=== PATIENT | female | born 1990 | race African-American/Black ===

== ENCOUNTER → 2018-04-10 | Outpatient (CLI) | payer OTHER | END | disposition home or self-care (01) | LOC: C.PATHSPEC 17:19 | PROVIDERS: ATTEND Surgery | DX: Z30.46 Encounter for surveillance of implantable subdermal contraceptive (principal) ==

== ENCOUNTER 2019-10-14 07:47 | Inpatient (IN) ==
[2019-10-14] MEDS ORDERED: OXYTOCIN 30 UNITS/500 ML BAG IV PRN ×3 (07:55→19:30)
--- NOTE | 2019-10-14 08:10 | History & Physical Report ---
Date of Service October 14, 2019 Assessment & Plan (1) Elective induction of labor planned: 29 yo F PMHx GDM diet-controlled @ 39.3 weeks here for elective induction of labor. - Planning epidural. - Anticipate vaginal delivery; Pit started. - Will need intrapartum GBS treatment; AROM will be performed after treatment completed. History of Present Illness Primary Care Provider: Fatemeh Blake MD Genaro is a 29 yo F ; dating parameters 39.3weeks by LMP; Reason for induction/; complications with GDM diet-controlled this . Attended OB appointments with [facility]. Denies contractions, confirms movement; denies fluid loss or vaginal bleeding. Labs (03/08/2019; 10/14/2019): Blood type: O+ Antibody screen: negative Hgb: 11.1 Hct: 34.0% WBC: 8.63 Plt: 189 Rubella status: immune VDLR/RPR: nonreactive Gonorrhea: negative Chlamydia: negative HIV: negative GBS: positive HbSAg: negative Allergies Allergy/AdvReac Type Severity Reaction Status Date / Time No Known Drug Allergies Allergy Unknown none Verified 10/11/19 14:28 Home Medications Home Medications Medication Instructions Recorded Confirmed Type vit-iron fum-folic ac 1 tab PO DAILY 07/28/19 10/14/19 History [ Vitamin] ondansetron 4 mg disintegrating 4 mg PO Q6H PRN #30 tab 08/12/19 10/14/19 Rx tablet acetone (urine) test #50 ea 08/15/19 10/14/19 Rx blood sugar diagnostic #120 ea 08/15/19 10/14/19 Rx lancets 33 gauge #120 ea 08/15/19 10/14/19 Rx ferrous sulfate 325 mg PO DAILY 10/03/19 10/14/19 History Patient History Medical History (Updated 10/14/19 @ 08:14 by Denisha Briceño DO) History of chlamydia infection History of spontaneous Miscarriage Surgical History (Updated 10/14/19 @ 08:10 by Adrianne Fernandes RN) H/O oral surgery wisdom teeth removed 2010 Status post laparoscopic cholecystectomy 2013 Social History (Updated 04/26/19 @ 14:43 by Ysabel Mcdermott) Preferred Language: Moldovan Communication Ability: Effective Resident Care Coordinator Required: No Beliefs That Will Affect Care: None marital status: Current Living Situation: Spouse and Family Other Information That Helps Us Care for You: No Feels Safe at Home: Yes Safety Concerns: Feels Safe At This Time Smoking Status: Never smoker Hx Alcohol Use: No Hx Substance Use: No Review of Systems Constitutional: denies fever, chills, sweats, headache Respiratory: denies SOB, difficulty breathing Cardiac: denies CP, chest palpitations, chest pressure Breast: denies breast pain : denies dysuria Physical Exam Physical Exam: General: patient is alert and oriented, in NAD Cardiac: +S1/S2, no murmurs rubs or gallops Respiratory: lungs CTA b/l, anteriorly and posteriorly, no wheezes rales or rhonchi, no increased work of breathing, symmetric chest rise, no respiratory distress Abdomen: soft, NT, +bowel sounds Uterus: uterine fundus firm. Lower Extremities: no LE edema or swelling, no deep calf pain, Terell's sign n egative b/l Genitourinary: Manual OB Exam: + cervical dilation 4 cm, + cervical effacement 60% and + station -2 OB Exam Monitor Tracing: + external FHT monitor used (HR 150s), + external uterine monitor used, + category I and + normal FHT variability Results & Data Vital Signs (Past 12 Hours) Vital Signs Pulse BP 10/14/19 08:04 111 H 136/82 Laboratory Results Laboratory Results - last 24 hr 10/14/19 08:04 WBC 8.63 RBC 4.44 Hgb 11.1 L Hct 34.0 L MCV 76.6 L MCH 25.0 MCHC 32.6 RDW Std Deviation 46.1 RDW Coeff of Nir 16.6 H Plt Count 189 MPV 10.3 Supervising Physician Co-Signing Physician Notes Resident Physician Supervision Note: I was present with Dr. Briceño during the history and exam. I discussed the case with the resident and agree with the findings and plan as documented in the note. Any exceptions or clarifications are listed here: Will plan to start pitocin and PCN for GBS prophylaxis. Will plan for AROM. Documented By: Kimberly Richardson DO Resident Activity Tracking Resident Involvement: Resident Care Provided Care Provided: OB Delivery
[2019-10-14] MEDS ORDERED: PENICILLIN G POTASSIUM 6 MU in DEXTROSE 5% 250 ML IV ONE (08:15)
[2019-10-14 08:29] LABS: Hemoglobin 11.1 g/dL (12.0-16.0); Mean Corpuscular Hgb Conc 32.6 g/dL (32-36); Mean Corpuscular Volume 76.6 fL (80-100); Mean Platelet Volume 10.3 fL (7.4-10.4); Platelet Count 189 K/uL (130-400); RDW Coefficient of Variation 16.6 % (11.5-14.5); RDW Standard Deviation 46.1 fL (36.4-46.3); Red Blood Count 4.44 M/uL (4.2-5.4); White Blood Count 8.63 K/uL (4.8-10.8)
[2019-10-14] MEDS: LACTATED RINGER'S 1,000 ML IV PRN ×2 (09:02→15:49)
[2019-10-14] MEDS: PENICILLIN G POTASSIUM 3 MU in DEXTROSE 5% 100 ML IV PRN ×2 (12:35→16:37)
--- NOTE | 2019-10-14 14:42 | Obstetrical Progress Note ---
Date of Service October 14, 2019 Subjective Feeling contractions. Pitocin at 19. Does not desire epidural at this time. AROM performed, clear fluid. Cervix 4-5/70/-2. FHT Cat 1 [place] Q 2 Results & Data Vital Signs (Past 12 Hours) Vital Signs Temp Pulse Resp BP 10/14/19 14:02 72 20 129/86 10/14/19 13:33 20 10/14/19 13:05 82 122/73 10/14/19 12:05 76 20 116/57 L 10/14/19 11:02 36.8 C 88 20 133/93 10/14/19 10:04 95 H 20 133/77 10/14/19 09:15 95 H 20 153/95 H 10/14/19 09:12 99 H 136/100 10/14/19 08:15 36.8 C 111 H 20 136/82 10/14/19 08:04 36.8 C 111 H 20 136/82 PG Care Time/CCT Total # of Minutes Spent Total Time Spent with Patient: Total time spent is greater than 50% in coordination of care (as documented) at patient's floor/unit and/or counseling patient:
[2019-10-14] MEDS ORDERED: fentaNYL citrate 100 MCG/2 ML VIAL ONE (15:23)
[2019-10-14] MEDS ORDERED: fentaNYL 2MCG/ML ROPIV 1.25MG/ML 100 ML BAG EPI ONE (15:24)
[2019-10-14] MEDS ORDERED: BUPIVACAINE 0.25% 30 ML VIAL ONE (15:24)
[2019-10-14] MEDS ORDERED: ePHEDrine sulfate 50 MG/ML AMP ONE (15:24)
[2019-10-14] MEDS ORDERED: ONDANSETRON INJ 2 MG/ML 2 ML VIAL IV PRN (16:04)
[2019-10-14] MEDS ORDERED: NALOXONE HCL 1 MG in SODIUM CHLORIDE 0.9% 1000ML 1,000 ML IV PRN (16:04)
[2019-10-14] MEDS ORDERED: ePHEDrine sulfate 50 MG/ML AMP IV PRN (16:04)
[2019-10-14] MEDS ORDERED: DiphenhydrAMINE HCL 50 MG/ML VIAL IV PRN (16:04)
[2019-10-14] MEDS ORDERED: fentaNYL 2MCG/ML ROPIV 1.25MG/ML 100 ML BAG EPI PRN (16:04)
[2019-10-14] MEDS ORDERED: NALOXONE HCL 0.4 MG/1 ML VIAL/CARP IV PRN (16:04)
[2019-10-14] MEDS ORDERED: NALBUPHINE HCL INJ 10 MG/ML AMP IV PRN (16:04)
--- NOTE | 2019-10-14 16:09 | Anesthesiology Consultation ---
Date of Service October 14, 2019 Assessment & Plan Chart Review Chart Review: Patient NOT seen in Pre Admission Testing and Acceptable Risk for Labor Epidural Consults Requested none ASA ASA3 Proposed Anesthesia Anesthesia Type: Labor Epidural and CSE Risk / Benefits Reviewed With: PT / POA / Parent / Guardian, Accepts Plan and Informed Consent Obtained History Height/Weight Height: 5 ft 3 in Weight: 127.913 kg Allergies Allergy/AdvReac Type Severity Reaction Status Date / Time No Known Drug Allergies Allergy Unknown none Verified 10/11/19 14:28 Medications Home Medications Medication Instructions Recorded Confirmed Last Taken vit-iron fum-folic ac 1 tab PO DAILY 07/28/19 10/14/19 10/13/19 08:00 [ Vitamin] ondansetron 4 mg disintegrating 4 mg PO Q6H PRN #30 tab 08/12/19 10/14/19 10/13/19 08:30 tablet acetone (urine) test #50 ea 08/15/19 10/14/19 Unknown blood sugar diagnostic #120 ea 08/15/19 10/14/19 Unknown lancets 33 gauge #120 ea 08/15/19 10/14/19 Unknown ferrous sulfate 325 mg PO DAILY 10/03/19 10/14/19 10/13/19 09:00 Active Medications Generic Name Dose Route Start Last Admin Trade Name Freq PRN Reason Stop Dose Admin Lactated Ringer's 1,000 mls @ 125 mls/hr 10/14/19 07:55 10/14/19 15:49 Lr IV 10/16/19 07:54 999 mls/hr .Q8H PRN Administration L&D Protocol Protocol Penicillin G Potassium 3 mu/ 106 mls @ 100 mls/hr 10/14/19 07:55 10/14/19 12:35 Dextrose IV 10/24/19 07:54 100 mls/hr Q4H PRN Administration Give until delivery Oxytocin 30 units in 500 mls @ 19 mls/hr 10/14/19 07:59 10/14/19 15:10 Pitocin IV 10/16/19 07:58 1.14 units/hr .Q24H PRN 19 mls/hr Labor Induction/Augmentation Titration Protocol 1.14 UNITS/HR NPO Date Last Intake of Fluids: 10/14/19 Time Last Intake of Fluids: 15:00 Date Last Intake of Solids: 10/14/19 Time Last Intake of Solids: 10:30 Past Medical History Medical History (Updated 10/14/19 @ 16:08 by Ivan Lopez MD) History of chlamydia infection History of spontaneous Miscarriage Morbid obesity Exercise / Class Metabolic Activity II 4-5 Yardwork/Stairs/Walk up hill Past Family History Family History Mother Stroke Diabetes Glaucoma Hypertension Grandfather (Maternal) Stroke Diabetes Hypertension Myocardial infarction Prostate cancer Grandmother (Maternal) Diabetes Glaucoma Hypertension Myocardial infarction Father Hypertension Past Surgical History Surgical History H/O oral surgery wisdom teeth removed 2010 Status post laparoscopic cholecystectomy 2013 Past Anesthesia History No Hx of Anesthesia Complications and No Family Hx of Anesthesia Complications History of PONV No Hx of PONV and No Hx of Motion Sickness Social History Smoking Status: Never smoker Hx Alcohol Use: No Hx Substance Use: No substance use type: does not use Review of Systems no chest pain or sob Physical Exam Vital Signs Last Vital Signs Temp 36.7 C 10/14/19 15:00 Pulse 87 10/14/19 16:07 Resp 18 10/14/19 15:00 BP 135/69 10/14/19 16:06 Pulse Ox 100 10/14/19 16:07 ENMT Mouth: no TMJ abnormality Thyromental Distance: > or= 3.5 Finger Breadths Mallampati Class: II Neck normal visual inspection Respiratory normal respiratory effort Auscultation: lungs clear to auscultation bilaterally Cardiovascular Rate/Rhythm: regular rate and regular rhythm Musculoskeletal Spine: normal cervical ROM Neurologic moves all extremities Psychiatric Orientation: alert and oriented x 3 Testing Laboratory Results 10/14/19 08:04 10/14/19 10/14/19 10/14/19 14:58 13:06 11:04 POC Glucose 81 75 87 10/14/19 09:00 POC Glucose 118 H
--- NOTE | 2019-10-14 19:21 | Delivery Summary ---
Vaginal Delivery Summary Date of Service October 14, 2019 Vaginal Delivery Summary Vaginal Delivery Summary: Pre-delivery diagnoses: 29yo @ 39 3/7 , GDM, obesity, GBS+ Post-delivery diagnoses: same Procedure: spontaneous vaginal delivery Surgeon: Kimberly Richardson DO Complications: none Findings: Viable female . Apgars: 8/9 . Weight pending, please see nursery records Estimated blood loss: 300ml Description of delivery: The patient progressed to complete with epidural anesthesia. She then began to push. She spontaneously vaginally delivered a viable from the cephalic presentation. The head delivered in NATHAN position. Nuchal cord x1, easily reduced. The anterior shoulder delivered, followed by the posterior shoulder, followed by the body. The baby was placed on mother's abdomen and a spontaneous cry was heard. Delayed cord clamping was employed, and the cord was doubly clamped and cut. Cord blood was obtained. The placenta was delivered spontaneously intact with a 3-vessel cord. The uterus and vagina were swept of clots and debris. IV pitocin was given. The uterus became firm. The cervix, vagina, and perineum were inspected and no lacerations were noted. Excellent hemostasis was observed. The mother and baby are recovering in stable and good condition in the room. Sponge and instrument counts were correct x 2. Kimberly Richardson DO [facility]
[2019-10-14] MEDS ORDERED: ACETAMINOPHEN 325 MG TAB PO PRN (19:30)
[2019-10-14] MEDS ORDERED: BENZOCAINE 20% AER SPR 82.5 GM CAN EXT PRN (19:30)
[2019-10-14] MEDS ORDERED: HYDROCORTISONE ACETATE 25 MG SUPP PR PRN (19:30)
[2019-10-14] MEDS ORDERED: SUPERCREAM 0.870% 15 GM JAR EXT PRN (19:30)
[2019-10-14] MEDS ORDERED: bisacodyL 10 MG SUPP PR PRN (19:30)
[2019-10-14] MEDS ORDERED: DIPHTHERIA/TETANUS/PERTUSSIS 0.5 ML SYR/VIAL IM ONE (19:30)
[2019-10-14] MEDS ORDERED: OXYCODONE/ACETAMINOPHEN 5mg/325mg TAB PO PRN (19:30)
[2019-10-14] MEDS: DOCUSATE SODIUM 100 MG CAP PO SCH (23:28)
[2019-10-15] MEDS: IBUPROFEN 600 MG TAB PO PRN ×4 (00:37→18:54)
--- NOTE | 2019-10-15 06:14 | Obstetrical Progress Note ---
Date of Service <Denisha Briceño - Last Filed: 10/15/19 07:07> October 15, 2019 Assessment & Plan <Denisha Briceño - Last Filed: 10/15/19 07:07> (1) Encounter for care and examination after delivery: 29 yo F PPD #1 following vaginal delivery at 39.3w, doing well and without complaints this morning. - PPD #1 - Feels well, ambulating well, voiding well. - Will continue routine care. - Following d/c will have f/u in 6 weeks. - Blood type O+, Rubella immune. Subjective <Denisha Briceño - Last Filed: 10/15/19 07:07> Genaro is a 29 yo female ; PPD # 1 following vaginal delivery at 39.3weeks with complicated by diet-controlled GDM; doing well this AM; no abdominal cramping/pain; voiding well; tolerating meals overnight, able to ambulate some within the room. Some persistent spotting this morning but improved from yesterday. Is and not having difficulties with latching. Review of Systems Constitutional: denies fever, chills, sweats, headache Respiratory: denies SOB, difficulty breathing Cardiac: denies CP, chest palpitations, chest pressure Breast: denies breast pain : denies dysuria Physical Exam <Denisha Wheelerguanako - Last Filed: 10/15/19 07:07> General: patient is alert and oriented, in NAD Cardiac: +S1/S2, no murmurs rubs or gallops Respiratory: lungs CTA b/l, anteriorly and posteriorly, no wheezes rales or rhonchi, no increased work of breathing, symmetric chest rise, no respiratory distress Abdomen: soft, NT, +bowel sounds Uterus: uterine fundus firm, palpable below the level of the umbilicus Lower Extremities: no LE edema or swelling, no deep calf pain, Terell's sign negative b/l Results & Data <Denisha Wheelerguanako - Last Filed: 10/15/19 07:07> Vital Signs (Past 12 Hours) Vital Signs Temp Pulse Pulse Resp BP BP Pulse Ox 10/15/19 04:15 36.7 C 71 18 125/83 10/14/19 22:35 37.1 C 94 H 18 115/86 10/14/19 21:42 82 134/80 10/14/19 20:55 80 137/92 10/14/19 20:40 70 129/60 10/14/19 20:25 74 135/65 10/14/19 20:10 74 128/69 10/14/19 19:59 81 74 L 10/14/19 19:58 90 141/67 H 10/14/19 19:55 81 125/58 L 10/14/19 19:54 79 85 L 10/14/19 19:49 92 H 100 10/14/19 19:44 84 100 10/14/19 19:43 85 132/70 10/14/19 19:41 87 93 10/14/19 19:40 87 58/32 L 10/14/19 19:39 95 H 100 10/14/19 19:34 93 H 99 10/14/19 19:29 89 98 10/14/19 19:28 91 H 93 10/14/19 19:25 88 122/56 L 10/14/19 19:24 91 H 100 10/14/19 19:21 88 90 10/14/19 19:19 89 100 10/14/19 19:14 87 100 10/14/19 19:10 92 H 112/61 10/14/19 19:09 93 H 100 10/14/19 19:08 94 H 90 10/14/19 19:04 89 100 10/14/19 19:01 80 93 10/14/19 18:59 78 100 10/14/19 18:54 79 66 L 10/14/19 18:49 86 95 10/14/19 18:44 82 184/117 H 80 L 10/14/19 18:43 80 92 10/14/19 18:39 88 99 10/14/19 18:38 79 91 10/14/19 18:34 82 100 10/14/19 18:29 85 99 10/14/19 18:24 79 100 10/14/19 18:19 79 100 10/14/19 18:18 80 93 10/14/19 18:14 80 128/60 100 Laboratory Results Laboratory Results - last 24 hr 10/14/19 10/14/19 10/14/19 08:04 09:00 11:04 WBC 8.63 RBC 4.44 Hgb 11.1 L Hct 34.0 L MCV 76.6 L MCH 25.0 MCHC 32.6 RDW Std Deviation 46.1 RDW Coeff of Nir 16.6 H Plt Count 189 MPV 10.3 POC Glucose 118 H 87 10/14/19 10/14/19 10/14/19 13:06 14:58 17:02 WBC RBC Hgb Hct MCV MCH MCHC RDW Std Deviation RDW Coeff of Nir Plt Count MPV POC Glucose 75 81 92 10/15/19 06:01 WBC RBC Hgb 11.5 L Hct 34.7 L MCV MCH MCHC RDW Std Deviation RDW Coeff of Nir Plt Count MPV POC Glucose Medications Administered Current Medications Acetaminophen (Tylenol) 650 mg PO Q6H PRN PRN Reason: Pain/ESCUDERO/Fever Stop: 11/13/19 19:29 Benzocaine (Dermoplast Pain Relieving [place]) 1 appln EXT PRN PRN PRN Reason: Perineal Discomfort Stop: 11/13/19 19:29 Bisacodyl (Dulcolax) 5 mg PO [facility] Stop: 10/15/19 20:01 Bisacodyl (Dulcolax) 10 mg [place] DAILY PRN PRN Reason: No BM on 2nd post- day Stop: 11/13/19 19:29 Cocaine HCl (Supercream 0.870%) 1 gm EXT BID PRN PRN Reason: Hemorrhoidal Inflammation Stop: 10/28/19 19:29 Diphenhydramine HCl (Benadryl Capsule) 25 mg PO Q6H PRN PRN Reason: Itching Stop: 11/13/19 23:22 Last Admin: 10/14/19 23:38 Dose: 25 mg Documented by: Docusate Sodium (Colace) 100 mg PO DAILY@08,[facility] Stop: 11/13/19 20:59 Last Admin: 10/14/19 23:28 Dose: Not Given Documented by: Hydrocortisone (Anusol Hc) 25 mg NV BID PRN PRN Reason: Hemorrhoidal Inflammation Stop: 11/13/19 19:29 Oxytocin (Pitocin) 30 units in 500 mls @ 333.333 mls/hr IV .Q1H30M PRN; Protocol PRN Reason: Bleeding Control Stop: 11/13/19 19:29 Ibuprofen (Motrin) 600 mg PO Q4H PRN PRN Reason: Pain/ESCUDERO/Cramping/Fever Stop: 11/13/19 19:29 Last Admin: 10/15/19 04:52 Dose: 600 mg Documented by: Oxycodone/Acetaminophen (Percocet 5mg/325mg) 1 tab PO Q4H PRN PRN Reason: Pain not relieved by... Stop: 10/28/19 19:29 Prenat Multivit/[place]/Iron/Folic Ac ( Vitamin) 1 tab PO DAILY@08 [facility] Stop: 11/14/19 07:59 <Kimberly Richardson DO - Last Filed: 10/15/19 08:24> Co-Signing Physician Notes Resident Physician Supervision Note: I interviewed and examined the patient. Discussed with Dr. Briceño and agree with findings and plan as documented in the note. Any exceptions or clarifications are listed here: PPD#1 doing well, anticipate DC home tomorrow. Documented By: Kimberly Richardson DO Resident Activity Tracking <Denisha Briceño DO - Last Filed: 10/15/19 07:07> Resident Involvement: Resident Care Provided Care Provided: OB Delivery
[2019-10-15 06:42] LABS: Hematocrit (blood only) 34.7 % (37-47); Hemoglobin 11.5 g/dL (12.0-16.0)
--- NOTE | 2019-10-15 07:50 | Anesthesia Procedure Note ---
Date of Service October 15, 2019 Anesthesia Post Epidural Note Vital Signs Vital Signs: Temp Pulse Resp BP Pulse Ox 36.7 C 71 18 125/83 74 L 10/15/19 04:15 10/15/19 04:15 10/15/19 04:15 10/15/19 04:15 10/14/19 19:59 Pain Intensity Bilateral Abdomen: Pain Intensity: 0 Notes Mental Status: alert / awake / arousable and participated in evaluation Nausea / Vomiting: adequately controlled Pain: adequately controlled Airway Patency, RR, SpO2: stable & adequate BP & HR: stable & adequate Hydration State: stable & adequate Neuraxial Anesthesia: was administered and sensory block is resolving Anesthetic Complications: no major complications apparent Epidural: Removed without complications and With tip intact
[2019-10-15] MEDS: PRENATAL VITAMIN 1 TAB PO SCH (09:03)
[2019-10-15] MEDS: DOCUSATE SODIUM 100 MG CAP PO SCH ×2 (09:03→20:27)
[2019-10-15] MEDS ORDERED: bisacodyL 5 MG TABEC PO SCH (20:00)
--- NOTE | 2019-10-16 06:02 | Obstetrical Progress Note ---
Date of Service <Denisha Briceño DO - Last Filed: 10/16/19 06:28> October 16, 2019 Assessment & Plan <Denisha Briceño DO - Last Filed: 10/16/19 06:28> (1) Encounter for care and examination after delivery: 29 yo F PPD #2 following vaginal delivery at 39.3w, doing well and without complaints this morning. - PPD #2. - Feels well, ambulating well, voiding well. - Received appropriate GBS prophylaxis during labor with PCN. - For discharge today. - Following d/c will have f/u in 6 weeks. - Blood type O+, Rubella immune. - Went over discharge instructions and answered all patient questions. Subjective <Denisha Briceño DO - Last Filed: 10/16/19 06:28> Genaro is a 29 yo female ; PPD # 1 following vaginal delivery at 39.3weeks with complicated by diet-controlled GDM; doing well this AM; no abdominal cramping/pain; voiding well; tolerating meals overnight, able to ambulate some within the room. Some persistent spotting this morning but improved from yesterday. Is and not having difficulties with latching. Review of Systems Constitutional: denies fever, chills, sweats, headache Respiratory: denies SOB, difficulty breathing Cardiac: denies CP, chest palpitations, chest pressure Breast: denies breast pain : denies dysuria Physical Exam <Denisha Briceño DO - Last Filed: 10/16/19 06:28> General: patient is alert and oriented, in NAD Cardiac: +S1/S2, no murmurs rubs or gallops Respiratory: lungs CTA b/l, anteriorly and posteriorly, no wheezes rales or rhonchi, no increased work of breathing, symmetric chest rise, no respiratory distress Abdomen: soft, NT, +bowel sounds Uterus: uterine fundus firm, palpable below the level of the umbilicus Lower Extremities: no LE edema or swelling, no deep calf pain, Terell's sign negative b/l Results & Data <Denisha Briceño DO - Last Filed: 10/16/19 06:28> Vital Signs (Past 12 Hours) Vital Signs Temp Pulse Resp BP 10/16/19 00:10 36.7 C 66 18 127/84 Laboratory Results Laboratory Results - last 24 hr 10/15/19 06:01 Hgb 11.5 L Hct 34.7 L Medications Administered Current Medications Acetaminophen (Tylenol) 650 mg PO Q6H PRN PRN Reason: Pain/ESCUDERO/Fever Stop: 11/13/19 19:29 Benzocaine (Dermoplast Pain Relieving [place]) 1 appln EXT PRN PRN PRN Reason: Perineal Discomfort Stop: 11/13/19 19:29 Bisacodyl (Dulcolax) 10 mg [place] DAILY PRN PRN Reason: No BM on 2nd post- day Stop: 11/13/19 19:29 Cocaine HCl (Supercream 0.870%) 1 gm EXT BID PRN PRN Reason: Hemorrhoidal Inflammation Stop: 10/28/19 19:29 Diphenhydramine HCl (Benadryl Capsule) 25 mg PO Q6H PRN PRN Reason: Itching Stop: 11/13/19 23:22 Last Admin: 10/14/19 23:38 Dose: 25 mg Documented by: Docusate Sodium (Colace) 100 mg PO DAILY@, [facility] Stop: 11/13/19 20:59 Last Admin: 10/15/19 20:27 Dose: 100 mg Documented by: Hydrocortisone (Anusol Hc) 25 mg [place] BID PRN PRN Reason: Hemorrhoidal Inflammation Stop: 11/13/19 19:29 Oxytocin (Pitocin) 30 units in 500 mls @ 333.333 mls/hr IV .Q1H30M PRN; Protocol PRN Reason: Bleeding Control Stop: 11/13/19 19:29 Ibuprofen (Motrin) 600 mg PO Q4H PRN PRN Reason: Pain/ESCUDERO/Cramping/Fever Stop: 11/13/19 19:29 Last Admin: 10/16/19 06:24 Dose: 600 mg Documented by: Oxycodone/Acetaminophen (Percocet 5mg/325mg) 1 tab PO Q4H PRN PRN Reason: Pain not relieved by... Stop: 10/28/19 19:29 Prenat Multivit/Chief Cardiopulmonary Technologist/Iron/Folic Ac ( Vitamin) 1 tab PO DAILY@08 [facility] Stop: 11/14/19 07:59 Last Admin: 10/15/19 09:03 Dose: 1 tab Documented by: <Nadeen Birmingham MD - Last Filed: 10/16/19 06:55> Co-Signing Physician Notes I have reviewed the resident's note and examined the patient myself, and agree with the note above. Resident Activity Tracking <Denisha Briceño DO - Last Filed: 10/16/19 06:28> Resident Involvement: Resident Care Provided Care Provided: OB Delivery
[2019-10-16] MEDS: IBUPROFEN 600 MG TAB PO PRN (06:24)
[2019-10-16] MEDS: PRENATAL VITAMIN 1 TAB PO SCH (08:48)
[2019-10-16] MEDS: DOCUSATE SODIUM 100 MG CAP PO SCH (08:48)
== END 2019-10-16 13:55 | disposition home or self-care (01) | DRG 807 ==
LOC: 4S1 07:47 → 4S2 22:02

== ENCOUNTER 2022-01-24 07:59 | Inpatient (IN) ==
[2022-01-24] MEDS ORDERED: OXYTOCIN 30 UNITS/500 ML BAG IV PRN ×3 (08:07→21:45)
--- NOTE | 2022-01-24 08:12 | History & Physical Report ---
Date of Service January 24, 2022 Assessment & Plan (1) Encounter for induction of labor: (2) Gestational diabetes mellitus (GDM) affecting , antepartum: (3) Obesity affecting , antepartum: Plan: Admit, iv labs. plan pitocin and pcn for gbs pos. arom when able. check bsg now and q2hr in active labor. Admission and Anticipated Discharge Date Admission Date: January 24, 2022 History of Present Illness Chief Complaint: induction Primary Care Provider: Fatemeh Blake MD 31yo at 39+wks [place] presents to L&D for planned induction of labor. Pt denies ctx, rom, vb. +FM. PNC c/b 1. obesity, aga growth u/s at 32wks 2. GDM, elevated ac% but never put on insulin PNL rhpos, ri, GBS pos OBH: x 3 GYNH: nl paps Allergies Allergy/AdvReac Type Severity Reaction Status Date / Time cat dander Allergy Intermediate PUFFY Verified 01/21/22 14:19 EYES, ITCHY THROAT Home Medications Medication Instructions Recorded Confirmed Type prenat.vits,isha,[id number] 1 tab PO DAILY 06/16/21 01/21/22 History acetone (urine) test (Ketone Urine #50 ea 07/19/21 01/21/22 Rx Test) blood sugar diagnostic (OneTouch #150 ea 07/19/21 01/21/22 Rx Verio test strips) blood-glucose meter (OneTouch #1 ea 07/19/21 01/21/22 Rx Verio Flex meter) lancets 33 gauge (OneTouch Delica #150 ea 07/19/21 01/21/22 Rx Plus Lancet) breast pump #1 ea 01/20/22 01/21/22 Rx Patient History Medical History (Updated 01/24/22 @ 08:11 by Massiel Flores MD, FACOG) History of chicken pox History of chlamydia infection History of spontaneous Miscarriage Morbid obesity Surgical History H/O oral surgery wisdom teeth removed 2010 Status post laparoscopic cholecystectomy 2013 Family History (Updated 06/16/21 @ 14:07 by Fatemeh Sandoval) Mother Stroke Diabetes Glaucoma Hypertension Grandfather (Maternal) Stroke Diabetes Hypertension Myocardial infarction Prostate cancer Colorectal cancer Grandmother (Maternal) Diabetes Glaucoma Hypertension Myocardial infarction Father Hypertension Denies family history of Ovarian cancer Breast cancer Social History (Updated 06/16/21 @ 14:08 by Fatemeh Sandoval) Smoking Status: Never smoker Hx Alcohol Use: No Hx Substance Use: No Preferred Language: Swedish Communication Ability: Effective 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 Beliefs That Will Affect Care: None marital status: marital status details: Edgar Mckeon [phone] Current Living Situation: Spouse and Family Current Living Situation Comment: lives with spouse, 3 children, no pets current occupational status: employed and student 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 [employer] Feels Safe at Home: Yes Assistive Devices: None Review of Systems as per Subjective / HPI Physical Exam Constitutional: WD/WN, vitals as above Respiratory: normal respiratory effort, lungs clear to auscultation Cardiovascular: Rate/Rhythm: regular rate and regular rhythm Gastrointestinal (Abdomen): soft gravid nt efw 7-8# Musculoskeletal: no edema nontender calves Neurologic: grossly normal Psychiatric: A+Ox3, euthymic affect Genitourinary: Manual OB Exam: + cervical dilation (2-3), + cervical effacement 70% and + station -2 OB Exam Monitor Tracing: + external FHT monitor used, + external uterine monitor used, + category I and + normal FHT variability Coding Level of Care Code None Diagnoses Encounter for induction of labor Z34.90 Gestational diabetes mellitus (GDM) affecting , antepartum O24.419 Obesity affecting , antepartum O99.210
[2022-01-24] MEDS ORDERED: PENICILLIN G POTASSIUM 6 MU in DEXTROSE 5% 250 ML IV SCH (08:30)
[2022-01-24 08:31] LABS: Hematocrit (blood only) 32.6 % (37-47); Hemoglobin 10.4 g/dL (12.0-16.0); Mean Corpuscular Hgb Conc 31.9 g/dL (32-36); Mean Corpuscular Volume 75.3 fL (80-100); Mean Platelet Volume 9.9 fL (7.4-10.4); Platelet Count 190 K/uL (130-400); RDW Coefficient of Variation 15.8 % (11.5-14.5); RDW Standard Deviation 43.3 fL (36.4-46.3); Red Blood Count 4.33 M/uL (4.2-5.4); White Blood Count 7.63 K/uL (4.8-10.8)
[2022-01-24] MEDS: LACTATED RINGER'S 1,000 ML IV PRN ×2 (08:44→16:18)
[2022-01-24] MEDS: PENICILLIN G POTASSIUM 3 MU in DEXTROSE 5% 100 ML IV PRN ×2 (13:10→17:33)
--- NOTE | 2022-01-24 14:23 | Labor Progress Brief Note ---
Date of Service January 24, 2022 Subjective comfortable, no pain complaints pit at 5 Constitutional: as per Subjective / HPI Assessment & Plan (1) Encounter for induction of labor: (2) Gestational diabetes mellitus (GDM) affecting , antepartum: (3) Obesity affecting , antepartum: Plan: will see how arom helps labor pattern. fhts categ 1. c/w pit. Admission and Anticipated Discharge Date Admission Date: January 24, 2022 Physical Exam Constitutional: WD/WN, vitals as above Genitourinary: Manual OB Exam: + cervical dilation 3 cm, + cervical effacement 70%, + station -2 and + amniotic fluid (AROM) meconium OB Exam Monitor Tracing: + external FHT monitor used, + external uterine monitor used (? tracing irreg), + category I and + normal FHT variability Results & Data ([facility]) Vital Signs (Past 12 Hours) Vital Signs Temp Pulse Resp BP 01/24/22 14:11 85 144/73 H 01/24/22 13:15 98.1 F 20 01/24/22 13:05 80 134/85 01/24/22 10:22 88 138/71 01/24/22 10:21 90 154/85 H 01/24/22 09:23 91 H 133/75 01/24/22 08:18 97.9 F 97 H 20 130/62 Coding Level of Care Code None Diagnoses Encounter for induction of labor Z34.90 Gestational diabetes mellitus (GDM) affecting , antepartum O24.419 Obesity affecting , antepartum O99.210
[2022-01-24] MEDS ORDERED: ePHEDrine sulfate 50 MG/ML AMP ONE (15:55)
[2022-01-24] MEDS ORDERED: BUPIVACAINE 0.25% 30 ML VIAL ONE (15:56)
[2022-01-24] MEDS ORDERED: fentaNYL citrate 100 MCG/2 ML VIAL ONE (15:56)
[2022-01-24] MEDS ORDERED: SODIUM CHLORIDE 0.9% INJ 10 ML VIAL ONE (15:56)
[2022-01-24] MEDS ORDERED: fentaNYL 2MCG/ML ROPIVACAINE 1.25MG/ML 100 ML BAG EPI ONE (15:57)
[2022-01-24] MEDS ORDERED: ONDANSETRON INJ 2 MG/ML 2 ML VIAL IV PRN (16:12)
[2022-01-24] MEDS ORDERED: NALOXONE HCL 1 MG in SODIUM CHLORIDE 0.9% 1000ML 1,000 ML IV PRN (16:12)
[2022-01-24] MEDS ORDERED: ePHEDrine sulfate 50 MG/ML AMP IV PRN (16:12)
[2022-01-24] MEDS ORDERED: NALOXONE HCL 0.4 MG/1 ML VIAL/CARP IV PRN (16:12)
[2022-01-24] MEDS ORDERED: NALBUPHINE HCL INJ 10 MG/ML AMP IV PRN (16:12)
[2022-01-24] MEDS ORDERED: fentaNYL 2MCG/ML ROPIVACAINE 1.25MG/ML 100 ML BAG EPI PRN (16:12)
[2022-01-24] MEDS ORDERED: diphenhydrAMINE 50 MG/ML VIAL IV PRN (16:12)
--- NOTE | 2022-01-24 16:23 | Anesthesiology Consultation ---
Date of Service January 24, 2022 Assessment & Plan Chart Review Chart Review: Patient NOT seen in Pre Admission Testing and Acceptable Risk for Labor Epidural Consults Requested none ASA ASA2 Proposed Anesthesia Anesthesia Type: Labor Epidural and CSE Risk / Benefits Reviewed With: PT / POA / Parent / Guardian, Accepts Plan and Informed Consent Obtained History Height/Weight Height: 5 ft 2 in Weight: 128.82 kg Allergies Allergy/AdvReac Type Severity Reaction Status Date / Time cat dander Allergy Intermediate PUFFY Verified 01/21/22 14:19 EYES, ITCHY THROAT Medications Home Medications Medication Instructions Recorded Confirmed Last Taken acetone (urine) test (Ketone Urine #50 ea 07/19/21 01/21/22 Unknown Test) blood sugar diagnostic (OneTouch #150 ea 07/19/21 01/21/22 Unknown Verio test strips) blood-glucose meter (OneTouch #1 ea 07/19/21 01/21/22 Unknown Verio Flex meter) lancets 33 gauge (OneTouch Delica #150 ea 07/19/21 01/21/22 Unknown Plus Lancet) breast pump #1 ea 01/20/22 01/21/22 Unknown prenat.vits,isha,[id number]-[id number] 1 tab PO DAILY 01/24/22 01/24/22 01/24/22 06:00 Active Medications Generic Name Dose Route Start Last Admin Trade Name Freq PRN Reason Stop Dose Admin Oxytocin 30 units in 500 mls @ 9 mls/hr 01/24/22 08:07 01/24/22 15:00 Pitocin IV 01/26/22 08:06 0.54 units/hr .Q24H PRN 9 mls/hr Labor Induction/Augmentation Titration Protocol 0.54 UNITS/HR Lactated Ringer's 1,000 mls @ 125 mls/hr 01/24/22 08:07 01/24/22 16:18 Lr IV 01/26/22 08:06 999 mls/hr .Q8H PRN Administration L&D Protocol Protocol Penicillin G Potassium 6 mu/ 262 mls @ 262 mls/hr 01/24/22 08:30 01/24/22 09:18 Dextrose IV 02/03/22 08:29 262 mls/hr NOW WILFRED Administration Penicillin G Potassium 3 mu/ 106 mls @ 100 mls/hr 01/24/22 11:07 01/24/22 13:10 Dextrose IV 02/03/22 11:06 100 mls/hr Q4H PRN Administration GBS(+) Until Delivery NPO Date Last Intake of Fluids: 01/24/22 Time Last Intake of Fluids: 14:00 Date Last Intake of Solids: 01/24/22 Time Last Intake of Solids: 08:00 Past Medical History Medical History Gestational diabetes mellitus (GDM) affecting , antepartum History of chicken pox History of chlamydia infection History of spontaneous Miscarriage Morbid obesity Exercise / Class Metabolic Activity II 4-5 Yardwork/Stairs/Walk up hill Past Family History Family History Mother Stroke Diabetes Glaucoma Hypertension Grandfather (Maternal) Stroke Diabetes Hypertension Myocardial infarction Prostate cancer Colorectal cancer Grandmother (Maternal) Diabetes Glaucoma Hypertension Myocardial infarction Father Hypertension Denies family history of Ovarian cancer Breast cancer Past Surgical History Surgical History H/O oral surgery wisdom teeth removed 2011 Status post laparoscopic cholecystectomy 2014 Past Anesthesia History No Hx of Anesthesia Complications and No Family Hx of Anesthesia Complications History of PONV No Hx of PONV and No Hx of Motion Sickness Social History Smoking Status: Never smoker Hx Alcohol Use: No Hx Substance Use: No substance use type: does not use Review of Systems no chest pain or sob Physical Exam Vital Signs Last Vital Signs Temp 36.7 C 01/24/22 13:15 Pulse 84 01/24/22 16:17 Resp 20 01/24/22 13:15 BP 123/73 01/24/22 16:07 Pulse Ox 100 01/24/22 16:17 ENMT Mouth: no TMJ abnormality Thyromental Distance: > or= 3.5 Finger Breadths Mallampati Class: II Neck normal visual inspection Respiratory normal respiratory effort Auscultation: lungs clear to auscultation bilaterally Cardiovascular Rate/Rhythm: regular rate and regular rhythm Musculoskeletal Spine: normal cervical ROM Neurologic moves all extremities Psychiatric Orientation: alert and oriented x 3 Testing Laboratory Results 01/24/22 08:18 Blood Type O Positive 01/24/22 08:18 Antibody Screen NEGATIVE 01/24/22 08:18 01/24/22 01/24/22 16:16 09:56 POC Glucose 160 H 145 H
--- NOTE | 2022-01-24 20:32 | Delivery Summary ---
Vaginal Delivery Summary Date of Service January 24, 2022 Vaginal Delivery Summary The patient dilated to complete and pushed to deliver a viable female Apgars 8 and 9 via over intact perineum. Mouth and nose bulb suctioned at perineum. Shoulders and body delivered with ease. was vigorous and crying at . Cord clamped at 30 seconds of life and infant to maternal abdomen where the cord was then doubly clamped and cut. Placenta delivered spontaneously and intact, three-vessel cord. Hemostasis achieved with dilute pitocin and uterine massage and drainage of the bladder for approximately 25 cc under sterile conditions. Cervix and sulci intact. EBL 300 cc. Mother and baby stable recovery. [facility] Vaginal Delivery Charge Delivery Type Details:
[2022-01-24] MEDS ORDERED: BENZOCAINE 20% AER SPR 82.5 GM CAN EXT PRN (21:45)
[2022-01-24] MEDS ORDERED: DIPHTHERIA/TETANUS/PERTUSSIS 0.5 ML SYR/VIAL IM ONE (21:45)
[2022-01-24] MEDS ORDERED: oxyCODONE/ACETAMINOPHEN 5mg/325mg TAB PO PRN (21:45)
[2022-01-24] MEDS ORDERED: OXYTOCIN 20 UNITS in LACTATED RINGER'S 1,000 ML IV SCH (21:45)
[2022-01-24] MEDS ORDERED: ACETAMINOPHEN 325 MG TAB PO PRN (21:45)
[2022-01-24] MEDS ORDERED: HYDROCORTISONE ACETATE 25 MG SUPP PR PRN (21:45)
--- NOTE | 2022-01-24 21:45 | Anesthesia Procedure Note ---
Date of Service January 24, 2022 Anesthesia Post Epidural Note Vital Signs Vital Signs: Temp Pulse Resp BP Pulse Ox 37.2 C 72 20 113/73 90 01/24/22 19:00 01/24/22 21:43 01/24/22 19:00 01/24/22 21:43 01/24/22 20:23 Notes Mental Status: alert / awake / arousable and participated in evaluation Nausea / Vomiting: adequately controlled Pain: adequately controlled Airway Patency, RR, SpO2: stable & adequate BP & HR: stable & adequate Hydration State: stable & adequate Neuraxial Anesthesia: was administered and sensory block is resolving Anesthetic Complications: no major complications apparent and Pt Satisfied with anesthetic care Epidural: Removed without complications and With tip intact
[2022-01-24] MEDS: DOCUSATE SODIUM 100 MG CAP PO SCH (22:10)
[2022-01-24] MEDS ORDERED: diphenhydrAMINE Capsule 25 MG CAP PO PRN (23:37)
[2022-01-25] MEDS: IBUPROFEN 600 MG TAB PO PRN ×3 (03:35→13:56)
--- NOTE | 2022-01-25 07:14 | Obstetrical Progress Note ---
Date of Service January 25, 2022 Assessment & Plan (1) care and examination: stable, routine care. rh pos, ri, . Day #:: 1 Subjective Ambulation: ambulating normally Voiding: no voiding problems Diet Tolerance:: regular diet Lochia:: Small Feeding Type:: breast feeding cramps but managed with motrin. no complaints. Constitutional: + as per Subjective / HPI Physical Exam Constitutional WD/WN, vitals as above Respiratory normal respiratory effort, lungs clear to auscultation Cardiovascular Rate/Rhythm: regular rate and regular rhythm Gastrointestinal (Abdomen) Inspection/Auscultation: abdomen normal to inspection Percussion/Palpation: abdomen soft Fundus firm 1cm down Musculoskeletal nt calves no edema Neurologic grossly normal Psychiatric A+Ox3, euthymic affect Results & Data ([facility]) Vital Signs (Past 12 Hours) Vital Signs Temp Pulse Pulse Resp BP BP Pulse Ox 01/25/22 04:00 98.8 F 94 H 20 124/70 99 01/24/22 23:00 97.9 F 90 18 129/79 98 01/24/22 22:13 83 112/65 01/24/22 21:58 76 114/63 01/24/22 21:43 72 113/73 01/24/22 21:29 93 H 131/65 01/24/22 21:13 78 138/80 01/24/22 20:45 81 128/62 01/24/22 20:23 84 90 01/24/22 20:14 93 H 89 L 01/24/22 20:12 108 H 100 01/24/22 20:07 80 100 01/24/22 20:05 88 92 01/24/22 20:02 90 100 01/24/22 20:00 95 H 84 L 01/24/22 19:57 91 H 100 01/24/22 19:53 88 81 L 01/24/22 19:52 96 H 87 L 01/24/22 19:47 110 H 95 01/24/22 19:44 86 135/67 01/24/22 19:42 85 100 01/24/22 19:38 82 94 01/24/22 19:37 80 100 01/24/22 19:32 80 100 01/24/22 19:30 78 92 01/24/22 19:29 76 134/63 01/24/22 19:27 88 100 01/24/22 19:22 89 89 L 01/24/22 19:17 77 100 01/24/22 19:15 76 135/63
[2022-01-25] MEDS: PRENATAL VITAMIN 1 TAB PO SCH (07:44)
[2022-01-25] MEDS: DOCUSATE SODIUM 100 MG CAP PO SCH ×2 (07:44→20:25)
--- NOTE | 2022-01-26 07:27 | Obstetrical Progress Note ---
Date of Service January 26, 2022 Assessment & Plan (1) care and examination: 31 yo PP2 from , doing well -Meeting all pp milestones -O+/rubella immune/ -f/u 6 weeks for appt, stable for d/c home Subjective Ambulation: ambulating normally Voiding: no voiding problems Passing Gas:: Yes Diet Tolerance:: regular diet Lochia:: Small Feeding Type:: breast feeding Pain well managed with medication Review of Systems Denies fevers, chills, n/v, ESCUDERO, CP, SOB Physical Exam Constitutional WD/WN, vitals as above no acute distress Respiratory normal respiratory effort, lungs clear to auscultation Cardiovascular RRR, no murmur, no edema Gastrointestinal (Abdomen) Percussion/Palpation: abdomen soft; abdomen nontender fundus firm at umbilicus and NT Musculoskeletal BLE symmetric, nonerythematous, nontender Results & Data ([facility]) Vital Signs (Past 12 Hours) Vital Signs Temp Pulse Resp BP Pulse Ox 01/26/22 04:00 98.8 F 84 20 131/78 99
[2022-01-26] MEDS: DOCUSATE SODIUM 100 MG CAP PO SCH (08:12)
[2022-01-26] MEDS: IBUPROFEN 600 MG TAB PO PRN (08:13)
[2022-01-26] MEDS: PRENATAL VITAMIN 1 TAB PO SCH (08:13)
== END 2022-01-26 14:17 | disposition home or self-care (01) | DRG 807 ==
LOC: 4S1 07:59 → 4E2 22:56

== ENCOUNTER 2024-12-11 16:15 | Inpatient (IN) ==
[2024-12-11 17:04] LABS: Basophils # (auto) 0.03 K/uL (0.00-0.20); Basophils % (auto) 0.4 %; Eosinophils # (auto) 0.13 K/uL (0.00-0.50); Eosinophils % (auto) 1.6 %; Hematocrit (blood only) 36.3 % (37.0-47.0); Hemoglobin 11.7 g/dl (12.0-16.0); Immature Granulocytes # (auto) 0.02 K/uL (0.01-0.20); Immature Granulocytes % (auto) 0.2 %; Lymphocytes # (auto) 1.87 K/uL (1.20-3.40); Lymphocytes % (auto) 23.3 %; Mean Corpuscular Hemoglobin 24.5 pg (25.0-34.0); Mean Corpuscular Hgb Conc 32.2 g/dL (32.0-36.0); Mean Corpuscular Volume 75.9 fL (80.0-100.0); Monocytes # (auto) 0.59 K/uL (0.11-0.59); Monocytes % (auto) 7.4 %; Neutrophils # (auto) 5.37 K/uL (1.40-6.50); Neutrophils % (auto) 67.1 %; Platelet Count 240 K/uL (130-400); RDW Coefficient of Variation 15.4 % (11.5-14.5); RDW Standard Deviation 42.2 fL (36.4-46.3); Red Blood Count 4.78 M/uL (4.20-5.40); White Blood Count 8.01 K/ul (4.8-10.8)
--- NOTE | 2024-12-11 17:22 | XRay Report ---
Chest radiograph, one view History: Chest pain Comparison: 04/11/2024 Findings: Single AP view of the chest performed. No focal consolidation or pleural effusion. No pneumothorax. The cardiomediastinal silhouette is within normal limits. Normal pulmonary vascularity. No evidence for lymphadenopathy. No visualized bony or soft tissue abnormality. Impression: Normal chest radiograph Electronically signed by Keon Dempsey 12-11-2024 5:17 PM
[2024-12-11 17:23] LABS: Albumin Globulin Ratio 1.3 (0.9-2); Albumin Level 4.3 gm/dl (3.4-5.0); BUN Creatinine Ratio 9.5 (10-20); Bilirubin,Total 0.4 mg/dl (0.2-1.0); Calcium 9.5 mg/dl (8.6-10.3); Creatinine Clr Calc Pharmacy 155.5 ml/min; Globulin 3.3 gm/dl (2.5-4.0); Potassium 3.2 mmol/L (3.5-5.1); Total Protein 7.6 gm/dl (6.0-8.3)
--- NOTE | 2024-12-11 17:31 | Emergency Department Note ---
Impression & Plan ACS (acute coronary syndrome), Non-ST elevation MT (NSTEMI) ED Provider Note NAME: SHE MCKEON AGE: 34 SEX: F : 1990 ARRIVES VIA: Walk-In INFORMANT: Patient ED PROVIDER(S): Suleman Esqueda DO CHIEF COMPLAINT: Chest pain HPI: Patient is a 34-year-old female with a past medical history of obesity and migraines who presents to the ER for chest burning pain in the middle of her sternum. This started around 4 AM this morning. It is worse with eating and does not change with exertion. Denies any belly pain, nausea, vomiting or diarrhea. No dysuria, urgency or frequency. No arm or jaw pain. Patient denies diabetes, hypertension, hyperlipidemia, CAD, history of sudden at a young age, and smoking. Patient denies swelling of calves, recent trips, history of immobilization or recent surgery, prior history of DVT, hemoptysis, history of malignancy, history of smoking, or control/estrogen use. ADDITIONAL HISTORY OBTAINED: Per HPI Chronic Medical/Social Conditions Affecting Care: Per HPI PAST MEDICAL HISTORY:See Below PAST SURGICAL HISTORY:See Below FAMILY HISTORY:See Below SOCIAL HISTORY:See Below HOME MEDICATIONS:See Below ALLERGIES:See Below VITALS:See Below PHYSICAL EXAMINATION: GENERAL: Sitting up in bed, alert, well appearing, well nourished, no distress, non-toxic EYE EXAM: normal conjunctiva. OROPHARYNX: no exudate, no erythema, lips, buccal mucosa, and tongue normal and mucous membranes are moist NECK: supple, no nuchal rigidity, no adenopathy, non-tender LUNGS: Clear to auscultation. Normal chest wall mechanics HEART: no murmurs, S1 normal and S2 normal ABDOMEN: abdomen soft, non-tender, normo-active bowel sounds, no masses, no rebound or guarding. BACK: Back is symmetrical on inspection and there is no deformity, no midline tenderness, no CVA tenderness. SKIN: no rashes and no bruising UPPER EXTREMITIES: upper extremities are grossly normal. Radial pulses are equal bilateral LOWER EXTREMITIES: No pitting edema. Calves are equal bilateral NEURO EXAM: Normal sensorium, cranial nerves II-XII grossly intact, normal speech, no gross weakness of arms, no gross weakness of legs. MEDICAL DECISION MAKING: Patient is a 34-year-old female who presents ER for the above-stated complaint. IV was established and blood work was obtained. Labs show no significant leukocytosis. BMP with mild anemia 11.6. INR unremarkable. BMP with hypokalemia 3.2. LFTs and bilirubin were unremarkable. Initial troponin resulted at 600. Patient was initially seen in the waiting room and due to lack of beds remained until troponin resulted and was eventually placed in the bed. At this time patient was taken emergently to CT angio which was negative for dissection and PE. We did call [facility] several times in order to make this read a priority. Following the results I discussed with Dr. Daly who recommended heart alert. I did discuss the case with Dr. Murillo patient was taken to the Neuroscience Director Na. Patient had received heparin bolus and drip. Patient was given aspirin and nitro in combination with a heparin drip and bolus while in the ER. Consults/Care Managements Discussions: Per [facility] Triage Nursing notes reviewed. Limited review of prior medical records performed Vital Signs: reviewed and remarkable for HTN Differential diagnosis: Cardiac ischemia, aortic dissection, pulmonary embolism, pneumothorax, pneumonia, pericarditis, myocarditis, esophageal rupture, GERD, cholecystitis, pancreatitis, musculoskeletal, as well as other pathologies. ER treatment provided: See below Diagnostics interpreted by me include EKG and cardiac monitoring as listed below: -Cardiac Monitoring: An order was placed for continuous cardiac monitoring. The monitor shows a rate of 70 with sinus rhythm. -ECG: Sinus rhythm rate of 66 Left axis T wave inversion in the inferior leads and lateral leads QTc 404 No significant change from November 2022 -Laboratory studies:Interpreted by me as stated above in MDM and shown below. Imaging studies: Xrays: As interpreted by me: Portable AP upright 1 view of the chest shows no focal infiltrate CTs show: CT angio the chest was negative per radiology Procedures:none Critical Care: I have personally spent 75 minutes of critical care time in the direct management of this patient. This includes bedside care, interpretation of diagnostic studies, and testing, discussion with consultants, patient, and family members, and other required patient management activities. This 75 minutes is in excess of all separately billable procedures. Past Med/Surg History Problem List (Updated 12/11/24 @ 23:12 by Jose David Murillo MD, PhD) Hypertensive urgency Obesity Stented coronary artery ACS (acute coronary syndrome) Hypokalemia Gestational diabetes mellitus (GDM) affecting , antepartum Obesity affecting , antepartum Morbid obesity Migraine headache (Acute) Medical History History of chicken pox History of spontaneous History of chlamydia infection Miscarriage Surgical History H/O oral surgery wisdom teeth removed 2011 Status post laparoscopic cholecystectomy 2014 Family History Mother Stroke Diabetes Glaucoma Hypertension Grandfather (Maternal) Stroke Diabetes Hypertension Myocardial infarction Prostate cancer Colorectal cancer Grandmother (Maternal) Diabetes Glaucoma Hypertension Myocardial infarction Father Hypertension Denies family history of Ovarian cancer Breast cancer Social History Smoking Status: Never smoker Do You Dip or Chew Tobacco: No; Hx Alcohol Use: No Hx Substance Use: No Preferred Language: Icelandic Communication Ability: Effective Web Assistant Required: No Beliefs That Will Affect Care: None marital status: marital status details: Edgar Mckeon [phone]) [phone] Current Living Situation: Spouse Current Living Situation Comment: lives with spouse, 3 children, no pets current occupational status: employed and student current occupation: student [employer] Feels Safe at Home: Yes Assistive Devices: None Allergies Allergies Allergy/AdvReac Type Severity Reaction Status Date / Time cat dander Allergy Intermediate PUFFY Verified 12/25/22 12:27 EYES, ITCHY THROAT Home Meds Home Medications Medication Instructions Recorded Confirmed No Known Home Medications 12/11/24 12/11/24 Results & Data (ED) Vital Signs Vital Signs - 24 hr 12/11/24 16:21 12/11/24 18:40 12/11/24 18:44 Temperature 36.6 C Temperature Source Skin Pulse Rate 73 Pulse Rate [Apical] Pulse Rate from SpO2 Sensor Pulse Rhythm [Apical] Pulse Strength [Apical] Respiratory Rate 20 Respiratory Effort / Characteristics Respiratory Depth Respiratory Pattern Blood Pressure 186/111 H 160/99 H Blood Pressure [Left Arm] Blood Pressure Mean 136 104 Blood Pressure Mean [Left Arm] Blood Pressure Position [Left Arm] Pulse Oximetry 100 100 Oxygen Delivery Method Room Air Sepsis Recent Fever Within 48 Hours No Sepsis New/Unexplained Change in Mental Status N/A Sepsis Action Taken by Nursing No Action Required 12/11/24 18:44 12/11/24 18:44 12/11/24 18:45 Temperature Temperature Source Pulse Rate 70 Pulse Rate [Apical] 70 Pulse Rate from SpO2 Sensor Pulse Rhythm [Apical] Pulse Strength [Apical] Respiratory Rate 18 Respiratory Effort / Characteristics Non-Labored Spontaneous Respiratory Depth Normal Respiratory Pattern Regular Blood Pressure Blood Pressure [Left Arm] 160/99 H Blood Pressure Mean Blood Pressure Mean [Left Arm] 119 Blood Pressure Position [Left Arm] Lying Pulse Oximetry 100 100 100 Oxygen Delivery Method Room Air Room Air Room Air Sepsis Recent Fever Within 48 Hours Sepsis New/Unexplained Change in Mental Status Sepsis Action Taken by Nursing 12/11/24 18:54 12/11/24 18:56 12/11/24 18:56 Temperature Temperature Source Pulse Rate 69 Pulse Rate [Apical] Pulse Rate from SpO2 Sensor 68 Pulse Rhythm [Apical] Pulse Strength [Apical] Respiratory Rate 18 Respiratory Effort / Characteristics Respiratory Depth Respiratory Pattern Blood Pressure 157/104 H 157/104 H Blood Pressure [Left Arm] Blood Pressure Mean 136 136 Blood Pressure Mean [Left Arm] Blood Pressure Position [Left Arm] Pulse Oximetry 100 Oxygen Delivery Method Sepsis Recent Fever Within 48 Hours Sepsis New/Unexplained Change in Mental Status Sepsis Action Taken by Nursing 12/11/24 18:58 12/11/24 19:06 12/11/24 19:10 Temperature Temperature Source Pulse Rate 62 64 Pulse Rate [Apical] Pulse Rate from SpO2 Sensor Pulse Rhythm [Apical] Pulse Strength [Apical] Respiratory Rate 12 Respiratory Effort / Characteristics Respiratory Depth Respiratory Pattern Blood Pressure 152/100 H Blood Pressure [Left Arm] Blood Pressure Mean 122 Blood Pressure Mean [Left Arm] Blood Pressure Position [Left Arm] Pulse Oximetry Oxygen Delivery Method Sepsis Recent Fever Within 48 Hours Sepsis New/Unexplained Change in Mental Status Sepsis Action Taken by Nursing 12/11/24 19:11 12/11/24 19:12 12/11/24 19:15 Temperature Temperature Source Pulse Rate 67 Pulse Rate [Apical] 68 Pulse Rate from SpO2 Sensor 68 Pulse Rhythm [Apical] Irregular Pulse Strength [Apical] Normal Respiratory Rate 13 16 Respiratory Effort / Characteristics Non-Labored Spontaneous Respiratory Depth Normal Respiratory Pattern Regular Blood Pressure 147/103 H Blood Pressure [Left Arm] 152/100 H Blood Pressure Mean 117 Blood Pressure Mean [Left Arm] 117 Blood Pressure Position [Left Arm] Pulse Oximetry 100 100 Oxygen Delivery Method Room Air Sepsis Recent Fever Within 48 Hours Sepsis New/Unexplained Change in Mental Status Sepsis Action Taken by Nursing 12/11/24 19:15 12/11/24 19:15 12/11/24 19:20 Temperature Temperature Source Pulse Rate 67 Pulse Rate [Apical] Pulse Rate from SpO2 Sensor 66 Pulse Rhythm [Apical] Pulse Strength [Apical] Respiratory Rate 16 Respiratory Effort / Characteristics Respiratory Depth Respiratory Pattern Blood Pressure 147/103 H 147/97 H Blood Pressure [Left Arm] Blood Pressure Mean 117 108 Blood Pressure Mean [Left Arm] Blood Pressure Position [Left Arm] Pulse Oximetry 100 Oxygen Delivery Method Sepsis Recent Fever Within 48 Hours Sepsis New/Unexplained Change in Mental Status Sepsis Action Taken by Nursing 12/11/24 19:24 12/11/24 19:25 12/11/24 19:25 Temperature Temperature Source Pulse Rate 67 Pulse Rate [Apical] Pulse Rate from SpO2 Sensor 67 Pulse Rhythm [Apical] Pulse Strength [Apical] Respiratory Rate 14 Respiratory Effort / Characteristics Respiratory Depth Respiratory Pattern Blood Pressure 151/96 H 151/96 H Blood Pressure [Left Arm] Blood Pressure Mean 129 129 Blood Pressure Mean [Left Arm] Blood Pressure Position [Left Arm] Pulse Oximetry 99 Oxygen Delivery Method Sepsis Recent Fever Within 48 Hours Sepsis New/Unexplained Change in Mental Status Sepsis Action Taken by Nursing 12/11/24 19:30 12/11/24 19:30 12/11/24 19:30 Temperature Temperature Source Pulse Rate Pulse Rate [Apical] Pulse Rate from SpO2 Sensor Pulse Rhythm [Apical] Pulse Strength [Apical] Respiratory Rate Respiratory Effort / Characteristics Respiratory Depth Respiratory Pattern Blood Pressure 148/90 H 148/90 H 148/90 H Blood Pressure [Left Arm] Blood Pressure Mean 111 111 111 Blood Pressure Mean [Left Arm] Blood Pressure Position [Left Arm] Pulse Oximetry Oxygen Delivery Method Sepsis Recent Fever Within 48 Hours Sepsis New/Unexplained Change in Mental Status Sepsis Action Taken by Nursing 12/11/24 19:39 12/11/24 19:40 12/11/24 19:45 Temperature Temperature Source Pulse Rate 65 Pulse Rate [Apical] Pulse Rate from SpO2 Sensor 66 Pulse Rhythm [Apical] Pulse Strength [Apical] Respiratory Rate 15 Respiratory Effort / Characteristics Respiratory Depth Respiratory Pattern Blood Pressure 139/95 141/85 H Blood Pressure [Left Arm] Blood Pressure Mean 117 97 Blood Pressure Mean [Left Arm] Blood Pressure Position [Left Arm] Pulse Oximetry 100 Oxygen Delivery Method Sepsis Recent Fever Within 48 Hours Sepsis New/Unexplained Change in Mental Status Sepsis Action Taken by Nursing 12/11/24 19:45 12/11/24 19:48 12/11/24 19:50 Temperature Temperature Source Pulse Rate 67 71 Pulse Rate [Apical] Pulse Rate from SpO2 Sensor 68 70 Pulse Rhythm [Apical] Pulse Strength [Apical] Respiratory Rate 13 14 Respiratory Effort / Characteristics Respiratory Depth Respiratory Pattern Blood Pressure 138/90 Blood Pressure [Left Arm] Blood Pressure Mean 96 Blood Pressure Mean [Left Arm] Blood Pressure Position [Left Arm] Pulse Oximetry 99 100 Oxygen Delivery Method Sepsis Recent Fever Within 48 Hours Sepsis New/Unexplained Change in Mental Status Sepsis Action Taken by Nursing 12/11/24 20:00 12/11/24 20:00 Temperature Temperature Source Pulse Rate 67 Pulse Rate [Apical] Pulse Rate from SpO2 Sensor 69 Pulse Rhythm [Apical] Pulse Strength [Apical] Respiratory Rate 28 H Respiratory Effort / Characteristics Respiratory Depth Respiratory Pattern Blood Pressure 139/92 Blood Pressure [Left Arm] Blood Pressure Mean 118 Blood Pressure Mean [Left Arm] Blood Pressure Position [Left Arm] Pulse Oximetry 100 Oxygen Delivery Method Sepsis Recent Fever Within 48 Hours Sepsis New/Unexplained Change in Mental Status Sepsis Action Taken by Nursing Laboratory Data 12/11/24 23:02 12/11/24 16:46 Lab Results 12/11/24 12/11/24 Range/Units 16:46 19:11 WBC 8.01 (4.8-10.8) K/ul RBC 4.78 (4.20-5.40) M/uL Hgb 11.7 L (12.0-16.0) g/dl Hct 36.3 L (37.0-47.0) % MCV 75.9 L (80.0-100.0) fL MCH 24.5 L (25.0-34.0) pg MCHC 32.2 (32.0-36.0) g/dL RDW Std Deviation 42.2 (36.4-46.3) fL RDW Coeff of Nir 15.4 H (11.5-14.5) % Plt Count 240 (130-400) K/uL MPV 11.0 (9.4-12.4) fL Immature Gran % (Auto) 0.2 % Neut % (Auto) 67.1 % Lymph % (Auto) 23.3 % Williamson % (Auto) 7.4 % Eos % (Auto) 1.6 % Baso % (Auto) 0.4 % Neut # (Auto) 5.37 (1.40-6.50) K/uL Lymph # (Auto) 1.87 (1.20-3.40) K/uL Williamson # (Auto) 0.59 (0.11-0.59) K/uL Eos # (Auto) 0.13 (0.00-0.50) K/uL Baso # (Auto) 0.03 (0.00-0.20) K/uL Immature Gran # (Auto) 0.02 (0.01-0.20) K/uL PT Cancelled 11.2 INR Cancelled 1.0 APTT Cancelled 29 PTT Ratio Cancelled 1.1 Sodium 138 (136-145) mmol/L Potassium 3.2 L (3.5-5.1) mmol/L Chloride 104 (98-107) mmol/L Carbon Dioxide 27 (21-32) mmol/L Anion Gap 7 (3-11) BUN 6 (6-23) mg/dl Creatinine 0.63 (0.6-1.2) mg/dl Est Cr Clr Drug Dosing 155.5 ml/min eGFR 118.57 BUN/Creatinine Ratio 9.5 L (10-20) Glucose 99 (70-99(Fasting)) mg/dl Calcium 9.5 (8.6-10.3) mg/dl Magnesium 1.7 (1.7-2.4) mg/dl Total Bilirubin 0.4 (0.2-1.0) mg/dl AST 25 (13-39) U/L ALT 12 (7-52) U/L Alkaline Phosphatase 63 (34-104) U/L Troponin I High Sens 618.9 H* 778.5 H* D (0-14) pg/ml Total Protein 7.6 (6.0-8.3) gm/dl Albumin 4.3 (3.4-5.0) gm/dl Globulin 3.3 (2.5-4.0) gm/dl Albumin/Globulin Ratio 1.3 (0.9-2) Administered Medications Heparin Sodium/Dextrose (Heparin 81650 Unit/500 Ml D5w) 25,000 units in 500 mls @ 19 mls/hr IV .Q24H ON LICENSE OF [facility]; Protocol Stop: 01/10/25 20:14 Last Titration: 12/11/24 23:04 Dose: 950 units/hr, 19 mls/hr Documented By: NAVEED Co-signed By: PETER Admin: 12/11/24 20:01 Dose: 950 units/hr, 19 mls/hr Documented By: AMPARO Co-signed By: DAVIDE Discontinued Medications Aspirin (Aspirin Chew 324 Mg) 324 mg PO NOW STA Stop: 12/11/24 18:30 Last Admin: 12/11/24 18:42 Dose: 324 mg Documented By: JADON Fentanyl Citrate (Fentanyl Citrate Pf 100 Mcg/2 Ml Vial) Confirm Administered Dose 100 mcg .ROUTE .STK-MED ONE Stop: 12/11/24 20:11 Last Admin: 12/11/24 22:11 Dose: 100 mcg Documented By: KAVYA Fentanyl Citrate (Fentanyl Citrate Pf 100 Mcg/2 Ml Vial) Confirm Administered Dose 100 mcg .ROUTE .STK-MED ONE Stop: 12/11/24 20:58 Last Increment: 12/11/24 22:14 Dose: 25 mcg Documented By: KAVYA Heparin Sodium (Porcine) (Heparin Sod (Porcine) 1000 Unit/Ml) 1 units IV NOW ONE Stop: 12/11/24 20:04 Last Admin: 12/11/24 20:00 Dose: 4,000 units Documented By: AMPARO Co-signed By: DAVIDE Heparin Sodium (Porcine) (Heparin (Porcine) 1000 Unit/Ml 10 Ml (Neuroscience Director Na Use Only)) Confirm Administered Dose 10,000 units .ROUTE .STK-MED ONE Stop: 12/11/24 20:11 Last Admin: 12/11/24 22:13 Dose: 10,500 units Documented By: KAVYA Heparin Sodium/Dextrose (Heparin Iv Adult Wt-Based Low-Dose W/ Initial Bolus Protocol) 1 each IV NOW STA; Protocol Stop: 12/11/24 19:49 Last Admin: 12/11/24 20:02 Dose: 1 each Documented By: AMPARO Heparin Sodium/Sodium Chloride (Heparin In Nss Infusion 1000 Unit/500 Ml (2 U/Ml) Bag) Confirm Administered Dose 3,000 units IV .STK-MED ONE Stop: 12/11/24 20:11 Last Admin: 12/11/24 20:58 Dose: 3,000 units Documented By: KAVYA Ioversol (Optiray 320 125ml) 118 ml IV ONCE ONE Stop: 12/11/24 18:33 Last Admin: 12/11/24 18:32 Dose: 118 ml Documented By: ALAN Ioversol (Optiray 350) Confirm Administered Dose 1 ml .ROUTE .STK-MED ONE Stop: 12/11/24 20:11 Last Admin: 12/11/24 22:15 Dose: 295 ml Documented By: KAVYA Lidocaine HCl (Lidocaine 1% Local 20 Ml Vial) Confirm Administered Dose 1 ml .ROUTE .STK-MED ONE Stop: 12/11/24 20:50 Last Admin: 12/11/24 22:11 Dose: 1 ml Documented By: KAVYA Midazolam HCl (Midazolam Hcl 1 Mg/Ml 2ml Vial) Confirm Administered Dose 2 mg .ROUTE .STK-MED ONE Stop: 12/11/24 20:11 Last Admin: 12/11/24 20:59 Dose: 2 mg Documented By: KAVYA Midazolam HCl (Midazolam Hcl 1 Mg/Ml 2ml Vial) Confirm Administered Dose 2 mg .ROUTE .STK-MED ONE Stop: 12/11/24 20:41 Last Increment: 12/11/24 22:14 Dose: 1 mg Documented By: KAVYA Nicardipine HCl (Nicardipine 2,000 Mcg/20 Ml Syr) Confirm Administered Dose 2,000 mcg .ROUTE .STK-MED ONE Stop: 12/11/24 20:11 Last Admin: 12/11/24 20:59 Dose: 2,000 mcg Documented By: KAVYA Nitroglycerin (Nitroglycerin Sl 0.4 Mg/Tab Tab) 0.4 mg SL NOW STA Stop: 12/11/24 18:49 Last Admin: 12/11/24 18:55 Dose: 0.4 mg Documented By: AMPARO Nitroglycerin (Nitroglycerin Sl 0.4 Mg/Tab Tab) 0.4 mg SL ONCE ONE Stop: 12/11/24 19:14 Last Admin: 12/11/24 19:13 Dose: 0.4 mg Documented By: TERRELL Nitroglycerin (Nitroglycerin Sl 0.4 Mg/Tab Tab) 0.4 mg SL NOW STA Stop: 12/11/24 19:34 Last Admin: 12/11/24 19:35 Dose: 0.4 mg Documented By: AMPARO Nitroglycerin/Dextrose (Nitroglycerin/D5w 100mcg/Ml 20ml Syr) Confirm Administered Dose 2,000 mcg .ROUTE .STK-MED ONE Stop: 12/11/24 20:11 Last Admin: 12/11/24 20:59 Dose: 2,000 mcg Documented By: AAF Imaging Data Radiologist's Impression: Chest X-Ray 12/11/24 16:26 Chest radiograph, one view History: Chest pain Comparison: 04/11/2024 Findings: Single AP view of the chest performed. No focal consolidation or pleural effusion. No pneumothorax. The cardiomediastinal silhouette is within normal limits. Normal pulmonary vascularity. No evidence for lymphadenopathy. No visualized bony or soft tissue abnormality. Impression: Normal chest radiograph Electronically signed by Keon Dempsey 12-11-2024 5:17 PM Chest CTA 12/11/24 18:23 EXAM: CT angio chest PE protocol CLINICAL HISTORY: Trop 700 going to back. TECHNIQUE: Contiguous 3.[address] angiographic images of the chest were acquired with the administration of intravenous contrast. Coronal and sagittal reconstructions were obtained. 118 cc opti 320 was administered for post-contrast images. One of these 3D techniques was utilized: Maximum Intensity Pixel (MIP), 3D Reconstructed Images, Volume Rendered Images, Surface Shaded Rendering. One of the following dose reduction techniques were utilized for this exam: Automated exposure control, adjustment of the mA and/or kV according to patient size, and use of iterative reconstruction. CTDI: 40.1 mGy. DLP: 889.38 mGy-cm. COMPARISON: CT dated 04/11/2024. FINDINGS: Aorta: The thoracic aorta is normal in caliber. No evidence of aneurysm, dissection, or significant atherosclerotic changes. Aortic arch and descending thoracic aorta are unremarkable. Pulmonary Arteries: Pulmonary arteries are normal in size and opacification. No evidence of pulmonary embolism. No stenosis or filling defects. Superior Vena Cava (SVC) and Inferior Vena Cava (IVC): Normal opacification and caliber. No evidence of thrombus or obstruction. Coronary Arteries: Coronary arteries are well-opacified. No significant stenosis or atherosclerotic changes. Mediastinum: No mediastinal mass or lymphadenopathy. Normal appearance of the thymus. Heart: Normal size and morphology of the heart. No pericardial effusion. Lungs: 5 mm calcified pulmonary nodule is seen in the right lower lung lobe image 32. No evidence of consolidation or masses. No pleural effusion or thickening. Bones: No fractures or lytic/sclerotic lesions of the visualized bony structures. Normal alignment and bone density. Soft Tissues: Normal appearance of the visualized soft tissues. No abnormal masses or fluid collections. Cholecystectomy Seth. IMPRESSION: 1. No evidence of pulmonary embolism or other significant vascular abnormality. 2. Right lower lobe calcified pulmonary nodule likely granulomatous. 3. Cholecystectomy. Electronically signed by Serjio Slater 12-11-2024 7:36 PM Discharge Plan Visit Data Chief Complaint: Chest Pain Stated Complaint: CHEST PAIN ED Provider: Suleman Esqueda Patient Disposition: Admitted As Inpatient Discharge Instructions Interventions: ED Discharge Assessment Last Done: 12/11/24 20:25
[2024-12-11 17:49] LABS: Troponin I High Sensitivity 618.9 pg/ml (0-14)
[2024-12-11] MEDS: OPTIRAY 320 125ml IV ONE (18:32)
[2024-12-11] MEDS: ASPIRIN CHEW 324 MG PO STA (18:42)
[2024-12-11] MEDS: NITROGLYCERIN SL 0.4 MG/TAB TAB SL STA ×2 (18:55→19:35)
[2024-12-11] MEDS: NITROGLYCERIN SL 0.4 MG/TAB TAB SL ONE (19:13)
--- NOTE | 2024-12-11 19:37 | CT Scan Report ---
EXAM: CT angio chest PE protocol CLINICAL HISTORY: Trop 700 going to back. TECHNIQUE: Contiguous 3.[address] angiographic images of the chest were acquired with the administration of intravenous contrast. Coronal and sagittal reconstructions were obtained. 118 cc opti 320 was administered for post-contrast images. One of these 3D techniques was utilized: Maximum Intensity Pixel (MIP), 3D Reconstructed Images, Volume Rendered Images, Surface Shaded Rendering. One of the following dose reduction techniques were utilized for this exam: Automated exposure control, adjustment of the mA and/or kV according to patient size, and use of iterative reconstruction. CTDI: 40.1 mGy. DLP: 889.38 mGy-cm. COMPARISON: CT dated 04/11/2024. FINDINGS: Aorta: The thoracic aorta is normal in caliber. No evidence of aneurysm, dissection, or significant atherosclerotic changes. Aortic arch and descending thoracic aorta are unremarkable. Pulmonary Arteries: Pulmonary arteries are normal in size and opacification. No evidence of pulmonary embolism. No stenosis or filling defects. Superior Vena Cava (SVC) and Inferior Vena Cava (IVC): Normal opacification and caliber. No evidence of thrombus or obstruction. Coronary Arteries: Coronary arteries are well-opacified. No significant stenosis or atherosclerotic changes. Mediastinum: No mediastinal mass or lymphadenopathy. Normal appearance of the thymus. Heart: Normal size and morphology of the heart. No pericardial effusion. Lungs: 5 mm calcified pulmonary nodule is seen in the right lower lung lobe image 32. No evidence of consolidation or masses. No pleural effusion or thickening. Bones: No fractures or lytic/sclerotic lesions of the visualized bony structures. Normal alignment and bone density. Soft Tissues: Normal appearance of the visualized soft tissues. No abnormal masses or fluid collections. Cholecystectomy Seth. IMPRESSION: 1. No evidence of pulmonary embolism or other significant vascular abnormality. 2. Right lower lobe calcified pulmonary nodule likely granulomatous. 3. Cholecystectomy. Electronically signed by Serjio Slater 12-11-2024 7:36 PM
[2024-12-11 19:58] LABS: Partial Thromboplastin Ratio 1.1; Partial Thromboplastin Time 29 Seconds (21-31); Prothrombin Time 11.2 Seconds (9.0-12.0)
[2024-12-11] MEDS: HEPARIN SOD (PORCINE) 1000 UNIT/ML IV ONE (20:00)
[2024-12-11] MEDS: HEPARIN 25000 UNIT/500 ML D5W 25,000 UNITS/500 ML BAG IV SCH (20:01)
[2024-12-11] MEDS: Heparin IV Adult Wt-Based Low-Dose w/ INITIAL Bolus Protocol IV STA (20:02)
--- NOTE | 2024-12-11 20:17 | History & Physical Report ---
Date of Service December 11, 2024 Assessment & Plan (1) ACS (acute coronary syndrome): (2) Hypokalemia: Plan 34-year-old female with history of migraine headache and obesity presenting for chest pain starting at 0400 the day of arrival. ED evaluation reveals no leukocytosis, H&H 11.7/36.3; PT/INR WNL; CMP potassium 3.2, BUN/creatinine ratio 9.5; troponin 778.5, pending repeat; CXR WNL; chest CTA without evidence of PE, but does reveal RLL calcified pulmonary nodule likely granulomatous and evidence of cholecystectomy; initial EKG sinus rhythm first-degree AV block and LAD as well as nonspecific ST/T wave abnormality (1635) and second EKG sinus rhythm first-degree AV block and LAD, LVH with repolarization abnormality, but appearing to have T wave abnormalities throughout (1841). Heart alert was called. Patient placed on heparin drip and received nitroglycerin and aspirin in ED. #ACS Chest pain starting at 0400 awakening her from sleep, worsening around 1400 and radiating to back; sharp and stabbing pain that comes and goes, approx. 15 min apart at time of arrival; no h/o cardiac disease or recent URI/illness. No smoking history. Hypertensive on arrival but no know dx of HTN aside from this reading. - CBC w/o leukocytosis, H/H 11.7/36.3; PT/INR WNL; CMP K 3.2; Troponin 778.5, pending repeat - EKG sinus rhythm with 1st degree block/LAD/LVH/T wave inversion more evident in inferior leads, nonspecific ST wave abnormality evident in anterolateral leads - Troponin 778.5, pending repeat - CXR WNL; Chest CTA w/o acute findings - Echo pending - Lipid panel pending, A1c pending - NTG prn chest pain - Heparin drip- continue x 48hr - Code heart alert called- rd lab technician -- 3 CESIA placed; continue ASA 81mg daily + Brilinta 90mg BID x 1-2 years - Cardio consulted- appreciate input + recs --> metoprolol tartrate, amlodipine, atorvastatin and above #Hypokalemia Asymptomatic currently. ICU to manage lytes - K 3.2; Mg 1.7 - Aim to keep K > 4 - 80 mEq KCl - BMP am Dispo: Admit, ICU VTE Prophylaxis: Heparin This document was dictated utilizing [employer]. Please excuse any grammatical errors that may be secondary to use of this software. Admission and Anticipated Discharge Date Admission Date: 12/11/2024 History of Present Illness Chief Complaint: Chest pain Primary Care Provider: Fatemeh Blake MD 34-year-old female with history of migraine headache and obesity presenting for chest pain starting at 0400 the day of arrival. Patient states that 0400 the day of arrival, she was awoken from sleep for onset of central and sharp chest pain. States that the pain lasted approximately 1 hour and then was alleviated some. Patient reports that throughout the entirety of the day, the pain continued to come and go, was sharp in nature, and was in the central chest but would feel as though it was shooting to the back during episodes of pain. Episodes lasted approximately 1 hour and then would resolve for approximately an hour. Throughout the course the day, around 1400, patient states that the pain became more severe rating it a 7 out of 10 on the pain scale and then at 1500 the pain became more severe and patient decided that she needed to be evaluated. Patient states that she does have some SOB with increased breath and when the pain is most severe, but denying palpitations, abdominal pain, N/V, or diaphoresis. Patient has no significant history and states that she has never had this happen before. Family history is significant for maternal grandfather who had coronary event, grandparent with hypertension, and diabetes within the family. Patient denies illicit drug use. No recent illness or URI symptoms. Patient states that she has had increased stress surrounding life events in her family. No history of smoking or tobacco use. Overall denying abdominal pain, N/V/D/C, LUTS, numbness/tingling, weakness, or fever/chills. ED evaluation reveals no leukocytosis, H&H 11.7/36.3; PT/INR WNL; CMP potassium 3.2, BUN/creatinine ratio 9.5; troponin 778.5, pending repeat; CXR WNL; chest CTA without evidence of PE, but does reveal RLL calcified pulmonary nodule likely granulomatous and evidence of cholecystectomy; initial EKG sinus rhythm first- degree AV block and LAD as well as nonspecific ST/T wave abnormality (1635) and second EKG sinus rhythm first-degree AV block and LAD, LVH with repolarization abnormality, but appearing to have T wave abnormalities throughout (184). Heart alert was called. Patient placed on heparin drip and received nitroglycerin and aspirin in ED. Please see Dr. Woods's attestation for adjustments/additions to treatment plan. Allergies Allergy/AdvReac Type Severity Reaction Status Date / Time cat dander Allergy Intermediate PUFFY Verified 12/25/22 12:27 EYES, ITCHY THROAT Home Medications Medication Instructions Recorded Confirmed Type No Known Home Medications 12/11/24 12/11/24 History Past Med/Surg History Problem List (Updated 12/11/24 @ 23:12 by Jose David Murillo MD, PhD) Hypertensive urgency Obesity Stented coronary artery ACS (acute coronary syndrome) Hypokalemia Gestational diabetes mellitus (GDM) affecting , antepartum Obesity affecting , antepartum Morbid obesity Migraine headache (Acute) Medical History History of chicken pox History of spontaneous History of chlamydia infection Miscarriage Surgical History H/O oral surgery wisdom teeth removed 2011 Status post laparoscopic cholecystectomy 2013 Family History Mother Stroke Diabetes Glaucoma Hypertension Grandfather (Maternal) Stroke Diabetes Hypertension Myocardial infarction Prostate cancer Colorectal cancer Grandmother (Maternal) Diabetes Glaucoma Hypertension Myocardial infarction Father Hypertension Denies family history of Ovarian cancer Breast cancer Social History Smoking Status: Never smoker Do You Dip or Chew Tobacco: No; Hx Alcohol Use: No Hx Substance Use: No Preferred Language: Filipino Communication Ability: Effective Marketing Communications Manager Required: No Beliefs That Will Affect Care: None marital status: marital status details: Edgar Mckeon [phone] Current Living Situation: Spouse and Family Current Living Situation Comment: lives with spouse, 3 children, no pets current occupational status: employed and student 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 [facility] Feels Safe at Home: Yes Safety Concerns: Feels Safe At This Time Assistive Devices: Glasses Review of Systems Review of Systems: All systems reviewed & are unremarkable except as noted in Subjective Physical Exam Physical Exam: General: No acute distress Skin: Warm and dry Head: Normocephalic, atraumatic Eyes: PERRL, conjunctivae clear, sclera non-icteric; wearing glasses ENT: External ear and ear canal without swelling; nose atraumatic; good dentition, tongue normal appearance, pharynx normal Neck: Supple, no LAD Cardio: RRR, no M/G/R, S1 and S2 normal Resp: No respiratory distress, Lungs CTA in all lobes bilaterally, no wheezes, rales, or rhonchi Abdomen: Soft, symmetric, nontender; No masses or hepatosplenomegaly; Bowel sounds normoactive MSK: No deformities; pulses palpable and equal; no edema. Neuro: Awake, alert; Sensation intact bilaterally; CN grossly intact Psych: Anxious. Appropriate mood and affect; good judgement and insight. present in room at time of visit. Results & Data Results & Data Vital Signs (Past 12 Hours) Vital Signs Temp Pulse Pulse Resp BP BP Pulse Ox 12/11/24 20:00 139/92 12/11/24 20:00 67 28 H 100 12/11/24 19:50 138/90 12/11/24 19:48 71 14 100 12/11/24 19:45 67 13 99 12/11/24 19:45 141/85 H 12/11/24 19:40 139/95 12/11/24 19:39 65 15 100 12/11/24 19:30 148/90 H 12/11/24 19:30 148/90 H 12/11/24 19:30 148/90 H 12/11/24 19:25 151/96 H 12/11/24 19:25 151/96 H 12/11/24 19:24 67 14 99 12/11/24 19:20 147/97 H 12/11/24 19:15 67 16 100 12/11/24 19:15 147/103 H 12/11/24 19:15 147/103 H 12/11/24 19:12 67 16 100 12/11/24 19:11 68 13 152/100 H 100 12/11/24 19:10 152/100 H 12/11/24 19:06 64 12 12/11/24 18:58 62 12/11/24 18:56 157/104 H 12/11/24 18:56 157/104 H 12/11/24 18:54 69 18 100 12/11/24 18:45 100 12/11/24 18:44 70 18 160/99 H 100 12/11/24 18:44 70 100 12/11/24 18:44 100 12/11/24 18:40 160/99 H 12/11/24 16:21 36.6 C 73 20 186/111 H 100 O2 Del Method 12/11/24 20:00 12/11/24 20:00 12/11/24 19:50 12/11/24 19:48 12/11/24 19:45 12/11/24 19:45 12/11/24 19:40 12/11/24 19:39 12/11/24 19:30 12/11/24 19:30 12/11/24 19:30 12/11/24 19:25 12/11/24 19:25 12/11/24 19:24 12/11/24 19:20 12/11/24 19:15 12/11/24 19:15 12/11/24 19:15 12/11/24 19:12 12/11/24 19:11 Room Air 12/11/24 19:10 12/11/24 19:06 12/11/24 18:58 12/11/24 18:56 12/11/24 18:56 12/11/24 18:54 12/11/24 18:45 Room Air 12/11/24 18:44 Room Air 12/11/24 18:44 Room Air 12/11/24 18:44 Room Air 12/11/24 18:40 12/11/24 16:21 Laboratory Results 12/11/24 12/11/24 19:11 16:46 WBC 8.01 RBC 4.78 Hgb 11.7 L Hct 36.3 L MCV 75.9 L MCH 24.5 L MCHC 32.2 RDW Std Deviation 42.2 RDW Coeff of Nir 15.4 H Plt Count 240 MPV 11.0 Immature Gran % (Auto) 0.2 Neut % (Auto) 67.1 Lymph % (Auto) 23.3 Ramsey % (Auto) 7.4 Eos % (Auto) 1.6 Baso % (Auto) 0.4 Neut # (Auto) 5.37 Lymph # (Auto) 1.87 Ramsey # (Auto) 0.59 Eos # (Auto) 0.13 Baso # (Auto) 0.03 Immature Gran # (Auto) 0.02 PT 11.2 Cancelled INR 1.0 Cancelled APTT 29 Cancelled PTT Ratio 1.1 Cancelled Sodium 138 Potassium 3.2 L Chloride 104 Carbon Dioxide 27 Anion Gap 7 BUN 6 Creatinine 0.63 Est Cr Clr Drug Dosing 155.5 eGFR 118.57 BUN/Creatinine Ratio 9.5 L Glucose 99 Calcium 9.5 Magnesium 1.7 Total Bilirubin 0.4 AST 25 ALT 12 Alkaline Phosphatase 63 Troponin I High Sens 778.5 H* D 618.9 H* Total Protein 7.6 Albumin 4.3 Globulin 3.3 Albumin/Globulin Ratio 1.3 Diagnostic Findings Chest X-Ray 12/11/24 16:26 Chest radiograph, one view History: Chest pain Comparison: 04/11/2024 Findings: Single AP view of the chest performed. No focal consolidation or pleural effusion. No pneumothorax. The cardiomediastinal silhouette is within normal limits. Normal pulmonary vascularity. No evidence for lymphadenopathy. No visualized bony or soft tissue abnormality. Impression: Normal chest radiograph Electronically signed by Keon Dempsey 12-11-2024 5:17 PM Chest CTA 12/11/24 18:23 EXAM: CT angio chest PE protocol CLINICAL HISTORY: Trop 700 going to back. TECHNIQUE: Contiguous 3.[address] angiographic images of the chest were acquired with the administration of intravenous contrast. Coronal and sagittal reconstructions were obtained. 118 cc opti 320 was administered for post-contrast images. One of these 3D techniques was utilized: Maximum Intensity Pixel (MIP), 3D Reconstructed Images, Volume Rendered Images, Surface Shaded Rendering. One of the following dose reduction techniques were utilized for this exam: Automated exposure control, adjustment of the mA and/or kV according to patient size, and use of iterative reconstruction. CTDI: 40.1 mGy. DLP: 889.38 mGy-cm. COMPARISON: CT dated 04/11/2024. FINDINGS: Aorta: The thoracic aorta is normal in caliber. No evidence of aneurysm, dissection, or significant atherosclerotic changes. Aortic arch and descending thoracic aorta are unremarkable. Pulmonary Arteries: Pulmonary arteries are normal in size and opacification. No evidence of pulmonary embolism. No stenosis or filling defects. Superior Vena Cava (SVC) and Inferior Vena Cava (IVC): Normal opacification and caliber. No evidence of thrombus or obstruction. Coronary Arteries: Coronary arteries are well-opacified. No significant stenosis or atherosclerotic changes. Mediastinum: No mediastinal mass or lymphadenopathy. Normal appearance of the thymus. Heart: Normal size and morphology of the heart. No pericardial effusion. Lungs: 5 mm calcified pulmonary nodule is seen in the right lower lung lobe image 32. No evidence of consolidation or masses. No pleural effusion or thickening. Bones: No fractures or lytic/sclerotic lesions of the visualized bony structures. Normal alignment and bone density. Soft Tissues: Normal appearance of the visualized soft tissues. No abnormal masses or fluid collections. Cholecystectomy Colony. IMPRESSION: 1. No evidence of pulmonary embolism or other significant vascular abnormality. 2. Right lower lobe calcified pulmonary nodule likely granulomatous. 3. Cholecystectomy. Electronically signed by Serjio Slater 12-11-2024 7:36 PM Medications Administered Aspirin 324 mg p.o. NTG 0.4 mg SL x 3 Heparin drip ECG Additional Comments: Initial EKG (1634) Sinus rhythm first-degree AV block, LAD, moderate voltage criteria LVH, nonspecific ST/T wave abnormality (T wave inversion more evident in inferior leads, nonspecific ST wave abnormality evident in anterolateral leads) 66 bpm, MS 212, QRS 96, QT/QTc 386/404, PRT 49/-38/-39 Second EKG (1840) Sinus rhythm first-degree AV block, LAD, LVH with repolarization abnormality 67 bpm, MS 220, QRS 96, QT/QTc 400/422, PRT 55/-38/-55 Code Status & VTE Plan Code Status Full VTE Prophylaxis Plan VTE Prophylaxis will be ordered: No Supervising Physician Co-Signing Physician Notes Patient seen and examined, chart reviewed, case discussed with LATOYA Jordan and I agree with the assessment plan as documented above. In brief, patient is a 34-year-old female with history of migraine, obesity presenting with chest pain that woke her from sleep at 0400 the day of admission. Patient with no history of hypertension, diabetes or tobacco use. No history of premature CAD in her family. EKG with some nonspecific changes, no overt ST elevations Initial troponin 778.5 On physical exam patient in discomfort but no acute distress + S1, S2, regular, no murmur/rub/gallops Lungs CTA anteriorly Abdomen soft, nontender, nondistended Extremities warm, well-perfused with no clubbing/cyanosis or edema Labs and images reviewed Assessment/[id number] female with no known significant cardiac risk factors aside from obesity presenting with substernal chest discomfort that woke her from sleep. Elevated troponin on initial labs. Code heart was activated and the patient was taken to the [facility]. Patient found to have 99% stenosis of circumflex. She had placement of 3 overlapping drug-eluting stents with mandaeism of flow. Per note from cardiology, question possible spontaneous coronary artery dissection rather than thrombotic process or plaque? Admit to medical ICU Continue heparin infusion Check lipid panel hemoglobin A1c Check 2D echo Potassium repletion Remainder as above PG Care Time/CCT Total # of Minutes Spent Total Time Spent with Patient: Total time spent is greater than 50% in coordination of care (as documented) at patient's floor/unit and/or counseling patient: Coding Level of Care Code 51353 INT INP/OBS CARE 3/75MIN Diagnoses ACS (acute coronary syndrome) I24.9 Hypokalemia E87.6
[2024-12-11 20:21] LABS: Magnesium 1.7 mg/dl (1.7-2.4)
--- NOTE | 2024-12-11 20:29 | Pre Anesthesia Assessment ---
Date of Service December 11, 2024 Pre Sedation Assessment Vital Signs Temp Pulse Pulse Resp BP BP Pulse Ox 12/11/24 20:00 139/92 12/11/24 20:00 67 28 H 100 12/11/24 19:50 138/90 12/11/24 19:48 71 14 100 12/11/24 19:45 67 13 99 12/11/24 19:45 141/85 H 12/11/24 19:40 139/95 12/11/24 19:39 65 15 100 12/11/24 19:30 148/90 H 12/11/24 19:30 148/90 H 12/11/24 19:30 148/90 H 12/11/24 19:25 151/96 H 12/11/24 19:25 151/96 H 12/11/24 19:24 67 14 99 12/11/24 19:20 147/97 H 12/11/24 19:15 67 16 100 12/11/24 19:15 147/103 H 12/11/24 19:15 147/103 H 12/11/24 19:12 67 16 100 12/11/24 19:11 68 13 152/100 H 100 12/11/24 19:10 152/100 H 12/11/24 19:06 64 12 12/11/24 18:58 62 12/11/24 18:56 157/104 H 12/11/24 18:56 157/104 H 12/11/24 18:54 69 18 100 12/11/24 18:45 100 12/11/24 18:44 70 18 160/99 H 100 12/11/24 18:44 70 100 12/11/24 18:44 100 12/11/24 18:40 160/99 H 12/11/24 16:21 36.6 C 73 20 186/111 H 100 O2 Del Method 12/11/24 20:00 12/11/24 20:00 12/11/24 19:50 12/11/24 19:48 12/11/24 19:45 12/11/24 19:45 12/11/24 19:40 12/11/24 19:39 12/11/24 19:30 12/11/24 19:30 12/11/24 19:30 12/11/24 19:25 12/11/24 19:25 12/11/24 19:24 12/11/24 19:20 12/11/24 19:15 12/11/24 19:15 12/11/24 19:15 12/11/24 19:12 12/11/24 19:11 Room Air 12/11/24 19:10 12/11/24 19:06 12/11/24 18:58 12/11/24 18:56 12/11/24 18:56 12/11/24 18:54 12/11/24 18:45 Room Air 12/11/24 18:44 Room Air 12/11/24 18:44 Room Air 12/11/24 18:44 Room Air 12/11/24 18:40 12/11/24 16:21 Cardiovascular RRR, no murmur, no edema Respiratory normal respiratory effort, lungs clear to auscultation Pre-Sedation Airway Assessment Smoking Status: Never smoker class 3 ASA 3 Notes The planned sedation has been discussed with the patient. Informed Consent was obtained. I have identified the patient, determined the appropriateness of sedation and have assessed the patient immediately prior to the procedure. All medicine(s) and interventions are by my order.
[2024-12-11] MEDS: niCARdipine 2,000 MCG/20 ML SYR ONE (20:59)
[2024-12-11] MEDS: NITROGLYCERIN/D5W 100MCG/ML 20ML SYR ONE (20:59)
[2024-12-11] MEDS: MIDAZOLAM HCL 1 MG/ML 2ML VIAL ONE ×2 (20:59→22:14)
[2024-12-11] MEDS: fentaNYL citrate PF 100 MCG/2 ML VIAL ONE ×2 (22:11→22:14)
[2024-12-11] MEDS: LIDOCAINE 1% LOCAL 20 ML VIAL ONE (22:11)
[2024-12-11] MEDS: HEPARIN (PORCINE) 1000 UNIT/ML 10 ML (CATH LAB USE ONLY) ONE (22:13)
[2024-12-11] MEDS: OPTIRAY 350 ONE (22:15)
[2024-12-11] MEDS ORDERED: ONDANSETRON INJ 2 MG/ML 2 ML VIAL IV PRN (22:35)
[2024-12-11] MEDS ORDERED: ATROPINE SULFATE 0.1 MG/ML 10ML SYR IV PRN (22:35)
--- NOTE | 2024-12-11 22:35 | Post Anesthesia Assessment ---
Date of Service December 11, 2024 Post Sedation Assessment Vital Signs Temp Pulse Pulse Resp BP BP Pulse Ox 12/11/24 20:00 139/92 12/11/24 20:00 67 28 H 100 12/11/24 19:50 138/90 12/11/24 19:48 71 14 100 12/11/24 19:45 67 13 99 12/11/24 19:45 141/85 H 12/11/24 19:40 139/95 12/11/24 19:39 65 15 100 12/11/24 19:30 148/90 H 12/11/24 19:30 148/90 H 12/11/24 19:30 148/90 H 12/11/24 19:25 151/96 H 12/11/24 19:25 151/96 H 12/11/24 19:24 67 14 99 12/11/24 19:20 147/97 H 12/11/24 19:15 67 16 100 12/11/24 19:15 147/103 H 12/11/24 19:15 147/103 H 12/11/24 19:12 67 16 100 12/11/24 19:11 68 13 152/100 H 100 12/11/24 19:10 152/100 H 12/11/24 19:06 64 12 12/11/24 18:58 62 12/11/24 18:56 157/104 H 12/11/24 18:56 157/104 H 12/11/24 18:54 69 18 100 12/11/24 18:45 100 12/11/24 18:44 70 18 160/99 H 100 12/11/24 18:44 70 100 12/11/24 18:44 100 12/11/24 18:40 160/99 H 12/11/24 16:21 36.6 C 73 20 186/111 H 100 O2 Del Method 12/11/24 20:00 12/11/24 20:00 12/11/24 19:50 12/11/24 19:48 12/11/24 19:45 12/11/24 19:45 12/11/24 19:40 12/11/24 19:39 12/11/24 19:30 12/11/24 19:30 12/11/24 19:30 12/11/24 19:25 12/11/24 19:25 12/11/24 19:24 12/11/24 19:20 12/11/24 19:15 12/11/24 19:15 12/11/24 19:15 12/11/24 19:12 12/11/24 19:11 Room Air 12/11/24 19:10 12/11/24 19:06 12/11/24 18:58 12/11/24 18:56 12/11/24 18:56 12/11/24 18:54 12/11/24 18:45 Room Air 12/11/24 18:44 Room Air 12/11/24 18:44 Room Air 12/11/24 18:44 Room Air 12/11/24 18:40 12/11/24 16:21 Recovery Score Activity: Moves 4 extremities Respiration: Deep Breath/Cough Circulation: +/-20% PreAnes Value Consciousness: Fully Awake Oxygen Saturation: > 92% On Room Air Discharge Sedation Level of Care: Fast Track Phase II Post Sedation Plan On clinical assessment, the patient appears to have tolerated the sedation w ithout complications. Patient is recovering as anticipated. Patient will continue to be monitored by nursing and may be discharged when sedation discharge criteria are met per below protocol. Upon Completions of procedure up to 15 minutes continue every 5 minute vital signs and the P.A.R. score; then discharge to a Phase I or Fast Track to Phase II per the following guidelines: * Discharge Patient to appropriate Phase II area if PAR is 8 or greater or return to pre- procedure baseline. The post - procedure orders will be as directed. * If PAR score is less than 8 or not return to pre-procedure baseline then patient will follow Phase I monitoring till PAR is reached for Phase II. The Phase I may be done in procedure room or may call to secure a Phase I area. * If naloxone or flumazenil are used for reversal, hold in Phase I for continued monitoring from when last reversal dose was given for a minimum of 60 minutes or longer pending the nurse and/or physician discretion of patient condition before discharge to Phase II. Please call the Sedation Physician to re-evaluate and complete post-note for discharge to Phase II area. Do NOT discharge from procedure sedation or Phase 1 until post- sedation evaluation note is complete by procedure /sedation MD Sedation Discharge Instructions to be given to the patient at discharge to home. [facility] [place]odes (Charges) Indication for Procedure Indication for procedure: NSTEMI
[2024-12-11] MEDS ORDERED: hydrALAZINE HCL 20 MG/ML VIAL IV PRN (22:40)
--- NOTE | 2024-12-11 22:51 | Post Operative Brief Note ---
Cardiology Brief Post Op Date of Surgery December 11, 2024 Pre & Post Diagnosis Operation Date: 12/11/24 20:00 <No data on this case meets the specified criteria> Non-ST elevation RI Procedure Patient was shaved and prepped in a sterile fashion. Access via the right radial artery. Diagnostic coronary angiography performed demonstrating 99% occlusion of the distal circumflex OM branch. Attempted to have her undergo PCI but she had significant vasospasm and pain and could not tolerate a 6 Bulgarian guide catheter via this route. Therefore, we aborted further attempts from the radial artery and moved to the femoral artery access. Right groin was anesthetized and using the ultrasound for guidance we were eventually able to access the artery. We did use a long 6 Bulgarian sheath because of the depth of her femoral artery and concern for loss of arterial access. PCI was undertaken using a 6 Bulgarian EBU 3.5 guide catheter and a BMW universal guidewire which was positioned very distally in the OM branch. The lesion was predilated and then a stent was placed. There was noted to be some staining after predilatation but this was covered with the stent. There appeared to be some residual disease just after the branch point in the vessel and therefore a second short stent was used to cover the main vessel after the branch and with the stent overlapped with the previous stent. The guidewire was removed and angiography was performed. There now seem to be some abnormality in the vessel prior to the branch point. We decided to stent across this abnormality, the branch artery and have the distal part of the stent within the previously placed stent. Patient had no chest pain throughout. She was returned to heparin drip and given Brilinta p.o. She is now admitted to the ICU for further workup and management. Meteorology Instructor Jose David Murillo MD, PhD Catering And Events Manager [facility] Estimated Blood Loss 15 Findings Consistent with Post-Op Diagnosis Severe (99%) distal ramus/OM1 disease. ANN I flow after occlusion Successful PCI with implantation of 3 overlapped drug-eluting stents ANN-3 flow post PCI Proximal to the proximal stent edge of the vessel is dynamic with contraction. This seems accentuated with the stent in place compared to prior. In retrospect, given the patient's age, gender, and hypertension the severe lesion may have represented a spontaneous coronary dissection. There was no obvious thrombus and the stenosis was smooth. Also, after stenting the vessel proximal to the stent appears different and may represent contained dissection. I had considered IVUS analysis but was concerned about passing additional large equipment into the vessel particularly since she was hemodynamically stable and completely asymptomatic without EKG changes. Therefore, conservative decision to keep her on heparin for 48 hours, continue dual antiplatelet therapy, and then limit her activity for 2 weeks. If she has any clinical decline she will return to the [facility]. Anesthesia Type RN Sedation Complications none Disposition Disposition: Surgical ICU [facility] Cardiac Procedure Charge Indication for Procedure Indication for procedure: Non-ST elevation RI
--- NOTE | 2024-12-11 23:02 | Cardiology Consultation ---
Date of Consultation December 11, 2024 Assessment & Plan (1) ACS (acute coronary syndrome): This was an unusual presentation. She is very young and previously reported no hypertension. However, she is obese and clearly had very high blood pressure on arrival. The 99% stenosis did not seem to contain any thrombus and it was rather smooth in contour which is not typical for atherosclerotic plaque. I wonder if this actually represented a spontaneous coronary dissection since she is young, female, and hypertensive. We seem to be able to open the vessel well and she had good ANN flow downstream. My only concern is about the short segment of artery preceding the proximal edge of the stent. There was some bend and contraction in that artery prior to stenting but this seems exaggerated and I would worry that there may be some injury to the lumen or that in fact this may have been the origin of a spontaneous coronary dissection. In any case, at this point she does not have any chest pain and we will continue conservative medical approach so as not to further injure the vessel. Heparin will continue for 48 hours. After she is discharged we will limit her activity for 2 weeks. We definitely need to address her blood pressure and other risk factors. (2) Stented coronary artery: Patient now has 3 overlapped drug-eluting stents. She will be on dual antiplatelet therapy with aspirin 81 mg daily and Brilinta 90 mg p.o. twice daily for 1 to 2 years. For the next 2 days this will also overlap with heparin drip. We are starting her on guideline directed medical therapy for secondary prevention of coronary disease to include the low-dose aspirin, statin, beta- avelina, and I will use amlodipine rather than BROCK inhibitor or angiotensin receptor at this time. I ordered an echocardiogram which will also help us further determine her medical regimen and prognosis. She will remain in the ICU for at least 24 hours. (3) Hypertensive urgency: Blood pressure was very high and in particular that diastolic was very high. Her EKG is consistent with LVH and the echo will tell us if that is in fact present and what severity. That would be suggestive of longstanding elevated blood pressure of which she was unaware. She has been started on metoprolol tartrate and amlodipine. Going to avoid long-acting nitrate because of her chronic headaches. Can use hydralazine IV as needed to keep her systolic below 150 mmHg and we will likely add an angiotensin receptor avelina if needed. (4) Gestational diabetes mellitus (GDM) affecting , antepartum: Going to check hemoglobin A1c to see if she is now potentially diabetic. She has lost a lot of weight with the help of pharmacologic agents. Hopefully she does not have diabetes but if she does this will need to be treated appropriately. Related to this I have also ordered a fasting lipid panel. Starting her on atorvastatin 20 mg since I am not completely convinced that the stenosis was atherosclerotic. If her lipids are very abnormal we will have to uptitrate the dose. History of Present Illness Reason for Consultation: Chest pain, elevated troponin Attending Physician: Dulce Woods DO History of Present Illness 34-year-old morbidly obese -[place] female developed chest discomfort at around 4 AM. She says it radiated to her back and persisted all day. She decided to seek medical attention in the emergency department. Her first EKG was unremarkable. Demonstrated first-degree AV block and voltage criteria for LVH. Second EKG was similar although T waves were more inverted. Her first troponin was over 600 and a second troponin was over 700. I was then asked to see her urgently. She appeared very nervous and her blood pressure was elevated in the emergency department. In fact, on arrival to ER her blood pressure was 186/111 mmHg. She was sent for CT scan by the ER doctor and this excluded pulmonary embolism and aortic pathology. Therefore, I took her to the cardiac catheterization suite after discussing the risks, benefits, and alternatives. We did perform diagnostic coronary angiography via the right radial artery approach. This showed a tight lesion in the distal ramus/OM 1. We perform PCI with 3 overlapped drug-eluting stents with significant improvement in the stenosis. She does have some irregularity in the vessel prior to the stent which was more accentuated after stenting. She has been chest pain free and wit hout EKG changes since we initiated the catheterization and stenting. Her blood pressure also improved somewhat with medications. She is now admitted to the ICU for further workup and management. Patient denies history of diabetes but she apparently did have gestational diabetes. She has lost a significant amount of weight lately and was starting to increase her activity levels. She denied history of hypertension and was surprised to hear how high her blood pressure was when she came to the emergency department. She denied prior chest pain, heaviness, or tightness. She also denied syncope, near syncope, orthopnea, PND, racing heartbeat, palpitations, or edema. She was accompanied by her . Allergies Allergy/AdvReac Type Severity Reaction Status Date / Time cat dander Allergy Intermediate PUFFY Verified 12/25/22 12:27 EYES, ITCHY THROAT Home Medications Medication Instructions Recorded Confirmed Type No Known Home Medications 12/11/24 12/11/24 History Patient History Medical History History of chicken pox History of spontaneous History of chlamydia infection Miscarriage Surgical History H/O oral surgery wisdom teeth removed 2010 Status post laparoscopic cholecystectomy 2013 Family History Mother Stroke Diabetes Glaucoma Hypertension Grandfather (Maternal) Stroke Diabetes Hypertension Myocardial infarction Prostate cancer Colorectal cancer Grandmother (Maternal) Diabetes Glaucoma Hypertension Myocardial infarction Father Hypertension Denies family history of Ovarian cancer Breast cancer Social History Smoking Status: Never smoker Do You Dip or Chew Tobacco: No; Hx Alcohol Use: No Hx Substance Use: No Preferred Language: Korean Communication Ability: Effective 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 Beliefs That Will Affect Care: None marital status: marital status details: Edgar Mckeon (33) [phone] Current Living Situation: Spouse Current Living Situation Comment: lives with spouse, 3 children, no pets current occupational status: employed and student 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 No wheezing, rhonchi, or rales Cardiovascular: Regular rate and rhythm. Distant heart sounds. Do not appreciate any rubs or murmurs. No edema. Musculoskeletal: no cyanosis or clubbing, extremities motor strength 5/5 Neurologic: Cognition is intact. Speech is fluent. No focal deficits. Psychiatric: A+Ox3, euthymic affect Results & Data Vital Signs (Past 12 Hours) Vital Signs Temp Pulse Pulse Resp BP BP Pulse Ox 12/11/24 20:00 139/92 12/11/24 20:00 67 28 H 100 12/11/24 19:50 138/90 12/11/24 19:48 71 14 100 12/11/24 19:45 67 13 99 12/11/24 19:45 141/85 H 12/11/24 19:40 139/95 12/11/24 19:39 65 15 100 12/11/24 19:30 148/90 H 12/11/24 19:30 148/90 H 12/11/24 19:30 148/90 H 12/11/24 19:25 151/96 H 12/11/24 19:25 151/96 H 12/11/24 19:24 67 14 99 12/11/24 19:20 147/97 H 12/11/24 19:15 67 16 100 12/11/24 19:15 147/103 H 12/11/24 19:15 147/103 H 12/11/24 19:12 67 16 100 12/11/24 19:11 68 13 152/100 H 100 12/11/24 19:10 152/100 H 12/11/24 19:06 64 12 12/11/24 18:58 62 12/11/24 18:56 157/104 H 12/11/24 18:56 157/104 H 12/11/24 18:54 69 18 100 12/11/24 18:45 100 12/11/24 18:44 70 18 160/99 H 100 12/11/24 18:44 70 100 12/11/24 18:44 100 12/11/24 18:40 160/99 H 12/11/24 16:21 36.6 C 73 20 186/111 H 100 O2 Del Method 12/11/24 20:00 12/11/24 20:00 12/11/24 19:50 12/11/24 19:48 12/11/24 19:45 12/11/24 19:45 12/11/24 19:40 12/11/24 19:39 12/11/24 19:30 12/11/24 19:30 12/11/24 19:30 12/11/24 19:25 12/11/24 19:25 12/11/24 19:24 12/11/24 19:20 12/11/24 19:15 12/11/24 19:15 12/11/24 19:15 12/11/24 19:12 12/11/24 19:11 Room Air 12/11/24 19:10 12/11/24 19:06 12/11/24 18:58 12/11/24 18:56 12/11/24 18:56 12/11/24 18:54 12/11/24 18:45 Room Air 12/11/24 18:44 Room Air 12/11/24 18:44 Room Air 12/11/24 18:44 Room Air 12/11/24 18:40 12/11/24 16:21 PG Care Time/CCT Total # of Minutes Spent Total Time Spent with Patient: Total time spent is greater than 50% in coordination of care (as documented) at patient's floor/unit and/or counseling patient: I spent 70 minutes of critical care time in the initial evaluation of the patient, examination, discussion with her and her , discussion with the ER physician and care team, formulation and implementation of a plan of care and all associated documentation. This time is exclusive of the time spent for the procedure. Coding Level of Care Code 20494 CRITICAL CARE 1ST 30-74M Diagnoses ACS (acute coronary syndrome) I24.9 Stented coronary artery Z95.5 Hypertensive urgency I16.0 Gestational diabetes mellitus (GDM) affecting , antepartum O24.419 Time Spent (min) 70
[2024-12-11] MEDS ORDERED: POTASSIUM CHLORIDE CRTAB 20 MEQ TABCR PO STA (23:06)
--- NOTE | 2024-12-11 23:10 | Critical Care Consultation ---
Date of Consultation December 11, 2024 Assessment & Plan (1) ACS (acute coronary syndrome): (2) Stented coronary artery: (3) Obesity: Plan Reason Critically Ill: 34 YOF presents with chest pain- concern for ACS and taken to the laboratory courier. Patient received 3 CESIA to the Circ and concern for coronary artery dissection. Neuro - No acute needs CAM ICU: Negative Cardiac - ACS, Stent x3 to Circ, coronary artery dissection (believed to be spontaneous) - Patient post cath with TR band and right groin angioseal- no hematomas- CV/NV intact - she is chest pain free - Heparin infusion x 48 hours with antiplatelet medications - deferred to cardiology/interventional cards - She was notably hypertensive in the ER- follow through night- cardiology ordered amlodipine 5mg now - will follow, she has prn hydralazine as well - GDMT per cardiology- pending HGB A1c, Lipid panel, BB BID - ECHO in am - monitor for return of symptoms, bleeding or changes Respiratory - No acute needs - wean oxygen as able GI - No acute needs - obesity- she is on Zepbound for this RENAL/LYTES - No acute needs - ICU electrolyte protocol - 20meq KCL oral now - 2 GM Magnesium IV - No acute needs - follow for any retention ENDO - No acute needs - HGB A1c In am HEME - No acute needs - Heparin infusion as above- per protocol ID - No concerns for infective cause at this time LINES/IV ACCESS - PIV Continue use of these lines DVT PROPHYLAXIS - SCDS, Heparin infusion DISPO: ICU to monitor hemodynamics trend symptomatology post stents I have personally spent 55 minutes of time in the direct management of this patient. This is a life/limb threatening event. This includes time spent evaluating patient, direct bedside care, chart review, placing orders, interpretation of diagnostic studies, discussion with consultants, patient, and family members, as well as other required patient management activities. This time is exclusive of all separately billable procedures, and separate from and in addition to any other critical care service time. Thank you for allowing us to participate in the care of this patient. Please refer to my attending physician's documentation for any further recommendations. History of Present Illness Reason for Consultation: post PCI with stents to circ Requesting Physician: Dulce Woods DO Attending Physician: Dulce Woods DO History of Present Illness 34 YOF with medical history of: obesity and migraines. Patient reports only medicines is Zepbound. She reports family history of CVA and Heart disease. She does not smoke. Patient came to the ER today for evaluation of chest pain. She reports that her chest pain had started at 0400 in the morning of 12/11/34. She took some TUMS without relief and tried to rest through the day. The pain would come on strong for a few minutes to 10/10 and relent at times to a 4/10, but would not go totally away. The pain was located in the center of her chest and felt like a sharp burning pain. It was associated with breathlessness and diaphoresis. In the ER the patient had CXR completed, ECG x2, CTA of the chest, and routine labs to include HsCTNI. Patient CTA of chest was negative for PE, ECGS with mild T wave changes, and elevated HsCTNI at 778. Heart alert was called as her chest pain continued despite nitroglycerine SL. She was given asa, BB, loaded with heparin. In the labelling machine operator, the patient received 3 CESIA to the circ. She remains on heparin infusion at this time reportedly for 48 hours for concern of dissection reported. She arrives to the ICU pain free, awake, on room air. She has a right wrist site with TR band on, as well as right groin with angioseal. CODE: FULL Allergies Allergy/AdvReac Type Severity Reaction Status Date / Time cat dander Allergy Intermediate PUFFY Verified 12/25/22 12:27 EYES, ITCHY THROAT Home Medications Medication Instructions Recorded Confirmed Type No Known Home Medications 12/11/24 12/11/24 History Patient History Medical History History of chicken pox History of spontaneous History of chlamydia infection Miscarriage Surgical History H/O oral surgery wisdom teeth removed 2010 Status post laparoscopic cholecystectomy 2013 Family History Mother Stroke Diabetes Glaucoma Hypertension Grandfather (Maternal) Stroke Diabetes Hypertension Myocardial infarction Prostate cancer Colorectal cancer Grandmother (Maternal) Diabetes Glaucoma Hypertension Myocardial infarction Father Hypertension Denies family history of Ovarian cancer Breast cancer Social History (Reviewed 12/11/24 @ 22:53 by TATYANA Guevara Smoking Status: Never smoker Do You Dip or Chew Tobacco: No; Hx Alcohol Use: No Hx Substance Use: No Preferred Language: Yoruba Communication Ability: Effective 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 Beliefs That Will Affect Care: None marital status: marital status details: Edgar Mckeon (33) [phone] Current Living Situation: Spouse Current Living Situation Comment: lives with spouse, 3 children, no pets current occupational status: employed and student 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 [email or web address] Feels Safe at Home: Yes Assistive Devices: None Review of Systems Review of Systems: REVIEW OF SYSTEMS: Constitutional: No fever, sweats or chills Eyes: No diplopia, no worsening or blurred vision ENT: normal hearing, no trouble swallowing Respiratory: No cough, sputum, dyspnea at rest or on exertion Cardiovascular: (+) chest pain, No tightness or palpitations Abdomen: No pain, nausea, vomiting, diarrhea or constipation Musculoskeletal: No joint pain, calf pain, swelling Neurologic: No weakness, numbness/tingling, or balance problems Psychiatric: No anxiety or depression Skin: No rash or itch Physical Exam Physical Exam: PHYSICAL EXAM: General: awake, alert, no apparent distress Head: Normocephalic, atraumatic ENT: PERRLA, EOMI, no pharyngeal exudate, mucous membranes moist Neuro: AAO x 3, speech clear and appropriate, strength intact bilaterally 5/5, sensation intact and equal all extremities, no pronator drift Chest: equal rise and fall of the chest, no accessory muscle use, no heaves or thirlls, Clear to auscultation, on room air, Cardiac: Regular rate and rhythm, telemetry reviewed- NSR no ectopy, skin warm dry, cap refill <3 seconds, peripheral pulses +2 no JVD, no murmur, no edema, right wrist with TR band on no hematoma- sensation intact in right hand and fingers, right groin site with dressing over- no hematoma- peripheral pulses and sensation intact distally GI: NABS x 4 quadrants, soft, nontender to palpation, no rebound, guarding or tenderness : Spontaneously voiding, no pain, no CVA tenderness, Extremities: Normal inspection, no peripheral edema or erythema, calfs nontender to palpation Psych: Normal mood and affect Skin: no rash or erythema Results & Data Results & Data Vital Signs (Past 12 Hours) Vital Signs Temp Pulse Pulse Resp BP BP Pulse Ox 12/11/24 20:00 139/92 12/11/24 20:00 67 28 H 100 12/11/24 19:50 138/90 12/11/24 19:48 71 14 100 12/11/24 19:45 67 13 99 12/11/24 19:45 141/85 H 12/11/24 19:40 139/95 12/11/24 19:39 65 15 100 12/11/24 19:30 148/90 H 12/11/24 19:30 148/90 H 12/11/24 19:30 148/90 H 12/11/24 19:25 151/96 H 12/11/24 19:25 151/96 H 12/11/24 19:24 67 14 99 12/11/24 19:20 147/97 H 12/11/24 19:15 67 16 100 12/11/24 19:15 147/103 H 12/11/24 19:15 147/103 H 12/11/24 19:12 67 16 100 12/11/24 19:11 68 13 152/100 H 100 12/11/24 19:10 152/100 H 12/11/24 19:06 64 12 12/11/24 18:58 62 12/11/24 18:56 157/104 H 12/11/24 18:56 157/104 H 12/11/24 18:54 69 18 100 12/11/24 18:45 100 12/11/24 18:44 70 18 160/99 H 100 12/11/24 18:44 70 100 12/11/24 18:44 100 12/11/24 18:40 160/99 H 12/11/24 16:21 36.6 C 73 20 186/111 H 100 O2 Del Method 12/11/24 20:00 12/11/24 20:00 12/11/24 19:50 12/11/24 19:48 12/11/24 19:45 12/11/24 19:45 12/11/24 19:40 12/11/24 19:39 12/11/24 19:30 12/11/24 19:30 12/11/24 19:30 12/11/24 19:25 12/11/24 19:25 12/11/24 19:24 12/11/24 19:20 12/11/24 19:15 12/11/24 19:15 12/11/24 19:15 12/11/24 19:12 12/11/24 19:11 Room Air 12/11/24 19:10 12/11/24 19:06 12/11/24 18:58 12/11/24 18:56 12/11/24 18:56 12/11/24 18:54 12/11/24 18:45 Room Air 12/11/24 18:44 Room Air 12/11/24 18:44 Room Air 12/11/24 18:44 Room Air 12/11/24 18:40 12/11/24 16:21 Laboratory Results Abnormal lab results 12/11/24 12/11/24 12/11/24 Range/Units 16:46 19:11 20:43 Hgb 11.7 L (12.0-16.0) g/dl Hct 36.3 L (37.0-47.0) % MCV 75.9 L (80.0-100.0) fL MCH 24.5 L (25.0-34.0) pg RDW Coeff of Nir 15.4 H (11.5-14.5) % Activ Coag Time Kaolin 170 H (94-140) SECONDS Potassium 3.2 L (3.5-5.1) mmol/L BUN/Creatinine Ratio 9.5 L (10-20) Troponin I High Sens 618.9 H* 778.5 H* D (0-14) pg/ml 12/11/24 12/11/24 12/11/24 Range/Units 21:24 21:50 22:24 Hgb (12.0-16.0) g/dl Hct (37.0-47.0) % MCV (80.0-100.0) fL MCH (25.0-34.0) pg RDW Coeff of Nir (11.5-14.5) % Activ Coag Time Kaolin 187 H 222 H 182 H (94-140) SECONDS Potassium (3.5-5.1) mmol/L BUN/Creatinine Ratio (10-20) Troponin I High Sens (0-14) pg/ml Diagnostic Findings Chest X-Ray 12/11/24 16:26 Chest radiograph, one view History: Chest pain Comparison: 04/11/2024 Findings: Single AP view of the chest performed. No focal consolidation or pleural effusion. No pneumothorax. The cardiomediastinal silhouette is within normal limits. Normal pulmonary vascularity. No evidence for lymphadenopathy. No visualized bony or soft tissue abnormality. Impression: Normal chest radiograph Electronically signed by Keon Dempsey 12-11-2024 5:17 PM Chest CTA 12/11/24 18:23 EXAM: CT angio chest PE protocol CLINICAL HISTORY: Trop 700 going to back. TECHNIQUE: Contiguous 3.[address] angiographic images of the chest were acquired with the administration of intravenous contrast. Coronal and sagittal reconstructions were obtained. 118 cc opti 320 was administered for post-contrast images. One of these 3D techniques was utilized: Maximum Intensity Pixel (MIP), 3D Reconstructed Images, Volume Rendered Images, Surface Shaded Rendering. One of the following dose reduction techniques were utilized for this exam: Automated exposure control, adjustment of the mA and/or kV according to patient size, and use of iterative reconstruction. CTDI: 40.1 mGy. DLP: 889.38 mGy-cm. COMPARISON: CT dated 04/11/2024. FINDINGS: Aorta: The thoracic aorta is normal in caliber. No evidence of aneurysm, dissection, or significant atherosclerotic changes. Aortic arch and descending thoracic aorta are unremarkable. Pulmonary Arteries: Pulmonary arteries are normal in size and opacification. No evidence of pulmonary embolism. No stenosis or filling defects. Superior Vena Cava (SVC) and Inferior Vena Cava (IVC): Normal opacification and caliber. No evidence of thrombus or obstruction. Coronary Arteries: Coronary arteries are well-opacified. No significant stenosis or atherosclerotic changes. Mediastinum: No mediastinal mass or lymphadenopathy. Normal appearance of the thymus. Heart: Normal size and morphology of the heart. No pericardial effusion. Lungs: 5 mm calcified pulmonary nodule is seen in the right lower lung lobe image 32. No evidence of consolidation or masses. No pleural effusion or thickening. Bones: No fractures or lytic/sclerotic lesions of the visualized bony structures. Normal alignment and bone density. Soft Tissues: Normal appearance of the visualized soft tissues. No abnormal masses or fluid collections. Cholecystectomy Seth. IMPRESSION: 1. No evidence of pulmonary embolism or other significant vascular abnormality. 2. Right lower lobe calcified pulmonary nodule likely granulomatous. 3. Cholecystectomy. Electronically signed by Serjio Slater 12-11-2024 7:36 PM Medications Administered Home Medications No Known Home Medications 12/11/24 [History Confirmed 12/11/24] Active Medications Amlodipine Besylate (Amlodipine Besylate 5 Mg Tab) 5 mg PO NOW ONE Stop: 12/11/24 22:41 Amlodipine Besylate (Amlodipine Besylate 5 Mg Tab) 5 mg PO QAM [facility] Stop: 01/11/25 08:59 Aspirin (Aspirin 81 Mg Ectab) 81 mg PO QAM [facility] Stop: 01/11/25 08:59 Atorvastatin Calcium (Atorvastatin 20 Mg Tab) 20 mg PO QAM [facility] Stop: 01/11/25 08:59 Atropine Sulfate (Atropine Sulfate 0.1 Mg/Ml 10ml Syr) 0.5 mg IV UD PRN PRN Reason: bradycardia/hypotension Stop: 01/10/25 22:34 Hydralazine HCl (Hydralazine Hcl 20 Mg/Ml Vial) 10 mg IV Q6 PRN PRN Reason: Blood Pressure - High Stop: 01/10/25 22:39 Heparin Sodium/Dextrose (Heparin 88794 Unit/500 Ml D5w) 25,000 units in 500 mls @ 19 mls/hr IV .Q24H [facility]; Protocol Stop: 01/10/25 20:14 Last Admin: 12/11/24 20:01 Dose: 950 units/hr, 19 mls/hr Metoprolol Tartrate (Metoprolol Tartrate 25 Mg Tab) 25 mg PO BID [facility] Stop: 01/11/25 08:59 Ondansetron HCl (Ondansetron Inj 2 Mg/Ml 2 Ml Vial) 4 mg IV Q6H PRN PRN Reason: Nausea And Vomiting Stop: 01/10/25 22:34 Ticagrelor (Ticagrelor 90 Mg Tab) 90 mg PO BID [facility] Stop: 01/11/25 08:59 ECG Additional Comments: Sinus rhythmwith 1st degree A-V block Left axis deviation Left ventricular hypertrophywith repolarization abnormality(R in aVL, Markel product) Abnormal ECG When compared with ECG [id number] 16:35,(unconfirmed) No significant change was found Coding Level of Care Code 22389 INT INP/OBS CARE 2/55MIN Diagnoses ACS (acute coronary syndrome) I24.9 Stented coronary artery Z95.5 Obesity E66.9
[2024-12-11 23:22] LABS: Basophils # (auto) 0.03 K/uL (0.00-0.20); Basophils % (auto) 0.3 %; Eosinophils # (auto) 0.17 K/uL (0.00-0.50); Eosinophils % (auto) 1.8 %; Hematocrit (blood only) 35.7 % (37.0-47.0); Hemoglobin 11.6 g/dl (12.0-16.0); Immature Granulocytes # (auto) 0.02 K/uL (0.01-0.20); Immature Granulocytes % (auto) 0.2 %; Lymphocytes # (auto) 2.92 K/uL (1.20-3.40); Lymphocytes % (auto) 31.5 %; Mean Corpuscular Hgb Conc 32.5 g/dL (32.0-36.0); Mean Corpuscular Volume 76.9 fL (80.0-100.0); Mean Platelet Volume 11.3 fL (9.4-12.4); Monocytes # (auto) 0.67 K/uL (0.11-0.59); Monocytes % (auto) 7.2 %; Neutrophils # (auto) 5.45 K/uL (1.40-6.50); Platelet Count 171 K/uL (130-400); RDW Coefficient of Variation 15.5 % (11.5-14.5); Red Blood Count 4.64 M/uL (4.20-5.40); White Blood Count 9.26 K/ul (4.8-10.8)
[2024-12-11] MEDS: MAGNESIUM SULFATE / D5W 1 GM/100 ML BAG IV SCH (23:38)
[2024-12-11] MEDS: amLODIPine BESYLATE 5 MG TAB PO ONE (23:39)
[2024-12-11] MEDS: POTASSIUM CHLORIDE CRTAB 20 MEQ TABCR PO STA (23:39)
[2024-12-12] MEDS: AMIODARONE HCL INJ 50 MG/ML 3 ML VIAL (CATH LAB USE ONLY) IV ONE (00:13)
[2024-12-12] MEDS: TICAGRELOR 90 MG TAB ONE (00:14)
[2024-12-12] MEDS: fentaNYL citrate PF 100 MCG/2 ML VIAL ONE (00:14)
[2024-12-12 02:55] LABS: ANTI-Xa, UFH(UnfractionatedHep 0.56 IU/ml (0.3-0.7)
--- OUTSIDE RECORDS SUMMARY | 2024-12-12 05:00 | External Medical Summary | Continuity of Care Document ---
Author Name Unknown Organization [place] [address] [place] [phone] Care Team Providers Care Denier Control Operator Name Role Phone Yesica Maritnez Primary Care Physician [phone] [facility] [id number] Date(s): 08/19/24 - 08/19/24 [facility] [address] Medical [facility] [address] [address] [phone] Encounter Diagnosis Well woman exam(Discharge Diagnosis) - 08/19/24 Impaired fasting glucose(Discharge Diagnosis) - 08/19/24 Body mass index [BMI] 50.0-59.9, adult(Discharge Diagnosis) - 08/19/24 Encounter for gynecological examination (general) (routine) without abnormal findings(Final) - Discharge Disposition: Home or Self Care Attending Physician: DO Yuan Allison B Allergies, Adverse Reactions, Alerts No Known Medication Allergies Substance Criticality Severity Reaction Reaction Severity Status Cats Eyes swell, itching Active Immunizations Given and Recorded Vaccine Date Status Refusal Reason tetanus/diphtheria/pertuss, acel (Tdap) 1 11/11/21 Recorded tetanus/diphtheria/pertuss, acel (Tdap) 2 07/29/19 Recorded 1Result Comment: 2023-07-21: Historical information-source unspecified 2Result Comment: 2023-07-21: Historical information-source unspecified Medications Imitrex 50 mg oral tablet Start: 07/10/23 12:05:00 PM EDT, 1 tab, PO, Daily, Disp# 9 tab, Refills: 1, may repeat dose in 2 hours if needed, PRN: as needed for migraine headache, Pharmacy: [id number] Start Date: 07/10/23 Status: Ordered Zepbound 2.5 mg/0.5 mL subcutaneous solution Start: 08/19/24 9:23:00 AM EST, 2.5 mg =, subQ, q7days, Disp# 2 mL, Inject 2.5 mg SQ every 7 days X4 weeks then increase to 5 mg every 7 days, Pharmacy: [id number] Start Date: 08/19/24 Status: Ordered Mental Status 08/19/24 Barriers to Learning one year None evide nt Mandatory Health Literacy Documentation Yes Health Literacy Communication Barriers N ever Primary Language Burundian Problem List Condition Confirmation Course Effective Dates Status Health St atus Informant Back pain Confirmed Active Body mass index [BMI] 50.0-59.9, adult Confirmed Active Migraine Confirmed Active Large breasts Confirmed Active Diagnosis Diagnosis Type Effective Dates Health Status Cl inical Service Informant Impaired fasting glucose Discharge Diagnosis 08/19/24 Non-Specified Body mass index [BMI] 50.0-59.9, adult Discharge Diagnosis 08/19/24 Non-Specified Well woman exam Discharge Diagnosis 08/19/24 Non-Specified Procedures Procedure Date Related Diagnosis Body Site Status CXR - Chest X-ray 1 05/20/21 Compl eted Cholecystectomy 2014 Completed 1No active disease in the chest Vital Signs Most recent to oldest [Reference Range]: 1 Height 162 cm (08/19/24 8:50 AM) Patient Weight 136 kg (08/19/24 8:50 AM) Body Mass Index 51.82 kg/m2 (08/19/24 8:50 AM) Heart Rate 79 bpm (08/19/24 8:50 AM) Respiratory Rate 18 br/min (08/19/24 8:50 AM) Blood Pressure 118/80mmHg (08/19/24 8:50 AM) Cuff Pulse Pressure 38 mmHg (08/19/24 8:50 AM) Social History Social History Type Response Smoking Status Never smoked cigaret marvin Sex Female Sex Representation Female (finding) Patient Care team information Care Team Personnel Name: MD Martinez Margaret Position: Resident Member Role: Primary Care Provider Address: [address] [address] [place] Name: DO Madrigal Sameer Position: Resident Member Role: Lifetime Relationship Address: [address] [address] [place] Care Team Related Persons Name: DARREN ZHU
--- OUTSIDE RECORDS SUMMARY | 2024-12-12 05:00 | External Medical Summary | Continuity of Care Document ---
Author Name Unknown Organization [facility] [facility] [address] [address] [place] [id number] Care Team Providers Care Flavor Tank Tender Name Role Phone Yesica Martinez Primary Care Physician [phone] [id number] Date[facility]s): 10/11/24 - 10/11/24 [facility] [address] [place] [address] [address] [phone] Encounter Diagnosis Body mass index [BMI] 45.0-49.9, adult(Discharge Diagnosis) - 10/11/24 Weight loss due to medication(Discharge Diagnosis) - 10/11/24 Discharge Disposition: Home or Self Care Attending [...] PRN: as needed for migraine headache, Pharmacy: [id number] Start Date: 07/10/23 Status: Ordered tirzepatide 7.5 mg/0.5 mL subcutaneous solution Start: 10/11/24 3:28:00 PM EST, 7.5 mg =, subQ, q7days, Disp# 4 kit, Pharmacy: [id number] Start Date: 10/11/24 Stop Date: 11/10/24 Status: Ordered Mental Status 10/11/24 Barriers to Learning one year None evide nt Mandatory Health Literacy Documentation Yes Health Literacy Communication Barriers N ever Primary Language Cymro Problem List Condition Confirmation Course Effective Dates Status Health St atus Informant Back pain Confirmed Active Migraine Confirmed Active Large breasts Confirmed Active Diagnosis Diagnosis Type Effective Dates Health Status Clinical Service Informant Body mass index [BMI] 45.0-49.9, adult Discharge Diagnosis 10/11/24 Non-Specified Weight loss due to medication Discharge Diagnosis 10/11/24 Non-Specified Procedures Procedure Date Related Diagnosis Body Site Status CXR - Chest X-ray 1 05/20/21 Compl eted Cholecystectomy 2014 Completed 1No active disease in the chest Vital Signs Most recent to oldest [Reference Range]: 1 Height 163 cm (10/11/24 3:21 PM) Patient Weight 130.3 kg (10/11/24 3:21 PM) Body Mass Index 49.04 kg/m2 (10/11/24 3:21 PM) Heart Rate 73 bpm (10/11/24 3:21 PM) Respiratory Rate 18 br/min (10/11/24 3:21 PM) Blood Pressure 122/84mmHg (10/11/24 3:21 PM) Cuff Pulse Pressure 38 mmHg (10/11/24 3:21 PM) Social History Social History Type Response Smoking Status Never smoked cigaret marvin Sex Female Sex Representation Female (finding) Patient Care team information Care Team Personnel Name: MD Martinez Margaret Position: Resident Member Role: Primary Care Provider Address: [place] [address] [place] Name: DO Madrigal Sameer Position: Resident Member Role: Lifetime Relationship Address: [address] [place] [address] [place] Care Team Related Persons Name: DARREN ZHU
--- OUTSIDE RECORDS SUMMARY | 2024-12-12 05:00 | External Medical Summary | Continuity of Care Document ---
Author Name Unknown Organization [facility] [facility] [address] [place] [phone] Care Team Providers Care Hospice Physician Name Role Phone Yesica Martinez Primary Care Physician [phone] [id number] Date[facility]): 07/22/24 - 07/22/24 [facility] [address] Medical [facility] [address] [phone] Encounter Diagnosis Preventative health care(Discharge Diagnosis) - 07/22/24 Body mass index [BMI] 50.0-59.9, adult(Discharge Diagnosis) - 07/22/24 Vaginal candidiasis(Discharge Diagnosis) - 07/22/24 Body mass index [BMI] 50.0-59.9, adult(Final) - Encounter for general adult medical examination without abnormal findings(Final) - Large breasts(Discharge Diagnosis) - 07/22/24 Back pain(Discharge Diagnosis) - 07/22/24 Discharge Disposition: Home or Self Care Attending Physician: DO Brady Gretchen Elizabeth Allergies, Adverse Reactions, Alerts No Known Medication Allergies Substance Criticality Severity Reaction Reaction Severity Status Cats Eyes swell, itching Active Assessment and Plan Extracted from: Title:FCM - CPE + Author:MD Martinez Margaret Da te:07/22/24 1.Preventative health care BP acceptable. BMI elevated - see discussion below. Due for pap - to schedule. Declines flu shot. 2.Body mass index [BMI] 50.0-59.9, adult Chronic condition not at goal/exacerbated/progressive/side effects of treatment Goal: Weight loss Data:unique tests ordered: _lipids,HbA1c,CMP, TSH Plan: Labs as above to help guide GLP-1 agonist choice. Will escalate monthly to maximal tolerated dose. Patient educated to contact office with intolerance of medication. Can sendscript for zofran ODTas well to use for nausea. - reviewed the options for weight loss assistance including multiple medication modalities - considered specialist care referral, defer at this time - patient has been actively participating in a lifestyle modification program the last 6months which encourages both reduced caloric intake and increased exercise - follow up in 3months 3.Vaginal candidiasis Acute, uncomplicated illness/injury Goal: Resolution Data:_ Plan: Related to recent abx use. Will send diflucanx1 with additional dose to repeat in 72 hours if still having symptoms. 4.Large breasts Chronic condition not at goal/exacerbated/progressive/side effects of treatment Goal: Symptom management Data:_ Plan: Patient with large breasts causing back/neck/shoulder pain. Ideally would have some improvement with weight loss, but may need surgical intervention if symptoms persist. Recommend core strengthening exercises. Could consider PT. Will continue to monitor. 5.Back pain See above Immunizations Given and Recorded Vaccine Date Status Refusal Reason tetanus/diphtheria/pertuss, acel (Tdap) 1 11/11/21 Recorded tetanus/diphtheria/pertuss, acel (Tdap) 2 07/29/19 Recorded 1Result Comment: 2023-07-21: Historical information-source unspecified 2Result Comment: 2023-07-21: Historical information-source unspecified Medications Diflucan 150 mg oral tablet Start: 07/22/24 10:00:00 AM EDT, See Instructions, Disp# 2 tab, 1 tab PO repeat in 72 hours if still symptomatic, Pharmacy: [facility] Start Date: 07/22/24 Status: Ordered Imitrex 50 mg oral tablet Start: 07/10/23 12:05:00 PM EDT, 1 tab, PO, Daily, Disp# 9 tab, Refills: 1, may repeat dose in 2 hours if needed, PRN: as needed for migraine headache, Pharmacy: [facility] Start Date: 07/10/23 Status: Ordered Mental Status 07/22/24 Barriers to Learning one year None evide nt Mandatory Health Literacy Documentation Yes Health Literacy Communication Barriers N ever Primary Language Iranian Problem List Condition Confirmation Course Effective Dates Status Health St atus Informant Back pain Confirmed Active Body mass index [BMI] 50.0-59.9, adult Confirmed Active Migraine Confirmed Active Large breasts Confirmed Active Diagnosis Diagnosis Type Effective Dates Health Status Clinical Service Informant Preventative health care Discharge Diagnosis 07/22/24 Non-Specified Vaginal candidiasis Discharge Diagnosis 07/22/24 Non-Specified Body mass index [BMI] 50.0-59.9, adult Discharge Diagnosis 07/22/24 Non-Specified Back pain Discharge Diagnosis 07/22/24 Non-Specified Large breasts Discharge Diagnosis 07/22/24 Non-Specified Procedures Procedure Date Related Diagnosis Body Site Status CXR - Chest X-ray 1 05/20/21 Compl eted Cholecystectomy 2014 Completed 1No active disease in the chest Results Laboratory List Name Date Comprehensive Metabolic Panel (COMP META B PANEL) 07/22/24 Hemoglobin A1C (HEMOGLOBIN, A1C) 4 Lipid Profile (LIPOPROTEINS) 07/22/24 Thyroid Stimulating Hormone (TSH) Most recent to oldest [Reference Range]: 1 eGFR CKD-EPI [>60 mL/min/1.73 m2] >90 mL /min/1.73 m2 1 (07/22/24 10:27 AM) Estimated Average Glucose 137 mg/dL 2 (07/22/24 10: AM) Non-HDL 88 mg/dL 3 (07/22/24 10: AM) Estimated CrCl 195.13 mL/min (07/22/24 12:43 PM) Anion Gap [5-14 mmol/L] 6 mmol/L (07/22/24 10:27 AM) Alb [3.5-5.0 g/dL] 4.0 g/dL (07/22/24 10:27 AM) Alk Phos [38-126 unit/L] 75 unit/L (07/22/24 10:27 AM) ALT [<35 unit/L] 18 unit/L (07/22/24 10:27 AM) AST [15-46 unit/L] 51 unit/L *HI* (07/22/24 10: AM) BUN [7-20 mg/dL] 13 mg/dL (07/22/24 10:27 AM) Ca [8.4-10.2 mg/dL] 8.9 mg/dL (07/22/24 10:27 AM) Chol/HDL 3 (07/22/24 10:27 AM) Chol [125-200 mg/dL] 134 mg/dL (07/22/24 10:27 AM) Cl- [96-107 mmol/L] 107 mmol/L (07/22/24 10: AM) HCO3 [22-30 mmol/L] 27 mmol/L (07/22/24 10: AM) Cret [0.60-1.00 mg/dL] 0.55 mg/dL *LOW* (07/22/24 10: AM) HbA1c [4.0-6.0 %] 6.4 % *HI* (07/22/24 10: AM) Glu [74-106 mg/dL] 103 mg/dL (07/22/24 10: AM) HDL [>35 mg/dL] 46 mg/dL (07/22/24 10: AM) K [3.5-5.1 mmol/L] 4.2 mmol/L (07/22/24 10: AM) LDL Chol, Calculated [50-130 mg/dL] 74 m g/dL (07/22/24 10: AM) Na [137-145 mmol/L] 140 mmol/L (07/22/24 10: AM) T Bili [0.2-1.3 mg/dL] 0.4 mg/dL (07/22/24 10: AM) Prot [6.3-8.2 g/dL] 7.7 g/dL (07/22/24 10: AM) TG [<200 mg/dL] 72 mg/dL (07/22/24 10: AM) TSH [0.47-4.68 uIU/mL] 1.24 uIU/mL 4 (07/22/24 10: AM) 1Result Comment: Testing Performed By: Dept of Pathology [facility] [address], [address], [place] [address] 2Result Comment: Testing Performed By: Dept of Pathology [facility] [address], [place] [address] 3Result Comment: Testing Performed By: Dept of Pathology [facility] [address]ita Krishnan, [address], [place] [address] 4Result Comment: Testing Performed By: Dept of Pathology [facility] [address] Krishnan, [address], [place] [address] Vital Signs Most recent to oldest [Reference Range]: 1 Height 161.6 cm (07/22/24 9:19 AM) Patient Weight 135.7 kg (07/22/24 9:19 AM) Body Mass Index 51.96 kg/m2 (07/22/24 9:19 AM) Heart Rate 83 bpm (07/22/24 9:19 AM) Respiratory Rate 18 br/min (07/22/24 9:19 AM) Blood Pressure 126/84mmHg (07/22/24 9:19 AM) Cuff Pulse Pressure 42 mmHg (07/22/24 9:19 AM) Social History Social History Type Response Smoking Status Never smoked cigaret marvin Sex Female Sex Representation Female (finding) FCM Outpt Note * MD Jorge, Keon: MODIFY MD Patel Christopher: MODIFY Event Display: FCM Outpt Note Authored Date: Assessment/Plan 1.Preventative health care BP acceptable. BMI elevated - see discussion below. Due for pap - to schedule. Declines flu shot. 2.Body mass index [BMI] 50.0-59.9, adult Chronic condition not at goal/exacerbated/progressive/side effects of treatment Goal: Weight loss Data:unique tests ordered: _lipids,HbA1c,CMP, TSH Plan: Labs as above to help guide GLP-1 agonist choice. Will escalate monthly to maximal tolerated dose. Patient educated to contact office with intolerance of medication. Can sendscript for zofran ODTas well to use for nausea. - reviewed the options for weight loss assistance including multiple medication modalities - considered specialist care referral,defer at this time - patient has been actively participating in a lifestyle modification program the [id number] which encourages both reduced caloric intake and increased exercise - follow up [id number] 3.Vaginal candidiasis Acute, uncomplicated illness/injury Goal: Resolution Data:_ Plan: Related to recent abx use. Will send diflucanx1 with additional dose to repeat in 72 hours if still having symptoms. 4.Large breasts Chronic condition not at goal/exacerbated/progressive/side effects of treatment Goal: Symptom management Data:_ Plan: Patient with large breasts causing back/neck/shoulder pain. Ideally would have some improvement with weight loss, but may need surgical intervention if symptoms persist. Recommend core strengthening exercises. Could consider PT. Will continue to monitor. 5.Back pain See above Attestation Pt seen and examined in concert with Dr. Martinez, agree with history and physical as documented above. Plan reviewed in detail. Any corrections or additions are noted here -annual physicalwith routine preventative care and recommendations as noted above. Re: breasts and back pain, agree w/ counseling re: weight loss, activity and consideration of referral. Re: vulvovaginal candidasis int he settin gof recent abx use, agree w/ diflucan as noted. Chief Complaint Discuss labs, wt management - pain from how lrg chest is. History of Present Illness 34 y/o here for a CPE and to discuss weight loss. Back Pain: Patient has significant back pain related to her breast size. Has difficulty finding a bra that works for her. Due to the weight of her breasts the straps dig into her shoulders and are very painful.If she wears a larger bra there isn't enough support. Patient has been gaining weight and her breasts are getting larger as well. Weight: Patient has been gaining weight. Is trying to be intentional with her food choices and has been increasing her exercise levels. Previously wasn't eating much because she didn't remember toeat. Patient is concerned about her weight and her future health. Patient's bothhave high blood pressure and diabetes. 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 Has trouble making time to take care of herself. Physical Exam Vitals & Measurements HR:83(Monitored) RR:18 BP:126/84 SpO2:98% HT:161.6cm WT:135.7kg WT:135.700kg(Dosing) BMI:51.96 PHQ2 Data(Data Documented on:07/22/2024 09:15) Emotional health assessment NEGATIVE Gen: well appearing patientin NAD HEENT: AT NC CV: RRR no m/r/g clinically well perfused Resp: CTAB no wheezingno increased work of breathing Abd: non-distended MSK: no obvious deformities Skin: no bruising or rashes noted Psych: appropriate mood and affect Neuro: alert and oriented Problem List/Past Medical History Ongoing Back pain Body mass index [BMI] 50.0-59.9, adult Large breasts Migraine Procedure/Surgical History CXR - Chest X-ray| Service Date: 1Cholecystectomy| Service Date: 2013 Medications fluconazole(Diflucan 150 mg oral tablet), See Instructions SUMAtriptan(Imitrex 50 mg oral tablet), 50 mg= 1 tab, PO, Daily, PRN, 1 refills Allergies CatsEyes swell, itching No Known Medication Allergies Social History Smoking Status Never smoked cigarettes Alcohol - No Risk Use:Current Frequency:1-2 times per year Exercise - Occasional exercise Nutrition/Health - Medium Risk Diet description:intentional eating, protein, hydration Sexual - Low Risk Substance Abuse - No Risk Tobacco - No Risk Family History Diabetes insipidus: Negative: Mother, Father, Sister, Brother, MGF, MGM and Unknown. Glaucoma: Mother and MGM. Heart attack: MGF and MGM. Hypertension: Mother, Father, MGF and MGM. Prostate carcinoma: MGF. Stroke: Mother and MGF. Type II diabetes mellitus: Mother and Father. Health Status Family Member(s) Immunizations Vaccine Date Status tetanus/diphtheria/pertuss, acel (Tdap) 11/11/2021 Recorded Comments : 2023-07-21: Historical information-source unspecified tetanus/diphtheria/pertuss, acel (Tdap) 07/29/2019 Recorded Comments : 2023-07-21: Historical information-source unspecified Recommendations Health Maintenance Pending(in the next year) OverDue Adult Influenza Vaccine due03/24/24and every 1year Due Adult COVID-19 Vaccination due07/22/24Unknown Frequency Adult Folic Acid Supplementation due07/22/24and every 3year Adult Social Determinants of Health Screening due07/22/24Unknown Frequency Cervical Cancer Screening due07/22/24Unknown Frequency Hepatitis C Screening due07/22/24One-time only Lipid Screening due07/22/24Unknown Frequency Satisfied(in the past 1 year) Satisfied Body Mass Index on07/22/24.Satisfied by NELLIE Drummond Alexandra Electronic Signature on File Electronically Reviewed/Signed by: Yesica Martinez MD Author Signature Dt/Tm:07/22/2024 10:40 AM Resident Department of Family Medicine Electronically Reviewed/Signed by: Keon Patel MD Cosigner Signature Dt/Tm: 07/23/2024 03:18PM Department of Family Medicine MP Patient Care team information Care Team Personnel Name: MD Martinez Margaret Position: Resident Member Role: Primary Care Provider Address: [address] [place] [address] [place] Name: DO Madrigal Sameer Position: Resident Member Role: Lifetime Relationship Address: [address] [place] [address] Care Team Related Persons Name: DARREN ZHU"
[2024-12-12 05:20] LABS: Calcium 8.5 mg/dl (8.6-10.3); Chol HDL Ratio 3.4 (0-5); Creatinine Clr Calc Pharmacy 198.9 ml/min; Potassium 3.6 mmol/L (3.5-5.1)
[2024-12-12 07:55] LABS: Estimated Average Glucose 123 mg/dl; Hemoglobin A1C 5.9 % (4.5-5.6)
[2024-12-12] MEDS: ATORVASTATIN 20 MG TAB PO SCH (07:58)
[2024-12-12] MEDS: TICAGRELOR 90 MG TAB PO SCH (07:58)
[2024-12-12] MEDS: METOPROLOL TARTRATE 25 MG TAB PO SCH (07:59)
[2024-12-12] MEDS: amLODIPine BESYLATE 5 MG TAB PO SCH (07:59)
[2024-12-12] MEDS: ASPIRIN 81 MG ECTAB PO SCH (07:59)
--- NOTE | 2024-12-12 08:41 | Electrocardiogram Report ---
Test Reason : Blood Pressure : */* mmHG Vent. Rate : 66 BPM Atrial Rate : 66 BPM P-R Int : 212 ms QRS Dur : 96 ms QT Int : 386 ms P-R-T Axes : 49 -38 -39 degrees QTcB Int : 404 ms Sinus rhythm with 1st degree A-V block Left axis deviation Moderate voltage criteria for LVH, may be normal variant Nonspecific ST and T wave abnormality Abnormal ECG When compared with ECG of 11-Apr-2024 19:52, T wave inversion more evident in Inferior leads Nonspecific T wave abnormality now evident in Anterolateral leads Confirmed by Keon Saenz ([id number]) on 12/12/2024 8:41:12 AM Referred By: REFERRED SELF Confirmed By: Keon Saenz
--- NOTE | 2024-12-12 08:44 | Electrocardiogram Report ---
Test Reason : Blood Pressure : */* mmHG Vent. Rate : 67 BPM Atrial Rate : 67 BPM P-R Int : 220 ms QRS Dur : 96 ms QT Int : 400 ms P-R-T Axes : 55 -38 -55 degrees QTcB Int : 422 ms Sinus rhythm with 1st degree A-V block Left axis deviation Left ventricular hypertrophy with repolarization abnormality vs ischemia Abnormal ECG When compared with ECG of 11-Dec-2024 16:35, (unconfirmed) No significant change was found Confirmed by Keon Saenz ([id number]) on 12/12/2024 8:43:41 AM Referred By: REFERRED SELF Confirmed By: Keon Saenz
--- NOTE | 2024-12-12 08:44 | Electrocardiogram Report ---
Test Reason : Blood Pressure : */* mmHG Vent. Rate : 69 BPM Atrial Rate : 69 BPM P-R Int : 202 ms QRS Dur : 92 ms QT Int : 402 ms P-R-T Axes : 67 -24 -66 degrees QTcB Int : 430 ms Normal sinus rhythm with sinus arrhythmia Moderate voltage criteria for LVH, may be normal variant Abnormal ECG When compared with ECG of 11-Dec-2024 18:41, (unconfirmed) No significant change was found Confirmed by Keon Saenz ([id number]) on 12/12/2024 8:44:24 AM Referred By: REFERRED SELF Confirmed By: Keon Saenz
--- NOTE | 2024-12-12 09:36 | Critical Care Progress Note ---
Date of Service December 12, 2024 Assessment & Plan (1) ACS (acute coronary syndrome): (2) Stented coronary artery: (3) Obesity: Plan Reason Critically Ill: 34 YOF presents with chest pain- concern for ACS and taken to the cathodic protection technician. Patient received 3 CESIA to the Circ and concern for coronary artery dissection. Neuro - No acute needs CAM ICU: Negative Cardiac - ACS, Stent x3 to Circ, coronary artery dissection (believed to be spontaneous) - Heparin infusion x 48 hours with antiplatelet medications - deferred to cardiology/interventional cards - GDMT per cardiology- pending HGB A1c, Lipid panel, BB BID - ECHO completed - monitor for return of symptoms, bleeding or changes Respiratory - No acute needs - wean oxygen as able GI - No acute needs - obesity- she is on Zepbound for this RENAL/LYTES - No acute needs - ICU electrolyte protocol - No acute needs - follow for any retention ENDO - No acute needs HEME - No acute needs - Heparin infusion as above- ID - No concerns for infective cause at this time LINES/IV ACCESS - PIV Continue use of these lines DVT PROPHYLAXIS - SCDS, Heparin infusion DISPO: Critical care needs have resolved we will sign off at this time Admission and Anticipated Discharge Date Admission Date: December 11, 2024 Subjective Denies complaints, feels improved Physical Exam Physical Exam: General: Alert. nontoxic. Skin: Warm, dry, Head: Atraumatic Ears, nose, mouth and throat: airway patent Cardiovascular: Normal peripheral perfusion Respiratory: no respiratory distress Gastrointestinal: Non distended Musculoskeletal: No deformity Results & Data Results & Data Vital Signs (Past 12 Hours) Vital Signs Temp Pulse Pulse Resp BP BP Pulse Ox 12/12/24 09:03 104 H 18 99 12/12/24 09:00 130/96 12/12/24 08:45 98 H 27 H 99 12/12/24 08:00 116/92 12/12/24 08:00 91 H 20 99 12/12/24 07:02 149/76 H 12/12/24 07:00 78 20 99 12/12/24 07:00 126/97 12/12/24 06:00 78 17 122/93 97 12/12/24 05:00 82 20 132/97 97 12/12/24 04:08 36.9 C 74 17 142/103 H 99 12/12/24 03:01 77 21 120/82 100 12/12/24 02:01 82 21 136/111 H 99 12/12/24 00:45 65 11 L 100 12/12/24 00:33 66 13 100 12/12/24 00:30 164/106 H 12/12/24 00:30 164/106 H 12/12/24 00:30 164/106 H 12/12/24 00:30 164/106 H 12/12/24 00:30 164/106 H 12/12/24 00:30 164/106 H 12/12/24 00:30 164/106 H 12/12/24 00:30 164/106 H 12/12/24 00:30 68 10 L 164/106 H 100 12/12/24 00:02 153/114 H 12/12/24 00:00 63 12 182/109 H 100 12/12/24 00:00 69 12/11/24 23:45 67 13 173/97 H 100 12/11/24 23:30 63 14 165/108 H 100 12/11/24 23:30 36.5 C 71 20 145/103 H 100 12/11/24 23:15 140/99 12/11/24 23:15 64 16 125/102 H 100 12/11/24 23:00 66 18 147/109 H 99 12/11/24 22:45 36.5 C 68 14 145/103 H 99 O2 Del Method 12/12/24 09:03 12/12/24 09:00 12/12/24 08:45 12/12/24 08:00 12/12/24 08:00 12/12/24 07:02 12/12/24 07:00 12/12/24 07:00 12/12/24 06:00 Room Air 12/12/24 05:00 Room Air 12/12/24 04:08 Room Air 12/12/24 03:01 Room Air 12/12/24 02:01 Room Air 12/12/24 00:45 12/12/24 00:33 12/12/24 00:30 12/12/24 00:30 12/12/24 00:30 12/12/24 00:30 12/12/24 00:30 12/12/24 00:30 12/12/24 00:30 12/12/24 00:30 12/12/24 00:30 Room Air 12/12/24 00:02 12/12/24 00:00 Room Air 12/12/24 00:00 12/11/24 23:45 Room Air 12/11/24 23:30 Room Air 12/11/24 23:30 Room Air 12/11/24 23:15 12/11/24 23:15 12/11/24 23:00 12/11/24 22:45 Critical Care Results & Data Vital Signs (Past 12 Hours) Vital Signs Temp Pulse Pulse Resp BP BP Pulse Ox 12/12/24 09:03 104 H 18 99 12/12/24 09:00 130/96 12/12/24 08:45 98 H 27 H 99 12/12/24 08:00 116/92 12/12/24 08:00 91 H 20 99 12/12/24 07:02 149/76 H 12/12/24 07:00 78 20 99 12/12/24 07:00 126/97 12/12/24 06:00 78 17 122/93 97 12/12/24 05:00 82 20 132/97 97 12/12/24 04:08 36.9 C 74 17 142/103 H 99 12/12/24 03:01 77 21 120/82 100 12/12/24 02:01 82 21 136/111 H 99 12/12/24 00:45 65 11 L 100 12/12/24 00:33 66 13 100 12/12/24 00:30 164/106 H 12/12/24 00:30 164/106 H 12/12/24 00:30 164/106 H 12/12/24 00:30 164/106 H 12/12/24 00:30 164/106 H 12/12/24 00:30 164/106 H 12/12/24 00:30 164/106 H 12/12/24 00:30 164/106 H 12/12/24 00:30 68 10 L 164/106 H 100 12/12/24 00:02 153/114 H 12/12/24 00:00 63 12 182/109 H 100 12/12/24 00:00 69 12/11/24 23:45 67 13 173/97 H 100 12/11/24 23:30 63 14 165/108 H 100 12/11/24 23:30 36.5 C 71 20 145/103 H 100 12/11/24 23:15 140/99 12/11/24 23:15 64 16 125/102 H 100 12/11/24 23:00 66 18 147/109 H 99 12/11/24 22:45 36.5 C 68 14 145/103 H 99 O2 Del Method 12/12/24 09:03 12/12/24 09:00 12/12/24 08:45 12/12/24 08:00 12/12/24 08:00 12/12/24 07:02 12/12/24 07:00 12/12/24 07:00 12/12/24 06:00 Room Air 12/12/24 05:00 Room Air 12/12/24 04:08 Room Air 12/12/24 03:01 Room Air 12/12/24 02:01 Room Air 12/12/24 00:45 12/12/24 00:33 12/12/24 00:30 12/12/24 00:30 12/12/24 00:30 12/12/24 00:30 12/12/24 00:30 12/12/24 00:30 12/12/24 00:30 12/12/24 00:30 12/12/24 00:30 Room Air 12/12/24 00:02 12/12/24 00:00 Room Air 12/12/24 00:00 12/11/24 23:45 Room Air 12/11/24 23:30 Room Air 12/11/24 23:30 Room Air 12/11/24 23:15 12/11/24 23:15 12/11/24 23:00 12/11/24 22:45 Lab & Micro Results (Past 24 Hours) RBC 4.64 M/uL (4.20-5.40) 12/11/24 WBC 9.26 K/ul (4.8-10.8) 12/11/24 Hgb 11.6 g/dl (12.0-16.0) L 12/11/24 Hct 35.7 % (37.0-47.0) L 12/11/24 MCV 76.9 fL (80.0-100.0) L 12/11/24 MCH 25.0 pg (25.0-34.0) 12/11/24 MCHC 32.5 g/dL (32.0-36.0) 12/11/24 RDW Standard Deviation 43.0 fL (36.4-46.3) 12/11/24 RDW Coefficient of Variation 15.5 % (11.5-14.5) H 12/11/24 Plt Count 171 K/uL (130-400) 12/11/24 MPV 11.3 fL (9.4-12.4) 12/11/24 Neutrophils (%) (Auto) 59.0 % 12/11/24 Lymphocytes (%) (Auto) 31.5 % 12/11/24 Monocytes # (Auto) 0.67 K/uL (0.11-0.59) H 12/11/24 Eosinophils # (Auto) 0.17 K/uL (0.00-0.50) 12/11/24 Immature Granulocyte % (Auto) 0.2 % 12/11/24 Neutrophils # (Auto) 5.45 K/uL (1.40-6.50) 12/11/24 Lymphocytes # (Auto) 2.92 K/uL (1.20-3.40) 12/11/24 Monocytes # (Auto) 0.67 K/uL (0.11-0.59) H 12/11/24 Eosinophils # (Auto) 0.17 K/uL (0.00-0.50) 12/11/24 Basophils # (Auto) 0.03 K/uL (0.00-0.20) 12/11/24 Immature Granulocyte # (Auto) 0.02 K/uL (0.01-0.20) 5 Na 135 mmol/L (136-145) L 12/12/24 K 3.6 mmol/L (3.5-5.1) 12/12/24 Cl 105 mmol/L (98-107) 12/12/24 CO2 24 mmol/L (21-32) 12/12/24 Anion Gap 6 (3-11) 12/12/24 BUN 5 mg/dl (6-23) L 12/12/24 Creatinine 0.50 mg/dl (0.6-1.2) L 12/12/24 BUN/Creatinine Ratio 10.0 (10-20) 12/12/24 Glu 112 mg/dl (70-99(Fasting)) H 12/12/24 Ca 8.5 mg/dl (8.6-10.3) L 12/12/24 Total Bilirubin 0.4 mg/dl (0.2-1.0) 12/11/24 AST 25 U/L (13-39) 12/11/24 ALT 12 U/L (7-52) 12/11/24 Alkaline Phosphatase 63 U/L (34-104) 12/11/24 TP 7.6 gm/dl (6.0-8.3) 12/11/24 Albumin 4.3 gm/dl (3.4-5.0) 12/11/24 Globulin 3.3 gm/dl (2.5-4.0) 12/11/24 Albumin/Globulin Ratio 1.3 (0.9-2) 12/11/24 Mg 1.7 mg/dl (1.7-2.4) 12/11/24 16:46 Calcium Level 8.5 mg/dl (8.6-10.3) L 12/12/24 04:48 Prothromb Time International Ratio 1.0 (0.9-1.1) 12/11/24 19:1 1 Diagnostic Findings (Past 24 Hours) Chest X-Ray 12/11/24 16:26 Chest radiograph, one view History: Chest pain Comparison: 04/11/2024 Findings: Single AP view of the chest performed. No focal consolidation or pleural effusion. No pneumothorax. The cardiomediastinal silhouette is within normal limits. Normal pulmonary vascularity. No evidence for lymphadenopathy. No visualized bony or soft tissue abnormality. Impression: Normal chest radiograph Electronically signed by Keon Dempsey 12-11-2024 5:17 PM Chest CTA 12/11/24 18:23 EXAM: CT angio chest PE protocol CLINICAL HISTORY: Trop 700 going to back. TECHNIQUE: Contiguous 3.[address] angiographic images of the chest were acquired with the administration of intravenous contrast. Coronal and sagittal reconstructions were obtained. 118 cc opti 320 was administered for post-contrast images. One of these 3D techniques was utilized: Maximum Intensity Pixel (MIP), 3D Reconstructed Images, Volume Rendered Images, Surface Shaded Rendering. One of the following dose reduction techniques were utilized for this exam: Automated exposure control, adjustment of the mA and/or kV according to patient size, and use of iterative reconstruction. CTDI: 40.1 mGy. DLP: 889.38 mGy-cm. COMPARISON: CT dated 04/11/2024. FINDINGS: Aorta: The thoracic aorta is normal in caliber. No evidence of aneurysm, dissection, or significant atherosclerotic changes. Aortic arch and descending thoracic aorta are unremarkable. Pulmonary Arteries: Pulmonary arteries are normal in size and opacification. No evidence of pulmonary embolism. No stenosis or filling defects. Superior Vena Cava (SVC) and Inferior Vena Cava (IVC): Normal opacification and caliber. No evidence of thrombus or obstruction. Coronary Arteries: Coronary arteries are well-opacified. No significant stenosis or atherosclerotic changes. Mediastinum: No mediastinal mass or lymphadenopathy. Normal appearance of the thymus. Heart: Normal size and morphology of the heart. No pericardial effusion. Lungs: 5 mm calcified pulmonary nodule is seen in the right lower lung lobe image 32. No evidence of consolidation or masses. No pleural effusion or thickening. Bones: No fractures or lytic/sclerotic lesions of the visualized bony structures. Normal alignment and bone density. Soft Tissues: Normal appearance of the visualized soft tissues. No abnormal masses or fluid collections. Cholecystectomy [place]. IMPRESSION: 1. No evidence of pulmonary embolism or other significant vascular abnormality. 2. Right lower lobe calcified pulmonary nodule likely granulomatous. 3. Cholecystectomy. Electronically signed by Serjio Slater 12-11-2024 7:36 PM I & O Totals 24 Hours 12/11/24 12/12/24 12/13/24 06:59 06:59 06:59 Intake Total 612.433 / 612.433 73.467 / 73.467 Output Total 750 / 750 Balance -137.567 / -137.567 73.467 / 73.467 Cumulative 12/11/24 16:15 thru 12/12/24 07:07 Intake Total 685.900 Output Total 750 Balance -64.100 RT Ventilator Mngmt (Last Documented) Ventilator Ordered Settings Respiratory Rate 18 12/12/24 09:03 Ventilator - PT Measurements Respiratory Rate 18 Coding Level of Care Code 08707 SUB INP/OBS CARE 2/35MIN Diagnoses ACS (acute coronary syndrome) I24.9 Stented coronary artery Z95.5 Obesity E66.9
--- NOTE | 2024-12-12 10:35 | Hospitalist Progress Note ---
Date of Service December 12, 2024 Assessment & Plan (1) ACS (acute coronary syndrome): (2) Hypokalemia: Plan 34-year-old female with history of migraine headache and obesity presenting for chest pain starting at 0400 the day of arrival. ED evaluation reveals no leukocytosis, H&H 11.7/36.3; PT/INR WNL; CMP potassium 3.2, BUN/creatinine ratio 9.5; troponin 778.5, pending repeat; CXR WNL; chest CTA without evidence of PE, but does reveal RLL calcified pulmonary nodule likely granulomatous and evidence of cholecystectomy; initial EKG sinus rhythm first-degree AV block and LAD as well as nonspecific ST/T wave abnormality (1635) and second EKG sinus rhythm first-degree AV block and LAD, LVH with repolarization abnormality, but appearing to have T wave abnormalities throughout (184). Heart alert was called. Patient placed on heparin drip and received nitroglycerin and aspirin in ED. #ACS Chest pain starting at 0400 awakening her from sleep, worsening around 1400 and radiating to back; sharp and stabbing pain that comes and goes, approx. 15 min apart at time of arrival; no h/o cardiac disease or recent URI/illness. No smoking history. Hypertensive on arrival but no know dx of HTN aside from this reading. 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 Defer management of electrolytes to ICU VTE Prophylaxis - IV heparin Diet - heart healthy Disposition - continue in the ICU, discussed with Dr Wolf, if stable overnight can be transferred out in the morning Admission and Anticipated Discharge Date Admission Date: December 11, 2024 Subjective No chest pain overnight or currently. Not yet been out of bed since cardiac catheterization. Mild pain over the right femoral site but no overt bleeding or hematoma. Physical Exam Constitutional: well developed and + morbidly obese; no acute distress Respiratory: normal respiratory effort, lungs clear to auscultation Cardiovascular: RRR, no murmur, no edema Gastrointestinal (Abdomen): normal bowel sounds, soft, nontender, no hepatosplenomegaly Skin: no rashes, warm and dry No hematoma seen over the right femoral or right radial catheter insertion sites Results & Data Results & Data Vital Signs (Past 12 Hours) Vital Signs Temp Pulse Pulse Resp BP BP Pulse Ox 12/12/24 09:03 104 H 18 99 12/12/24 09:00 130/96 12/12/24 08:45 98 H 27 H 99 12/12/24 08:00 116/92 12/12/24 08:00 91 H 20 99 12/12/24 07:02 149/76 H 12/12/24 07:00 78 20 99 12/12/24 07:00 126/97 12/12/24 06:00 78 17 122/93 97 12/12/24 05:00 82 20 132/97 97 12/12/24 04:08 36.9 C 74 17 142/103 H 99 12/12/24 03:01 77 21 120/82 100 12/12/24 02:01 82 21 136/111 H 99 12/12/24 00:45 65 11 L 100 12/12/24 00:33 66 13 100 12/12/24 00:30 164/106 H 12/12/24 00:30 164/106 H 12/12/24 00:30 164/106 H 12/12/24 00:30 164/106 H 12/12/24 00:30 164/106 H 12/12/24 00:30 164/106 H 12/12/24 00:30 164/106 H 12/12/24 00:30 164/106 H 12/12/24 00:30 68 10 L 164/106 H 100 12/12/24 00:02 153/114 H 12/12/24 00:00 63 12 182/109 H 100 12/12/24 00:00 69 12/11/24 23:45 67 13 173/97 H 100 12/11/24 23:30 63 14 165/108 H 100 12/11/24 23:30 36.5 C 71 20 145/103 H 100 12/11/24 23:15 140/99 12/11/24 23:15 64 16 125/102 H 100 12/11/24 23:00 66 18 147/109 H 99 12/11/24 22:45 36.5 C 68 14 145/103 H 99 O2 Del Method 03/20/25 09:03 12/12/24 09:00 12/12/24 08:45 12/12/24 08:00 12/12/24 08:00 12/12/24 07:02 12/12/24 07:00 12/12/24 07:00 12/12/24 06:00 Room Air 12/12/24 05:00 Room Air 12/12/24 04:08 Room Air 12/12/24 03:01 Room Air 12/12/24 02:01 Room Air 12/12/24 00:45 12/12/24 00:33 12/12/24 00:30 12/12/24 00:30 12/12/24 00:30 12/12/24 00:30 12/12/24 00:30 12/12/24 00:30 12/12/24 00:30 12/12/24 00:30 12/12/24 00:30 Room Air 12/12/24 00:02 12/12/24 00:00 Room Air 12/12/24 00:00 12/11/24 23:45 Room Air 12/11/24 23:30 Room Air 12/11/24 23:30 Room Air 12/11/24 23:15 12/11/24 23:15 12/11/24 23:00 12/11/24 22:45 PG Care Time/CCT Total # of Minutes Spent Total Time Spent with Patient: Total time spent is greater than 50% in coordination of care (as documented) at patient's floor/unit and/or counseling patient: Coding Level of Care Code 99438 SUB INP/OBS CARE 2/35MIN Diagnoses ACS (acute coronary syndrome) I24.9 Hypokalemia E87.6
--- NOTE | 2024-12-12 12:19 | XCELERA ---
[id number]
[2024-12-12] MEDS: ACETAMINOPHEN 325 MG TAB PO PRN (19:21)
--- NOTE | 2024-12-12 19:34 | Cardiology Progress Note ---
Date of Service December 12, 2024 Assessment & Plan (1) ACS (acute coronary syndrome): Plan: Patient's troponin peaked at just over 2200 which is frankly a modest elevation. Her echo is also supported with a modest injury to the myocardium. Her lipid panel is excellent without any medications and she has no atherosclerosis outside of the area which we treated. Taken as a whole, I suspect her distally occluded vessel became so because of spontaneous coronary dissection. She fits the age and gender as well as having very elevated blood pressures. In any case, I anticipate she will recover well. We will complete 48 hours of heparin drip and she will remain on the dual antiplatelet therapy. I have also told her that we will limit her physical activity for a longer period than we typically would for a straightforward PCI. She does intend to travel by air in about 3 weeks. I warned her against any heavy lifting or vigorous physical activities but she should be okay to travel under those restrictions. I also recommend that she investigate local hospitals just in case she has any problems. After 24 hours in the ICU she will be appropriate for transfer to intermediate care unit. (2) Stented coronary artery: Plan: Fairly decent angiographic results. Good ANN flow post PCI. She will complete 48 hours of heparin drip and I recommend she remain on dual antiplatelet therapy for minimum of 1 year and preferably up to 2 years. We will limit her lifting to less than 5 pounds for 1 week and then less than 20 pounds for an additional 3 weeks. Will also restrict her physical activity to exclude vigorous exercise or physical work. (3) Hypertensive urgency: Plan: Blood pressure was at target this morning but has crept up during the day as she has gotten up and around the room. This suggests that she could benefit from up titration of her medical regimen. (4) Atherogenic dyslipidemia: Plan: Patient has a history of gestational diabetes but her lipid panel is excellent at this time. I will keep her on a atorvastatin 20 mg daily for now but it may be that if she continues to exercise, lose weight, and keep her blood sugars normal that she may not require long-term statin therapy at this age. Her hemoglobin A1c suggests she is currently prediabetic. Plan Complete heparin drip for 48 hours. Continue current meds. Tomorrow we will increase her activity to include ambulating the hallways. If her groin discomfort worsens, she develops a new mass, or she has back pain then we will need to send her for imaging to exclude retroperitoneal bleed, or pseudoaneurysm. Admission and Anticipated Discharge Date Admission Date: December 11, 2024 Subjective Saw the patient in the ICU today. She did well overnight. No further chest discomfort. She does have pain at the right groin access site both with palpation and upon standing. No radiation to the back. She has not felt any "pop" when standing and while sitting she is completely comfortable. Her echocardiogram was performed demonstrating favorable results. Low normal EF and only a small area of wall motion abnormality corresponding to the distal ramus disease. Good chance she will fully recover from this. She voices no other complaints or concerns at this time. Review of Systems Review of Systems: Negative except as per HPI Physical Exam Constitutional: WD/WN, vitals as above Eyes: Extraocular muscles intact, sclera are anicteric ENMT: Oral mucosa is pink moist and intact Neck: No JVD Respiratory: Clear to auscultation bilaterally. No wheezing, rhonchi, or rales Cardiovascular: Regular rate and rhythm. Distant heart sounds. Do not appreciate any rubs or murmurs. No edema. Musculoskeletal: no cyanosis or clubbing, extremities motor strength 5/5 Neurologic: Cognition is intact. Speech is fluent. No focal deficits. Psychiatric: A+Ox3, euthymic affect Results & Data Vital Signs (Past 12 Hours) Vital Signs Pulse Resp BP Pulse Ox 12/12/24 16:00 82 12/12/24 11:45 147/84 H 12/12/24 11:42 80 17 99 12/12/24 11:30 153/86 H 12/12/24 11:24 82 23 92 12/12/24 11:15 78 16 99 12/12/24 11:02 158/82 H 12/12/24 11:00 97 12/12/24 10:10 131/74 12/12/24 10:09 80 25 H 100 12/12/24 10:03 87 20 98 12/12/24 10:00 110/77 12/12/24 09:03 104 H 18 99 12/12/24 09:00 130/96 12/12/24 08:45 98 H 27 H 99 12/12/24 08:00 79 12/12/24 08:00 116/92 12/12/24 08:00 91 H 20 99 PG Care Time/CCT Total # of Minutes Spent Total Time Spent with Patient: Total time spent is greater than 50% in coordination of care (as documented) at patient's floor/unit and/or counseling patient: Coding Level of Care Code 33631 SUB INP/OBS CARE 3/50MIN Diagnoses ACS (acute coronary syndrome) I24.9 Stented coronary artery Z95.5 Hypertensive urgency I16.0 Atherogenic dyslipidemia E78.5
[2024-12-12 22:48] LABS: Basophils # (auto) 0.04 K/uL (0.00-0.20); Basophils % (auto) 0.4 %; Eosinophils # (auto) 0.23 K/uL (0.00-0.50); Eosinophils % (auto) 2.2 %; Hematocrit (blood only) 35.2 % (37.0-47.0); Hemoglobin 11.3 g/dl (12.0-16.0); Immature Granulocytes # (auto) 0.03 K/uL (0.01-0.20); Immature Granulocytes % (auto) 0.3 %; Lymphocytes # (auto) 2.35 K/uL (1.20-3.40); Lymphocytes % (auto) 22.8 %; Mean Corpuscular Hemoglobin 24.6 pg (25.0-34.0); Mean Corpuscular Hgb Conc 32.1 g/dL (32.0-36.0); Mean Corpuscular Volume 76.5 fL (80.0-100.0); Monocytes # (auto) 0.83 K/uL (0.11-0.59); Monocytes % (auto) 8.1 %; Neutrophils # (auto) 6.81 K/uL (1.40-6.50); Neutrophils % (auto) 66.2 %; Platelet Count 249 K/uL (130-400); RDW Coefficient of Variation 15.7 % (11.5-14.5); RDW Standard Deviation 43.2 fL (36.4-46.3); White Blood Count 10.29 K/ul (4.8-10.8)
[2024-12-13 05:26] LABS: BUN Creatinine Ratio 11.1 (10-20); Calcium 8.9 mg/dl (8.6-10.3); Creatinine Clr Calc Pharmacy 183.5 ml/min; Magnesium 1.8 mg/dl (1.7-2.4); Potassium 3.7 mmol/L (3.5-5.1)
[2024-12-13 05:42] LABS: ANTI-Xa, UFH(UnfractionatedHep 0.23 IU/ml (0.3-0.7)
--- NOTE | 2024-12-13 07:22 | Critical Care Progress Note ---
Date of Service December 13, 2024 Assessment & Plan (1) Obesity: (2) ACS (acute coronary syndrome): (3) Hypokalemia: (4) Morbid obesity: Plan Reason Critically Ill: 34 YOF presents with chest pain- concern for ACS and taken to the lab courier. Patient received 3 CESIA to the Circ and concern for coronary artery dissection. Neuro - No acute needs CAM ICU: Negative Cardiac - ACS, Stent x3 to Circ, coronary artery dissection (believed to be spontaneous) -Continue with dual antiplatelet therapy Currently on aspirin and Brilinta along with metoprolol 2D echo 12/12/2024: EF 50-55%, grade 1 diastolic dysfunction, severe hypokinesis of the mid and distal lateral mild cardio, normal RV size and function Respiratory - No acute needs GI - No acute needs - obesity- she is on Zepbound for this RENAL/LYTES - No acute needs - ICU electrolyte protocol - No acute needs - follow for any retention ENDO - No acute needs HEME - No acute needs - Heparin infusion as above- ID - No concerns for infective cause at this time LINES/IV ACCESS - PIV Continue use of these lines --Prophylaxis VTE: Heparin drip GI: None Lines: Peripheral Diet: Cardiac Plan: In/out: +1 L Continue with dual antiplatelet therapy Potassium being replaced Hemodynamically stable to be downgrade to medical floor Disposition as per cardiology and primary team Please note the above document was generated using voice recognition software. It may contain grammatical, syntax or spelling errors.Any formal questions or concerns about the content, text or information contained within the body of this dictation should be directly addressed to the provider for clarification. Admission and Anticipated Discharge Date Admission Date: December 11, 2024 Subjective Patient seen and examined at bedside. No acute distress, no adverse events overnight Denies any chest pain, no shortness of breath Was having breakfast, no difficulty swallowing No unusual headache or blurry vision Afebrile Review of Systems 2 Review of Systems: All systems reviewed & are unremarkable except as noted in Subjective Physical Exam 2 Physical Exam: Constitutional: No acute distress HEENT: EOMI, PERRLA Respiratory system: Good air entry bilaterally, no wheeze, no rhonchi, no crackles CVS: S1-S2 positive, no murmurs or gallops Abdomen: Soft, nontender, nondistended, positive bowel sounds x4, obese Extremities: +2 pulses bilaterally radialis/ dorsalis pedis, no cyanosis, no edema Neuro: Awake alert oriented x3 Psych: Normal mood and affect G/U: No [place] Skin: no rashes, warm and dry Lymphatic: no cervical or axillary lymphadenopathy Results & Data Results & Data Vital Signs (Past 12 Hours) Vital Signs Temp Pulse Resp BP Pulse Ox 12/13/24 06:03 77 21 95 12/13/24 06:00 103/77 12/13/24 05:54 69 16 97 12/13/24 05:03 73 18 97 12/13/24 05:00 110/85 12/13/24 04:48 73 18 98 12/13/24 04:03 76 19 96 12/13/24 04:00 114/82 12/13/24 03:54 72 17 97 12/13/24 03:22 126/88 12/13/24 03:15 82 11 L 95 12/13/24 03:00 73 100 12/13/24 02:03 72 18 96 12/13/24 02:00 115/87 12/13/24 00:00 72 12/13/24 00:00 104/71 12/13/24 00:00 36.8 C 75 19 96 12/12/24 23:03 91 H 15 95 12/12/24 23:00 114/89 12/12/24 22:57 96 H 20 97 12/12/24 22:06 97 H 16 97 12/12/24 22:00 123/81 12/12/24 21:47 107/85 12/12/24 21:42 85 14 99 12/12/24 21:03 86 27 H 100 12/12/24 20:20 130/98 12/12/24 20:06 90 18 98 12/12/24 19:55 37.2 C 16 12/12/24 19:48 96 H 18 96 12/12/24 19:46 158/92 H 12/12/24 19:46 158/92 H 12/12/24 19:46 158/92 H 12/12/24 19:46 158/92 H Laboratory Results 12/12/24 22:28 12/13/24 04:52 Coding Level of Care Code 20396 SUB INP/OBS CARE 2/35MIN Diagnoses Obesity E66.9 ACS (acute coronary syndrome) I24.9 Hypokalemia E87.6 Morbid obesity E66.01
[2024-12-13] MEDS: POTASSIUM CHLORIDE CRTAB 20 MEQ TABCR PO STA (07:55)
[2024-12-13] MEDS: MAGNESIUM SULFATE / D5W 1 GM/100 ML BAG IV SCH (07:56)
[2024-12-13 07:57] LABS: Phosphorus 3.3 mg/dl (2.5-4.9)
--- NOTE | 2024-12-13 09:28 | Hospitalist Progress Note ---
Date of Service December 13, 2024 Assessment & Plan (1) ACS (acute coronary syndrome): (2) Hypokalemia: Plan 34-year-old female with history of migraine headache and obesity presenting for chest pain starting at 0400 the day of arrival. ED evaluation reveals no leukocytosis, H&H 11.7/36.3; PT/INR WNL; CMP potassium 3.2, BUN/creatinine ratio 9.5; troponin 778.5, pending repeat; CXR WNL; chest CTA without evidence of PE, but does reveal RLL calcified pulmonary nodule likely granulomatous and evidence of cholecystectomy; initial EKG sinus rhythm first-degree AV block and LAD as well as nonspecific ST/T wave abnormality (163) and second EKG sinus rhythm first-degree AV block and LAD, LVH with repolarization abnormality, but appearing to have T wave abnormalities throughout (1840). Heart alert was called. Patient placed on heparin drip and received nitroglycerin and aspirin in ED. 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 Defer management of electrolytes to ICU VTE Prophylaxis - IV heparin Diet - heart healthy Disposition - stable for transfer to PCU Admission and Anticipated Discharge Date Admission Date: December 11, 2024 Anticipated date of discharge: 12/14/24 Subjective No further chest pain, doing well. Femoral pain catheter insertion site improving. Physical Exam Constitutional: well developed and + morbidly obese; no acute distress Respiratory: normal respiratory effort, lungs clear to auscultation Cardiovascular: RRR, no murmur, no edema Gastrointestinal (Abdomen): normal bowel sounds, soft, nontender, no hepatosplenomegaly Skin: no rashes, warm and dry Results & Data Results & Data Vital Signs (Past 12 Hours) Vital Signs Temp Pulse Resp BP Pulse Ox 12/13/24 06:03 77 21 95 12/13/24 06:00 103/77 12/13/24 05:54 69 16 97 12/13/24 05:03 73 18 97 12/13/24 05:00 110/85 12/13/24 04:48 73 18 98 12/13/24 04:03 76 19 96 12/13/24 04:00 114/82 12/13/24 03:54 72 17 97 12/13/24 03:22 126/88 12/13/24 03:15 82 11 L 95 12/13/24 03:00 73 100 12/13/24 02:03 72 18 96 12/13/24 02:00 115/87 12/13/24 00:00 72 12/13/24 00:00 104/71 12/13/24 00:00 36.8 C 75 19 96 12/12/24 23:03 91 H 15 95 12/12/24 23:00 114/89 12/12/24 22:57 96 H 20 97 12/12/24 22:06 97 H 16 97 12/12/24 22:00 123/81 12/12/24 21:47 107/85 12/12/24 21:42 85 14 99 PG Care Time/CCT Total # of Minutes Spent Total Time Spent with Patient: Total time spent is greater than 50% in coordination of care (as documented) at patient's floor/unit and/or counseling patient: Coding Level of Care Code 94445 SUB INP/OBS CARE 2/35MIN Diagnoses ACS (acute coronary syndrome) I24.9 Hypokalemia E87.6
--- NOTE | 2024-12-13 12:28 | Cardiac Catheterization ---
ACC Data: Proposal Specialist Cardiac Status Clinical evaluation leading to the procedure CAD Presenation: Non STEMI Anginal Classification: CCS IV Heart Failure: No Cardiogenic Shock within 24 Hours: No Cardiac Arrest within 24 Hours: No Imaging Studies Past 6 Months: No Stress Studies Past 6 Months: No STEMI OR Non-STEMI Symptom Onset Date: 12/11/24 Symptom Onset Time: 04:00 Thrombolytics: No Coronary Anatomy Dominant: Right Left Main (% Stenosis): Normal LAD (% Stenosis): Normal D1 (% Stenosis): Normal Circumflex (% Stenosis): Normal L PL1 (% Stenosis): Normal RCA (% Stenosis): Normal R PDA (% Stenosis): Normal R PL1 (% Stenosis): Normal Ramus (% Stenosis): Distal (99%) Diagnostic Physicians Name: Jose David Murillo MD, PhD Closure Device Percutaneous Entry Location: Radial then femoral Closure Device: Angio-Seal and Radial Band Recommendations: Medical Therapy and/or Counseling and PCI without planned CABG PCI Indication: PCI for high risk Non-DAVIDSON Lesion Segment Name: Distal ramus Culprit Artery: Yes Stenosis Prior to Rx (%): 99% Chronic Total Occlusion: No Pre-Procedure ANN Flow: 2 Previously Treated Lesion: No Lesion Complexity: High/C Lesion Length (mm): 23 Thrombus Present: No Bifurcation Lesion: Yes Guidewire Across Lesion: Yes Intraprocedure Events Significant Disection: No Perforation: No Cardiac Cath Procedure Full Procedure Date December 11, 2024 Pre-Procedure Diagnosis Pre-Procedure Diagnosis: Non STEMI AUC Score AUC Score: 08 Post-Procedure Diagnosis Post-Procedure Diagnosis: Severe CAD and Successful PCI Procedure(s) Performed Procedure(s) Performed: Coronary Angiography, Drug Eluting Stent and Ultrasound Guided Vascular Access Latent Fingerprint Examiner Jose David Murillo MD, PhD Estimated Blood Loss Estimated Blood Loss: 15 cc Medication(s) Medication(s): Fentanyl, Heparin, Lidocaine 1%, Nicardipine, Nitroglycerin and Versed Summary of Findings Brief description: Patient was brought emergently to the cardiac catheterization suite where she was shaved and prepped in a sterile fashion. She was sedated using IV Versed and fentanyl. Soft tissues of the right wrist were anesthetized using 2 mL of 1% Xylocaine. The right radial artery was accessed using a modified Seldinger technique and a 6 [place] radial artery glide sheath was placed. Patient was provided anticoagulation with IV heparin and antispasmodics including nicardipine and nitroglycerin. All catheters were advanced and exchanged over a 0.035 J-tip wire. Left coronary angiography in orthogonal views a 5 [place] 4 diagnostic catheter. Right coronary angiography in orthogonal views a 5 [place] 4 diagnostic catheter. Diagnostic catheters were removed. Decision was made to proceed with PCI of the ramus. A 6 [place] EBU guide catheter was attempted to advance through the radial artery but the patient has significant pain and vasospasm. We could not advance the catheter past the elbow. Despite additional sedation and antispasmodics multiple attempts were unsuccessful. We also tried a 5 [place] JL 3.5 guide catheter and a Yoly wire but were still unsuccessful. Eventually, we decided to abandon further attempts via the radial artery and moved to the femoral artery approach. Soft tissue the right groin were anesthetized using 10 mL of 1% Xylocaine. Using ultrasound for guidance (image saved), multiple attempts were used to attempt to access the right femoral artery. This included several different length needles. Eventually, we were successful in accessing the vessel and a 0.035 J-tip wire was advanced through the needle. This was then exchanged for a long (25 cm) 6 [place] femoral artery sheath. PCI undertaken using a 6 [place] EBU 3.5 guide catheter. A BMW universal guidewire was advanced and positioned distal to the lesion in the ramus. The lesion was predilated with a 2.5 x 12 mm trek balloon inflated twice to 8 carmelo. Implantation of a 2.5 x 26 mm [place] drug-eluting stent across the lesion at 12 carmelo. Medical Record Assistant angiography performed. Small residual lesion just after the ostium of the branch vessel. Therefore, a 2.5 x 8 mm Alejandro drug-eluting stent was advanced over the guidewire to cover this area (proximal edge just after ostium and distal edge within the proximal portion of the first stent) and deployed at 13 carmelo. Medical Record Assistant angiography was performed. Some luminal irregularity extending before the ostium of the branch vessel occurring at the "knuckle". Decision made to implant additional stent. A 2.5 x 15 mm [place] drug-eluting stent was advanced and positioned with its distal portion within the proximal portion of the second stent covering the ostium of the branch vessel and the proximal edge of the stent just after the "knuckle" in the vessel. Deployed at 13 carmelo. We attempted to advance a noncompliant balloon to post dilate the proximal stent, however, the "knuckle" prohibited advancement of the balloon (likely secondary to added stiffness from the stent) and we therefore abandoned attempt for postdilatation. Noncompliant balloon was removed. Guidewire was removed and final angiographic evaluation was performed. The guide catheter was then removed. Limited right femoral artery angiography was performed to evaluate for closure. First, the 25 cm femoral sheath was exchanged over the J-wire for an 11 cm sheath. Then, the angiography was performed and findings were favorable for closure. Therefore, the femoral artery sheath was exchanged for a 6 [place] Angio-Seal closure device. This was deployed in the recommended fashion. Patient remained hemodynamically stable and was asymptomatic. She was therefore admitted to the ICU for further workup and management. She did receive Brilinta 180 mg. Coronary angiography findings: KXC-[place] vessel trifurcating into LAD, circumflex, and ramus. No disease. JLG-ouipu-yctnuzu and transapical gives 2 septal branches and a large diagonal. No disease. LCx-medium caliber and nondominant. Travels in the AV groove terminating in a small posterolateral branch. Ramus, this is very large caliber and branches distally. There is a 99% smooth contoured lesion just after the first branch and then there are irregular/eccentric continuation before the second branch. No thrombus. A short distance prior to the first branch the ramus vessel has a "knuckle" and this is hyperdynamic with ventricular contraction. The lesion distally is the culprit for presentation. ANN II flow. RCA-this is large caliber and dominant. Has limited [place] takeoff from the ostium and then continues distally where it bifurcates into a large PDA and a large branching posterolateral. The RCA and its branches have no disease. PCI of ramus-0% residual stenosis post PCI with implantation of 3 overlapped drug-eluting stents ANN-3 flow post PCI No evidence of dissection or perforation post PCI The proximal edge of the most proximal stent lies right at the distal edge of the "knuckle". This appears irregular but there is no flow limitation. No thrombus. Summary: 1. Severe stenosis of the distal ramus. Unclear if this represents atherosclerotic stenosis or spontaneous coronary dissection with stenosis caused by intramural hematoma in the vessel. The remainder of the patient's vessels are without disease. 2. Successful PCI with implantation of 3 overlapped drug-eluting stents. 3. Patient is placed on aspirin 81 mg daily and Brilinta 90 mg p.o. twice daily. Also, because of the irregular look at the proximal edge of the proximal stent we have decided to keep the patient on heparin drip for 48 hours. 4. Guideline directed medical therapy for secondary prevention of coronary artery disease to include low-dose aspirin, statin, and beta-avelina. Hemodynamics Rest Ao:: 144/113 mmHg Final Ao: 180/108 mmHg LV: Not performed Recommendations Recommendations: Medical Therapy and/or Counseling and PCI without planned CABG Radiation Exposure (mGy) 2935 mGy Contrast (mls) 295 cc Anesthesia Fentanyl 125 mcg, Versed 3 mg IV. Start 2032, end 2217 Procedural Complication(s) None Disposition ICU I attest to the content of the Intraoperative Record and any orders documented therein. Any exceptions are noted below. [facility] Card Cath Procedure Codes Cardiac Catheterization Procedure 1: Cardiovascular Cath Procedures: 57448 Coronaries Therapeutic Services & Ancillary Procedure 1: Cardiovascular Tx and Anc Procedures: 70424 Ultrasonic Guidance Vascular Access Moderate Sedation Procedure 1: Sedation/Anesthesia: 25245 Mod Sedation by the same physician;Init15 Min Child Age 5 & Up (Initial 15 minutes, start 2032) Procedure 2: Sedation/Anesthesia: 67426 Mod Sedation by the same physician; Ea [id number] Minutes (Additional 90 minutes, end time 2217) Stenting Procedure 1: Cardiovascular Stent Procedures: 24644 Perc transluminal revascularization of acute sub/total occl, aMI ([place]) PG Care Time/CCT Total # of Minutes Spent Total Time Spent with Patient: Total time spent is greater than 50% in coordination of care (as documented) at patient's floor/unit and/or counseling patient:
[2024-12-13 13:46] LABS: ANTI-Xa, UFH(UnfractionatedHep 0.13 IU/ml (0.3-0.7)
[2024-12-13] MEDS: HEPARIN SOD (PORCINE) 1000 UNIT/ML IV SCH (14:46)
--- NOTE | 2024-12-13 17:51 | Cardiology Progress Note ---
Date of Service December 13, 2024 Assessment & Plan (1) Stented coronary artery: Plan: Fairly decent angiographic results. Good ANN flow post PCI. She has completed 48 hours of heparin drip. She will remain on dual antiplatelet therapy for minimum of 1 year and preferably up to 2 years. We will limit her lifting to less than 5 pounds for 1 week and then less than 20 pounds for an additional 3 weeks. Will also restrict her physical activity to exclude vigorous exercise or physical work. Her heart rate and blood pressure are at target. (2) Hypertensive urgency: Plan: Blood pressure is now adequately controlled. Continue current regimen. (3) Atherogenic dyslipidemia: Plan: Patient has a history of gestational diabetes but her lipid panel is excellent at this time. I will keep her on a atorvastatin 20 mg daily for now but it may be that if she continues to exercise, lose weight, and keep her blood sugars normal that she may not require long-term statin therapy at this age. Her hemoglobin A1c suggests she is currently prediabetic. Plan If patient remains stable overnight she would be appropriate for discharge tomorrow. I will have cardiology check on her prior to discharge. Admission and Anticipated Discharge Date Admission Date: December 11, 2024 Subjective Patient doing well at this time. No events. She states that her groin access site is less tender. She is able to walk around in the room. She has been transferred from the ICU to the intermediate care unit. No recurrence of chest pain and no dyspnea. She has a large number of visitors who are family. She voices no other complaints or concerns at this time. Review of Systems Review of Systems: Negative except as per HPI Physical Exam Constitutional: WD/WN, vitals as above Eyes: Extraocular muscles intact, sclera are anicteric ENMT: Oral mucosa is pink moist and intact Neck: No JVD Respiratory: Clear to auscultation bilaterally. No wheezing, rhonchi, or rales Cardiovascular: Regular rate and rhythm. Distant heart sounds. Do not appreciate any rubs or murmurs. No edema. Musculoskeletal: no cyanosis or clubbing, extremities motor strength 5/5 Neurologic: Cognition is intact. Speech is fluent. No focal deficits. Psychiatric: A+Ox3, euthymic affect Results & Data Vital Signs (Past 12 Hours) Vital Signs Temp Pulse Pulse Resp BP BP BP 12/13/24 15:19 36.8 C 85 19 109/74 12/13/24 14:27 79 12/13/24 10:38 80 12/13/24 10:27 36.6 C 76 16 136/66 12/13/24 09:00 82 17 12/13/24 09:00 114/85 12/13/24 08:12 89 13 12/13/24 08:05 105/86 12/13/24 08:00 76 12/13/24 07:39 94 H 17 12/13/24 07:06 73 17 12/13/24 07:00 115/85 12/13/24 06:03 77 21 12/13/24 06:00 103/77 12/13/24 05:54 69 16 Pulse Ox O2 Del Method 12/13/24 15:19 100 Room Air 12/13/24 14:27 12/13/24 10:38 12/13/24 10:27 100 Room Air 12/13/24 09:00 98 12/13/24 09:00 12/13/24 08:12 12/13/24 08:05 12/13/24 08:00 12/13/24 07:39 12/13/24 07:06 97 12/13/24 07:00 12/13/24 06:03 95 12/13/24 06:00 12/13/24 05:54 97 PG Care Time/CCT Total # of Minutes Spent Total Time Spent with Patient: Total time spent is greater than 50% in coordination of care (as documented) at patient's floor/unit and/or counseling patient: Coding Level of Care Code 03138 SUB INP/OBS CARE 10/19MIN Diagnoses Stented coronary artery Z95.5 Hypertensive urgency I16.0 Atherogenic dyslipidemia E78.5
[2024-12-13 23:25] LABS: Basophils # (auto) 0.05 K/uL (0.00-0.20); Basophils % (auto) 0.5 %; Eosinophils # (auto) 0.21 K/uL (0.00-0.50); Eosinophils % (auto) 2.1 %; Hematocrit (blood only) 33.1 % (37.0-47.0); Hemoglobin 10.7 g/dl (12.0-16.0); Immature Granulocytes # (auto) 0.03 K/uL (0.01-0.20); Immature Granulocytes % (auto) 0.3 %; Lymphocytes # (auto) 2.33 K/uL (1.20-3.40); Mean Corpuscular Hemoglobin 24.6 pg (25.0-34.0); Mean Corpuscular Hgb Conc 32.3 g/dL (32.0-36.0); Mean Corpuscular Volume 76.1 fL (80.0-100.0); Mean Platelet Volume 10.8 fL (9.4-12.4); Monocytes # (auto) 0.86 K/uL (0.11-0.59); Monocytes % (auto) 8.5 %; Neutrophils # (auto) 6.65 K/uL (1.40-6.50); Neutrophils % (auto) 65.6 %; Platelet Count 228 K/uL (130-400); RDW Coefficient of Variation 15.8 % (11.5-14.5); RDW Standard Deviation 43.2 fL (36.4-46.3); Red Blood Count 4.35 M/uL (4.20-5.40); White Blood Count 10.13 K/ul (4.8-10.8)
[2024-12-14 07:06] VITALS: RESP 20; O2SAT 98
[2024-12-14 08:14] LABS: BUN Creatinine Ratio 12.3 (10-20); Creatinine Clr Calc Pharmacy 171.5 ml/min; Potassium 4.3 mmol/L (3.5-5.1)
--- NOTE | 2024-12-14 11:16 | Cardiology Progress Note ---
Date of Service December 14, 2024 Assessment & Plan (1) Stented coronary artery: Plan: Okay for discharge on aspirin and clopidogrel, as per Dr. Murillo minimum of 1 year and preferably 2 years on dual antiplatelet therapy. Cautioned patient regarding minimizing physical activity, in particular avoiding lifting weight as per Dr. Murillo's parameters. Also instructed in using compression and seeking assistance of any evidence of right groin access site bleeding. (2) Hypertensive urgency: Plan: BP normotensive on amlodipine and metoprolol (could consolidate to metoprolol succinate 50 mg daily). (3) Atherogenic dyslipidemia: Plan: Continue atorvastatin. Other risk factors to be addressed as per Dr. Murillo. Admission and Anticipated Discharge Date Admission Date: December 11, 2024 Subjective No complaints. Uneventful night. Denies chest pain, dyspnea, or palpitations. No pain or bulging right femoral access site. Telemetry showed sinus rhythm. No dysrhythmias. Physical Exam Physical Exam: No distress. Afebrile. BP normotensive. Pulse 85 bpm regular. Respirations 20 but unlabored. Skin: no ecchymoses or generalized lesions. HEENT: unremarkable. Neck: JVP at the clavicle at 90 degrees, no carotid bruits. Lungs: clear. Cardiac: regular rhythm, normal S1-2, no murmur. Abdomen: benign. Right groin access site without hematoma or bleeding. Extremities: no edema, pulses intact. Neurologic: normal affect and conversation, nonfocal. Results & Data Vital Signs (Past 12 Hours) Vital Signs Temp Pulse Pulse Resp BP BP Pulse Ox 12/14/24 07:27 85 12/14/24 07:05 98.1 F 78 20 131/85 98 12/14/24 03:00 98.1 F 75 19 121/75 99 O2 Del Method 12/14/24 07:27 12/14/24 07:05 Room Air 12/14/24 03:00 Room Air Laboratory Results Sodium 134, otherwise normal electrolytes, BUN 7, creatinine 0.57 PG Care Time/CCT Total # of Minutes Spent Total Time Spent with Patient: Total time spent is greater than 50% in coordination of care (as documented) at patient's floor/unit and/or counseling patient: Coding Level of Care Code 20042 SUB INP/OBS CARE 2/35MIN Diagnoses Stented coronary artery Z95.5 Hypertensive urgency I16.0 Atherogenic dyslipidemia E78.5
[2024-12-14 11:37] VITALS: TEMP 98.4
--- NOTE | 2024-12-14 12:15 | Discharge Summary ---
Discharge Summary Date of Service December 14, 2024 Principal Dx & Hospital Course #1 = Principal Diagnosis (1) ACS (acute coronary syndrome): (2) Hypokalemia: Yudy Mckeon is a 34-year-old female with history of migraine headache and obesity presenting for chest pain starting at 0400 the day of arrival. She was diagnosed as an NSTEMI and heart alert called in the emergency room. She was taken for emergent cardiac catheterization with severe stenosis of the distal ramus and underwent successful PCI with implantation of 3 overlapping drug- eluting stents. Given her young age and appearance on catheterization she was suspected to most likely have a coronary artery dissection rather than atherosclerotic plaque. She was started on aspirin and Brilinta which she should carry on for minimum of 1 year. She was started on metoprolol to tartrate, amlodipine and atorvastatin by cardiology and she will follow-up as an outpatient Notes For Next Care Provider Follow-up with cardiology No specific PCP follow-up required Medication Changes From Visit Routine postcardiac catheterization medications started with aspirin, Brilinta, metoprolol tartrate, amlodipine and atorvastatin Admission HPI Per Admitting Provider 34-year-old female with history of migraine headache and obesity presenting for chest pain starting at 0400 the day of arrival. Patient states that 0400 the day of arrival, she was awoken from sleep for onset of central and sharp chest pain. States that the pain lasted approximately 1 hour and then was alleviated some. Patient reports that throughout the entirety of the day, the pain continued to come and go, was sharp in nature, and was in the central chest but would feel as though it was shooting to the back during episodes of pain. Episodes lasted approximately 1 hour and then would resolve for approximately an hour. Throughout the course the day, around 1400, patient states that the pain became more severe rating it a 7 out of 10 on the pain scale and then at 1500 the pain became more severe and patient decided that she needed to be evaluated. Patient states that she does have some SOB with increased breath and when the pain is most severe, but denying palpitations, abdominal pain, N/V, or diaphores is. Patient has no significant history and states that she has never had this happen before. Family history is significant for maternal grandfather who had coronary event, grandparent with hypertension, and diabetes within the family. Patient denies illicit drug use. No recent illness or URI symptoms. Patient states that she has had increased stress surrounding life events in her family. No history of smoking or tobacco use. Overall denying abdominal pain, N/V/D/C, LUTS, numbness/tingling, weakness, or fever/chills. ED evaluation reveals no leukocytosis, H&H 11.7/36.3; PT/INR WNL; CMP potassium 3.2, BUN/creatinine ratio 9.5; troponin 778.5, pending repeat; CXR WNL; chest CTA without evidence of PE, but does reveal RLL calcified pulmonary nodule likely granulomatous and evidence of cholecystectomy; initial EKG sinus rhythm first-degree AV block and LAD as well as nonspecific ST/T wave abnormality (1635) and second EKG sinus rhythm first-degree AV block and LAD, LVH with repolarization abnormality, but appearing to have T wave abnormalities throughout (184). Heart alert was called. Patient placed on heparin drip and received nitroglycerin and aspirin in ED. Please see Dr. Woods's attestation for adjustments/additions to treatment plan. Discharge Exam Constitutional well developed and + morbidly obese; no acute distress Respiratory normal respiratory effort, lungs clear to auscultation Cardiovascular RRR, no murmur, no edema Gastrointestinal (Abdomen) normal bowel sounds, soft, nontender, no hepatosplenomegaly Skin no rashes, warm and dry Discharge Plan Discharge Items Patient Disposition: Home - Self-Care Reason For Visit: STEMI Discharge Diagnosis: NSTEMI CAD s/p PCI hypertensive urgency Activity: Per Instructions section Non-emergency contact: Primary Care Provider and Specimen Collector Call non-emergency contact if: you have any medication questions, your symptoms worsen, your pain is not controlled, you have a fever, your wound has increased redness and your wound has increased drainage Follow-up/Referrals: Jose David Murillo MD, PhD [Physician] - Fatemeh Blake MD [Primary Care Provider] - Diet: Heart Healthy Addtl Attending Provider Instructions: ACTIVITY RECOMMENDATIONS: It is common to feel weak and fatigue for a few days. * Do not drive or operate any motorized equipment for the next three days. * Limit stair usage (2 or 3 trips a day only) for the next three days. * Do not lift anything heavier than 10 pounds for the next three days. * Do not engage in vigorous exercise or any sports for the next five days. * You may shower the day after your procedure, but do not immerse the area for three days. Cleanse the site gently with soap and water. SPECIAL CARE INSTRUCTIONS: * You may replace the pressure dressing or band-aid the morning after the procedure. * After your procedure, it is normal to have a small bruise or small lump at the site. Examine your site daily for any change in the bruise or lump, redness, swelling, drainage or numbness. Notify your doctor if any change. BLEEDING: * If there is a small amount of bleeding at the site, lie down and apply firm pressure with a clean cloth for ten minutes. When the bleeding stops, lie quietly keeping the procedure limb straight for six hours. Notify your doctor as soon as possible. * If the bleeding does not stop after ten minutes or if there is a large amount of bleeding or spurting, call 911 immediately. Continue to lie down and hold firm pressure until help arrives. SKIN IRRITATION: * You may experience some redness and/or swelling in the area where radiation was administered. If any skin irritation occurs, please contact your family physician. FOLLOW UP VISIT: Keep any scheduled doctor appointments. Pending Studies at Discharge: No Stand-Alone Forms: My [facility], Smoking Cessation Medications and DC Order Prescriptions: New atorvastatin 20 mg Tablet 20 mg PO QAM Qty: 90 3RF amlodipine [Norvasc] 5 mg Tablet 5 mg PO QAM Qty: 90 3RF aspirin 81 mg Tablet,Delayed Release (Dr/Ec) 81 mg PO QAM Qty: 90 3RF metoprolol tartrate 25 mg Tablet 25 mg PO BID Qty: 180 3RF Brilinta 90 mg Tablet 90 mg PO BID Qty: 180 3RF No Action No Known Home Medications Discharge Orders: Discharge Order (Routine); Ordered 12/14/24 Ordered By: Domingo Lopez Admission Data Admit Date/Time: 12/11/24 20:08 Attending Provider: Domingo Lopez Admit Provider: Dulce Woods Primary Care Provider: Fatemeh Blake Other Providers: Jose David Murillo Other Interventions: Discharge Summary Assessment (RN) Last Done: 12/14/24 12:30 Hospital Stay Data Consultations 12/11/24 20:05 ED Decision to Admit Stat 12/11/24 20:09 Consult Sap Technical Architect Routine 12/12/24 16:22 Consult Cardiology Routine Procedures Performed Operation Date: 12/11/24 20:00 Actual Procedures p Cineradiography w/Routine Exam - Jose David Murillo MD, PhD p Cath, Coronaries ONLY (no LV) - Jose David Murillo MD, PhD s Drug Eluting Stent SGl Vessel - Jose David Murillo MD, PhD Diagnostic Imagining Performed 12/11/24 18:23 CT angio chest PE protocol Stat IMPRESSION: 1. No evidence of pulmonary embolism or other significant vascular abnormality. 2. Right lower lobe calcified pulmonary nodule likely granulomatous. 3. Cholecystectomy. 12/11/24 20:06 CL Cath Imgs for PACS use only Stat Pending Results Patient Have Any Pending Studies at Discharge: No Discharge Instructions Given to Patient (Per Discharging Provider) ACTIVITY RECOMMENDATIONS: It is common to feel weak and fatigue for a few days. * Do not drive or operate any motorized equipment for the next three days. * Limit stair usage (2 or 3 trips a day only) for the next three days. * Do not lift anything heavier than 10 pounds for the next three days. * Do not engage in vigorous exercise or any sports for the next five days. * You may shower the day after your procedure, but do not immerse the area for three days. Cleanse the site gently with soap and water. SPECIAL CARE INSTRUCTIONS: * You may replace the pressure dressing or band-aid the morning after the procedure. * After your procedure, it is normal to have a small bruise or small lump at the site. Examine your site daily for any change in the bruise or lump, redness, swelling, drainage or numbness. Notify your doctor if any change. BLEEDING: * If there is a small amount of bleeding at the site, lie down and apply firm pressure with a clean cloth for ten minutes. When the bleeding stops, lie quietly keeping the procedure limb straight for six hours. Notify your doctor as soon as possible. * If the bleeding does not stop after ten minutes or if there is a large amount of bleeding or spurting, call 911 immediately. Continue to lie down and hold firm pressure until help arrives. SKIN IRRITATION: * You may experience some redness and/or swelling in the area where radiation was administered. If any skin irritation occurs, please contact your family physici an. FOLLOW UP VISIT: Keep any scheduled doctor appointments. Total Time Total Time Spent Total Time Spent (In Minutes): 35 Coding Level of Care Code 82551 INP/OBS DISCH >30 MIN Diagnoses ACS (acute coronary syndrome) I24.9 Hypokalemia E87.6
[2024-12-14] MEDS ORDERED: TICAGRELOR 90 MG HOME PACK PO STA (12:23)
[2024-12-14 12:32] VITALS: BP 121/75; PULSE 80
[2024-12-14] MEDS ORDERED: TICAGRELOR 90 MG TAB PO SCH (21:00)
== END 2024-12-14 13:57 | disposition home or self-care (01) | DRG 321 ==
LOC: ED 16:15 → SUATTDRO 20:08 → 1E 20:08 → 2S 12-13 10:13
PROC: CLB.CCO (2024-12-11 20:00)

== ENCOUNTER 2024-12-21 10:58 | Inpatient (IN) ==
--- NOTE | 2024-12-21 11:27 | Emergency Department Note ---
Impression & Plan Precordial chest pain, Acute mid back pain, History of coronary artery stent placement, COVID-19, History of AR (myocardial infarction), Hypomagnesemia ED Provider Note NAME: SHE MCKEON AGE: 34 SEX: F : 1990 ARRIVES VIA: Walk-In INFORMANT: [Patient] ED PROVIDER(S): [Bryn Pope MD] CHIEF COMPLAINT: Fever, back pain HISTORY OF PRESENT ILLNESS: The patient is a 34-year-old female who presents to the ER with complaints of shortness of breath, chills and some mid upper back pain. The patient recently had 3 coronary stents placed in the distal ramus secondary to a presumed coronary artery dissection. She was discharged from our hospital on 14 December, 7 days ago. The patient did see cardiology outpatient on the , 4 days ago. She was having some shortness of breath at that time thought possibly from her Brilinta. The patient states that this morning, she awoke with chills and then developed some upper back pain and some increased shortness of breath. She was referred to the hospital. There has been no cough or congestion. No abdominal pain or urinary complaints. She states that she is on some new medications which she believes might be responsible at least some of her complaints. PMHx/PSHx/Social Hx: See Below PHYSICAL EXAM: GENERAL: Patient is in mild distress, anxious. HEENT: No acute trauma, normocephalic atraumatic, mucous membranes moist, no nasal congestion. NECK: No stridor, no adenopathy, no meningismus, trachea is midline. LUNGS: Clear to auscultation bilaterally, no wheeze, no rhonchi, breath sounds equal. HEART: Without murmurs gallops or rubs, regular rate and rhythm. ABDOMEN: Soft, nontender, no peritonitis. Obese. EXTREMITIES: No cyanosis, full range of motion of all the joints without pain or difficulty. NEUROLOGIC: Oriented x 3, no acute motor or sensory deficits, no focal weakness. SKIN: No jaundice, no diaphoresis. DIFFERENTIAL DIAGNOSIS: Aortic dissection, AR, pneumonia, viral illness, medication reaction, UTI, among others. EMERGENCY DEPARTMENT PROCEDURES: MEDICAL DECISION MAKING: There is no leukocytosis. The patient is anemic however, looking back at recent testing, this is a stable hemoglobin value for her. There is a normal platelet count. No renal failure. Magnesium somewhat low at 1.6. No concerning liver enzyme elevation. No evidence for pancreatitis. testing was negative. ECG showed a sinus rhythm with inverted T waves along the inferior and lateral leads similar to previous ECGs. Repeat ECG showed the same findings. Cardiac enzyme testing x 1 was not consistent with acute cardiac injury. Respiratory bio fire was positive for COVID-19. Chest x-ray did not show pneumonia or CHF. No mediastinal widening. Chest CT did not show aortic dissection or PE. On exam, the patient complained of chest and back discomfort. She was mildly tachycardic upon my initial assessment, she was not hypoxic or toxic. Patient was aggressively managed given her recent past history. She was given 1 L of IV saline for hydration. She received IV Protonix, IV Zofran, IV morphine, additional morphine was given for breakthrough pain. She was given IV magnesium and IV Tylenol. I did call and speak with cardiology. The patient deserves hospitalization, troponin trending and further monitoring. I spoke with the patient about her findings, she was somewhat reassured. I did speak with case management and the on-call hospitalist. Of note, her symptoms may in fact all be from the COVID-19 infection. So far, no emergent cardiothoracic process found. Prior/Outside records/notes reviewed: Cardiology outpatient note from 12/17/2024 describing her presentation, complaints and the plan outpatient. ECG per my interpretation: Indication was chest and back pain. The ECG shows a normal sinus rhythm with a rate of 100. LVH is present. There are inverted T waves in the inferior and lateral leads. No acute ST elevation. No PVCs. The QTc is 433. Compared to an ECG from 11 December 2024, the rate has increased. Repeat ECG per my interpretation: Indication was chest pain. The ECG shows a sinus rhythm with a first-degree AV block. The rate is at 94. There is LVH present. There are inverted T waves seen in the inferior and lateral leads. No acute ST elevation, no PVCs. QTc was 445. Compared to the ECG from earlier, I see no significant change. Continuous Cardiac Monitoring per my interpretation: An order was placed for continuous cardiac monitoring. The monitor shows a rate of 99 with normal sinus rhythm. Imaging/x-ray results per my interpretation: Chest x-rays not show mediastinal widening, pneumonia or pneumothorax. Chronic Medical/Social conditions affecting care: Recent coronary stenting Care/Management discussed with: Cardiology-Dr. Murillo. Case management and the on-call hospitalist. Level of care consideration(s): After review of the information above and other included data: --I believe the patient requires escalation of care to admission Critical Care Note: I have personally spent 51 minutes of critical care time in the direct management of this patient. This includes bedside care, interpretation of diagnostic studies, and testing, discussion with consultants, patient, and family members, and other required patient management activities. This 51 minutes is in excess of all separately billable procedures. DISPOSITION: Admission Past Med/Surg History Problem List (Updated 12/21/24 @ 17:40 by Bryn Pope MD) Hypomagnesemia (Acute) History of AR (myocardial infarction) (Acute) COVID-19 (Acute) History of coronary artery stent placement (Acute) Acute mid back pain (Acute) Precordial chest pain (Acute) Atherogenic dyslipidemia Hypertensive urgency Obesity Stented coronary artery ACS (acute coronary syndrome) Hypokalemia Gestational diabetes mellitus (GDM) affecting , antepartum Obesity affecting , antepartum Morbid obesity Migraine headache (Acute) Medical History History of chicken pox History of spontaneous History of chlamydia infection Miscarriage Surgical History H/O oral surgery wisdom teeth removed 2011 Status post laparoscopic cholecystectomy 2014 Family History Mother Stroke Diabetes Glaucoma Hypertension Grandfather (Maternal) Stroke Diabetes Hypertension Myocardial infarction Prostate cancer Colorectal cancer Grandmother (Maternal) Diabetes Glaucoma Hypertension Myocardial infarction Father Hypertension Denies family history of Ovarian cancer Breast cancer Social History Smoking Status: Never smoker Do You Dip or Chew Tobacco: No; Hx Alcohol Use: No Hx Substance Use: No Preferred Language: Upper Sorbian Communication Ability: Effective Occup Ther Required: No Beliefs That Will Affect Care: None marital status: marital status details: Edgar Mckeon (33) [phone] Current Living Situation: Spouse and Family Current Living Situation Comment: lives with spouse, 3 children, no pets current occupational status: employed and student 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 [employer] Feels Safe at Home: Yes Assistive Devices: None Allergies Allergies Allergy/AdvReac Type Severity Reaction Status Date / Time cat dander Allergy Intermediate PUFFY Verified 12/18/24 09:11 EYES, ITCHY THROAT Home Meds Home Medications Medication Instructions Recorded Confirmed tirzepatide 7.5 mg/0.5 mL 7.5 mg subcut .weekly 12/18/24 12/21/24 subcutaneous pen injector Previous Rx's Medication Instructions Recorded amlodipine 5 mg tablet (Norvasc) 5 mg PO QAM #90 tabs 12/13/24 aspirin 81 mg tablet,delayed 81 mg PO QAM #90 tabs 12/13/24 release atorvastatin 20 mg tablet 20 mg PO QAM #90 tabs 12/13/24 metoprolol tartrate 25 mg tablet 25 mg PO BID #180 tabs 12/13/24 ticagrelor 90 mg tablet (Brilinta) 90 mg PO BID #180 tabs 12/13/24 Results & Data (ED) Vital Signs Vital Signs - 24 hr 12/21/24 11:01 12/21/24 11:21 12/21/24 13:00 Temperature 36.5 C Temperature Source Temporal Artery Scan Pulse Rate 105 H 99 H Pulse Rate [Finger] 101 H Pulse Rhythm Regular Pulse Strength Normal Respiratory Rate 20 20 Respiratory Effort / Characteristics Non-Labored Spontaneous Respiratory Depth Normal Blood Pressure 110/76 Blood Pressure [Right Arm] 122/68 Blood Pressure Mean 87 Blood Pressure Mean [Right Arm] 86 Blood Pressure Position Lying Pulse Oximetry 100 100 Oxygen Delivery Method Room Air Room Air Sepsis Recent Fever Within 48 Hours No Sepsis New/Unexplained Change in Mental Status N/A Sepsis Action Taken by Nursing No Action Required 12/21/24 15:00 Temperature Temperature Source Pulse Rate Pulse Rate [Finger] 99 H Pulse Rhythm Pulse Strength Respiratory Rate 20 Respiratory Effort / Characteristics Respiratory Depth Blood Pressure Blood Pressure [Right Arm] 121/82 Blood Pressure Mean Blood Pressure Mean [Right Arm] 95 Blood Pressure Position Pulse Oximetry 99 Oxygen Delivery Method Room Air Sepsis Recent Fever Within 48 Hours Sepsis New/Unexplained Change in Mental Status Sepsis Action Taken by Retirement Medications Current Medication List: was personally reviewed by me Laboratory Data Attestation: I reviewed the patient's lab results. 12/21/24 12:23 12/21/24 12:23 Lab Results 12/21/24 12/21/24 Range/Units 12:23 12:37 WBC 6.33 (4.8-10.8) K/ul RBC 4.12 L (4.20-5.40) M/uL Hgb 10.4 L (12.0-16.0) g/dl Hct 31.5 L (37.0-47.0) % MCV 76.5 L (80.0-100.0) fL MCH 25.2 (25.0-34.0) pg MCHC 33.0 (32.0-36.0) g/dL RDW Std Deviation 42.5 (36.4-46.3) fL RDW Coeff of Nir 15.4 H (11.5-14.5) % Plt Count 243 (130-400) K/uL MPV 10.4 (9.4-12.4) fL Immature Gran % (Auto) 0.3 % Neut % (Auto) 83.9 % Lymph % (Auto) 7.7 % [place] % (Auto) 5.8 % Eos % (Auto) 1.7 % Baso % (Auto) 0.6 % Neut # (Auto) 5.30 (1.40-6.50) K/uL Lymph # (Auto) 0.49 L (1.20-3.40) K/uL [place] # (Auto) 0.37 (0.11-0.59) K/uL Eos # (Auto) 0.11 (0.00-0.50) K/uL Baso # (Auto) 0.04 (0.00-0.20) K/uL Immature Gran # (Auto) 0.02 (0.01-0.20) K/uL Sodium 135 L (136-145) mmol/L Potassium 3.7 (3.5-5.1) mmol/L Chloride 105 (98-107) mmol/L Carbon Dioxide 24 (21-32) mmol/L Anion Gap 6 (3-11) BUN 8 (6-23) mg/dl Creatinine 0.61 (0.6-1.2) mg/dl Est Cr Clr Drug Dosing Not Reportable eGFR 119.49 BUN/Creatinine Ratio 13.1 (10-20) Glucose 81 (70-99(Fasting)) mg/dl Lactate 1.4 (0.4-2.0) mmol/L Calcium 8.7 (8.6-10.3) mg/dl Magnesium 1.6 L (1.7-2.4) mg/dl Total Bilirubin 0.4 (0.2-1.0) mg/dl AST 14 (13-39) U/L ALT 9 (7-52) U/L Alkaline Phosphatase 63 (34-104) U/L Troponin I High Sens 12.2 (0-14) pg/ml C-Reactive Protein 4.53 H (0-0.5) mg/dl Total Protein 7.7 (6.0-8.3) gm/dl Albumin 3.9 (3.4-5.0) gm/dl Globulin 3.8 (2.5-4.0) gm/dl Albumin/Globulin Ratio 1.0 (0.9-2) Lipase 32 (11-82) U/L Procalcitonin < 0.02 (0-0.5) ng/ml HCG, Qual Negative (Negative) Adenovirus (PCR) Not Detected (NotDetected) B. pertussis DNA (PCR) Not Detected (NotDetected) B.parapertussis DNA PCR Not Detected (NotDetected) C. pneumoniae DNA (PCR) Not Detected (NotDetected) Coronavirus OC43 (PCR) Not Detected (NotDetected) Coronavirus HKU1 (PCR) Not Detected (NotDetected) Coronavirus 229E (PCR) Not Detected (NotDetected) SARS-CoV-2 (PCR) DETECTED A (NotDetected) Coronavirus NL63 (PCR) Not Detected (NotDetected) Human Metapneumovir PCR Not Detected (NotDetected) Influenza Type A (PCR) Not Detected (NotDetected) Influenza Type B (PCR) Not Detected (NotDetected) M. pneumoniae (PCR) Not Detected (NotDetected) Parainfluenza 1 (PCR) Not Detected (NotDetected) Parainfluenza 2 (PCR) Not Detected (NotDetected) Parainfluenza 3 (PCR) Not Detected (NotDetected) Parainfluenza 4 (PCR) Not Detected (NotDetected) RSV (PCR) Not Detected (NotDetected) Entero/Rhino (PCR) Not Detected (NotDetected) Administered Medications Discontinued Medications Sodium Chloride (Nss) 1,000 mls @ 999 mls/hr IV .Q1H1M STA Stop: 12/21/24 12:03 Last Infusion: 12/21/24 13:03 Dose: Infused Documented By: Admin: 12/21/24 11:33 Dose: 999 mls/hr Documented By: BO Acetaminophen (Ofirmev) 1,000 mg in 100 mls @ 400 mls/hr IV NOW STA Stop: 12/21/24 11:35 Last Infusion: 12/21/24 11:50 Dose: Infused Documented By: Admin: 12/21/24 11:32 Dose: 400 mls/hr Documented By: BO Magnesium Sulfate/Dextrose (Magnesium Sulfate / D5w) 1 gm in 100 mls @ 100 mls/hr IV NOW STA Stop: 12/21/24 14:23 Last Infusion: 12/21/24 14:57 Dose: Infused Documented By: Admin: 12/21/24 13:56 Dose: 100 mls/hr Documented By: BO Ioversol (Optiray 320 125ml) 120 ml IV ONCE ONE Stop: 12/21/24 12:56 Last Admin: 12/21/24 12:55 Dose: 120 ml Documented By: NADIRA Morphine Sulfate (Morphine Sulfate 2 Mg/Ml Carp) 2 mg IV NOW STA Stop: 12/21/24 11:28 Last Admin: 12/21/24 11:33 Dose: 2 mg Documented By: BO Morphine Sulfate (Morphine Sulfate 2 Mg/Ml Carp) 2 mg IV NOW STA Stop: 12/21/24 13:12 Last Admin: 12/21/24 13:15 Dose: 2 mg Documented By: BO Ondansetron HCl (Ondansetron Inj 2 Mg/Ml 2 Ml Vial) 4 mg IV NOW STA Stop: 12/21/24 11:04 Last Admin: 12/21/24 11:32 Dose: 4 mg Documented By: BO Imaging Data Radiologist's Impression: Chest X-Ray 12/21/24 11:19 HISTORY: Shortness of breath. TECHNIQUE: Portable AP radiograph of the chest. COMPARISON: Chest CT dated 12/11/2024. FINDINGS: No focal consolidation. No pneumothorax or pleural effusion. Normal heart size. Left-sided aortic arch. Midline trachea. No acute osseous abnormality. monitoring manager leads overlie the chest. The included upper abdomen is unremarkable. IMPRESSION: No acute cardiopulmonary findings. Electronically signed by Sami Smalls 12-21-2024 11:43 AM Chest CTA 12/21/24 11:24 HISTORY: Chest pain radiating to the back. Recent cardiac cath. Concern for dissection. TECHNIQUE: CT angiography of the chest was performed following IV administration of 120 cc of Optiray 320 IV contrast. Images are presented in axial, sagittal, and coronal reformats. Coronal and sagittal 3D MIP reconstructions are also provided. COMPARISON: Chest CT date12/11/2024. FINDINGS: Lungs: The lungs are clear. No pneumothorax or effusion. Central tracheobronchial tree is patent. Heart/Mediastinum: Normal heart size. Coronary artery calcifications are not present. No suspicious mediastinal or hilar lymph nodes. Included thyroid gland is unremarkable. Small hiatal hernia. Thoracic esophagus is unremarkable. Vasculature: No evidence of aortic dissection or acute aortic process. No thoracic aortic aneurysm. No large or central PE is identified. Soft Tissues: Unremarkable. Upper Abdomen: Status postcholecystectomy. Included upper abdomen is otherwise unremarkable. Bones: No acute osseous abnormality. IMPRESSION: * No acute cardiopulmonary findings. No evidence of aortic dissection or acute aortic process. No large or central PE. * Chronic and/or incidental findings as above. Electronically signed by Sami Smalls 12-21-2024 13:14 PM Discharge Plan Visit Data Chief Complaint: Flu Like Symptoms Stated Complaint: SOB, BACK PAIN, CHILLS ED Provider: Bryn Pope Discharge Problem: Precordial chest pain, Acute mid back pain, History of coronary artery stent placement, COVID-19, History of AR (myocardial infarction), Hypomagnesemia Patient Disposition: Admitted As Inpatient Condition: Serious Discharge Instructions Interventions: ED Discharge Assessment Last Done: 12/21/24 16:48
[2024-12-21] MEDS: ONDANSETRON INJ 2 MG/ML 2 ML VIAL IV STA (11:32)
[2024-12-21] MEDS: ACETAMINOPHEN 1,000 MG/100 ML VIAL IV STA (11:32)
[2024-12-21] MEDS: MoRPHine SULFATE 2 MG/ML CARP IV STA ×2 (11:33→13:15)
[2024-12-21] MEDS: SODIUM CHLORIDE 0.9% 1,000 ML IV STA (11:33)
--- NOTE | 2024-12-21 11:43 | XRay Report ---
HISTORY: Shortness of breath. TECHNIQUE: Portable AP radiograph of the chest. COMPARISON: Chest CT dated 12/11/2024. FINDINGS: No focal consolidation. No pneumothorax or pleural effusion. Normal heart size. Left-sided aortic arch. Midline trachea. No acute osseous abnormality. icu specialist leads overlie the chest. The included upper abdomen is unremarkable. IMPRESSION: No acute cardiopulmonary findings. Electronically signed by Sami Smalls 12-21-2024 11:43 AM
[2024-12-21 12:45] LABS: Basophils # (auto) 0.04 K/uL (0.00-0.20); Basophils % (auto) 0.6 %; Eosinophils # (auto) 0.11 K/uL (0.00-0.50); Eosinophils % (auto) 1.7 %; Hematocrit (blood only) 31.5 % (37.0-47.0); Hemoglobin 10.4 g/dl (12.0-16.0); Immature Granulocytes # (auto) 0.02 K/uL (0.01-0.20); Immature Granulocytes % (auto) 0.3 %; Lymphocytes # (auto) 0.49 K/uL (1.20-3.40); Lymphocytes % (auto) 7.7 %; Mean Corpuscular Hemoglobin 25.2 pg (25.0-34.0); Mean Corpuscular Volume 76.5 fL (80.0-100.0); Mean Platelet Volume 10.4 fL (9.4-12.4); Monocytes # (auto) 0.37 K/uL (0.11-0.59); Monocytes % (auto) 5.8 %; Neutrophils % (auto) 83.9 %; Platelet Count 243 K/uL (130-400); RDW Coefficient of Variation 15.4 % (11.5-14.5); RDW Standard Deviation 42.5 fL (36.4-46.3); Red Blood Count 4.12 M/uL (4.20-5.40); White Blood Count 6.33 K/ul (4.8-10.8)
[2024-12-21] MEDS: OPTIRAY 320 125ml IV ONE (12:55)
--- NOTE | 2024-12-21 13:15 | CT Scan Report ---
HISTORY: Chest pain radiating to the back. Recent cardiac cath. Concern for dissection. TECHNIQUE: CT angiography of the chest was performed following IV administration of 120 cc of Optiray 320 IV contrast. Images are presented in axial, sagittal, and coronal reformats. Coronal and sagittal 3D MIP reconstructions are also provided. COMPARISON: Chest CT date12/11/2024. FINDINGS: Lungs: The lungs are clear. No pneumothorax or effusion. Central tracheobronchial tree is patent. Heart/Mediastinum: Normal heart size. Coronary artery calcifications are not present. No suspicious mediastinal or hilar lymph nodes. Included thyroid gland is unremarkable. Small hiatal hernia. Thoracic esophagus is unremarkable. Vasculature: No evidence of aortic dissection or acute aortic process. No thoracic aortic aneurysm. No large or central PE is identified. Soft Tissues: Unremarkable. Upper Abdomen: Status postcholecystectomy. Included upper abdomen is otherwise unremarkable. Bones: No acute osseous abnormality. IMPRESSION: * No acute cardiopulmonary findings. No evidence of aortic dissection or acute aortic process. No large or central PE. * Chronic and/or incidental findings as above. Electronically signed by Sami Smalls 12-21-2024 13:14 PM
[2024-12-21 13:19] LABS: Pregnancy Test, Serum Negative (Negative)
[2024-12-21 13:22] LABS: Albumin Level 3.9 gm/dl (3.4-5.0); Anion Gap 6 (3-11); Bilirubin,Total 0.4 mg/dl (0.2-1.0); Calcium 8.7 mg/dl (8.6-10.3); Carbon Dioxide 24 mmol/L (21-32); Chloride 105 mmol/L (98-107); Magnesium 1.6 mg/dl (1.7-2.4); Potassium 3.7 mmol/L (3.5-5.1); Sodium 135 mmol/L (136-145)
[2024-12-21 13:28] LABS: Alanine Aminotransferase 9 U/L (7-52); Alkaline Phosphatase 63 U/L (34-104); Aspartate Aminotransferase 14 U/L (13-39); BUN Creatinine Ratio 13.1 (10-20); Blood Urea Nitrogen 8 mg/dl (6-23); Globulin 3.8 gm/dl (2.5-4.0); Glucose 81 mg/dl (70-99(Fasting)); Lipase 32 U/L (11-82); Total Protein 7.7 gm/dl (6.0-8.3)
[2024-12-21 13:32] LABS: Troponin I High Sensitivity 12.2 pg/ml (0-14)
[2024-12-21 13:34] LABS: Adenovirus PCR Not Detected (NotDetected); Bordetella parapertussis PCR Not Detected (NotDetected); Bordetella pertussis PCR Not Detected (NotDetected); Chlamydia pneumoniae PCR Not Detected (NotDetected); Coronavirus 229E PCR Not Detected (NotDetected); Coronavirus CoV-2 (COVID19)PCR DETECTED (NotDetected); Coronavirus HKU1 PCR Not Detected (NotDetected); Coronavirus NL63 PCR Not Detected (NotDetected); Coronavirus OC43PCR Not Detected (NotDetected); Human Metapneumovirus PCR Not Detected (NotDetected); Influenza A PCR Not Detected (NotDetected); Influenza B PCR Not Detected (NotDetected); Mycoplasma pneumoniae PCR Not Detected (NotDetected); Parainfluenza Virus 1 PCR Not Detected (NotDetected); Parainfluenza Virus 2 PCR Not Detected (NotDetected); Parainfluenza Virus 3 PCR Not Detected (NotDetected); Parainfluenza Virus 4 PCR Not Detected (NotDetected); Respiratory Syncytial VirusPCR Not Detected (NotDetected); Rhinovirus/Enterovirus PCR Not Detected (NotDetected)
[2024-12-21] MEDS: MAGNESIUM SULFATE / D5W 1 GM/100 ML BAG IV STA (13:56)
--- NOTE | 2024-12-21 14:12 | History & Physical Report ---
Date of Service December 21, 2024 Assessment & Plan (1) COVID-19: (2) History of MO (myocardial infarction): (3) History of coronary artery stent placement: Yudy Lam is a pleasant 34-year-old female who presented for SOB, chills, and upper back pain upon waking on 12/21. She was recently hospitalized at [facility] from 12/11 - 12/14 for NSTEMI requiring cardiac catheterization. She reports no additional episodes of chest pain since leaving the hospital, however the acute onset of SOB at rest was new this morning. Patient is being admitted at the behest of interventional cardiology #COVID-19 Chest CTA on arrival revealed no evidence of aortic dissection or acute aortic process; no large central pulmonary embolism identified COVID (+) on arrival Isolation precautions Supportive care Patient is 100% on RA on arrival, will defer remdesivir at this time #Remote history of cardiac catheterization NSTEMI on 12/11; concern for coronary dissection during catheterization; s/p stents x 3 Troponin WNL on arrival ED did touch base with interventional cardiology on arrival Given her unique presentation during her NSTEMI, it was recommended that the patient be brought in for telemetry monitoring/serial troponins Trend troponin q6h Continue Brilinta, aspirin, atorvastatin, metoprolol #Hypomagnesemia Mild; magnesium 1.6 on arrival Mag sulfate 1 g IV x 1 Recheck a.m. mag Chronic stable conditions: HTNamlodipine Prediabeteslast A1c 5.9%, hold tirzepatide Disposition: Obs - Admit to [facility] tele Full code Heart Healthy diet VTE PPx: SCDs History of Present Illness Chief Complaint: Flulike symptoms Primary Care Provider: Bre Martinez MD Genaro is a pleasant 34-year-old female with PMH of ACS, stented coronary artery, atherogenic dyslipidemia, and hypertensive urgency. She presented on 12/21 for SOB/dyspnea remote history of NSTEMI/cardiac catheterization on 12/11 (10 days ago) requiring stented coronary artery. Discharged on 12/14. She returned to the hospital on 12/21 after she woke up this morning with chills, back pain, and SOB at rest. Since she left the hospital, she has had ongoing BRYANT, such as when she walks up steps, but today she noticed shortness of breath while she was lying flat in bed. No fevers or cough. She called her PCP to ask about cold/flu medications, and while speaking with the triage nurse, it was recommended that she go to the hospital as she was conversationally dyspneic on the phone. Patient reports that she has never had COVID in the past. She has not received any of the vaccinations or boosters. She reports that she had childhood asthma, but this has not been an issue since she was a child, and she no longer uses an albuterol inhaler. No supplemental oxygen at baseline or CPAP at night. No prior history of DVT/PE. While she has not been around anybody sick recently, she was just recently in the hospital. Patient reports that she took her regular morning medicine today. Prior to her cardiac catheterization, she was not on any medications, so all these medications are new for her. Patient denies smoking, tobacco use, recent alcohol use, or recreational drug use. Patient reports she has had no episodes of chest pain at rest or with exertion since leaving the hospital. SpO2 100% on RA; patient is mildly tachycardic at 101 bpm; vitals otherwise stable at time of admission. ED course: Magnesium sulfate 1 g IV NSS 1000 mL IV Ondansetron 4 mg IV Acetaminophen 1000 mg IV Morphine sulfate 2 mg IV x 2 ROS: Patient endorses chills, body aches, headache (attributes to headache), back pain (between the shoulder pains; achy), SOB at rest and with exertion (improving), and orthopnea. Patient denies fever, night-sweats, dizziness, lightheadedness, wheezing, chest pain, chest palpitations, pleuritic CP, cough, hemoptysis, abdominal pain, N/V/ D, changes in urinary or bowel habits, blood in the urine/stool, or numbness/tingling in the arms or legs. Allergies Allergy/AdvReac Type Severity Reaction Status Date / Time cat dander Allergy Intermediate PUFFY Verified 12/18/24 09:11 EYES, ITCHY THROAT Home Medications Medication Instructions Recorded Confirmed Type amlodipine 5 mg tablet (Norvasc) 5 mg PO QAM #90 tabs 12/13/24 12/21/24 Rx aspirin 81 mg tablet,delayed 81 mg PO QAM #90 tabs 12/13/24 12/21/24 Rx release atorvastatin 20 mg tablet 20 mg PO QAM #90 tabs 12/13/24 12/21/24 Rx metoprolol tartrate 25 mg tablet 25 mg PO BID #180 tabs 12/13/24 12/21/24 Rx ticagrelor 90 mg tablet (Brilinta) 90 mg PO BID #180 tabs 12/13/24 12/21/24 Rx tirzepatide 7.5 mg/0.5 mL 7.5 mg subcut .weekly 12/18/24 12/21/24 History subcutaneous pen injector Past Med/Surg History Problem List (Updated 12/21/24 @ 17:40 by Bryn Pope MD) Hypomagnesemia (Acute) History of MO (myocardial infarction) (Acute) COVID-19 (Acute) History of coronary artery stent placement (Acute) Acute mid back pain (Acute) Precordial chest pain (Acute) Atherogenic dyslipidemia Hypertensive urgency Obesity Stented coronary artery ACS (acute coronary syndrome) Hypokalemia Gestational diabetes mellitus (GDM) affecting , antepartum Obesity affecting , antepartum Morbid obesity Migraine headache (Acute) Medical History History of chicken pox History of spontaneous History of chlamydia infection Miscarriage Surgical History H/O oral surgery wisdom teeth removed 2011 Status post laparoscopic cholecystectomy 2013 Family History Mother Stroke Diabetes Glaucoma Hypertension Grandfather (Maternal) Stroke Diabetes Hypertension Myocardial infarction Prostate cancer Colorectal cancer Grandmother (Maternal) Diabetes Glaucoma Hypertension Myocardial infarction Father Hypertension Denies family history of Ovarian cancer Breast cancer Social History Smoking Status: Never smoker Second Hand Exposure: No; Do You Dip or Chew Tobacco: No; Tobacco Cessation Education Requested by Patient: No Hx Alcohol Use: No Hx Substance Use: No Preferred Language: Israeli Communication Ability: Effective User Acceptance Tester Required: No Beliefs That Will Affect Care: None marital status: marital status details: Edgar Mckeon (33) [phone] Current Living Situation: Family Current Living Situation Comment: lives with spouse, 3 children, no pets current occupational status: employed and student 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 [employer] Feels Safe at Home: Yes Safety Concerns: Feels Safe At This Time Assistive Devices: None Assistive Devices Comment: upper partial Review of Systems Review of Systems: See HPI above Physical Exam Physical Exam: General: no acute distress; patient's brother (Tim) at bedside; non-toxic appearing; cooperative; SpO2 100% on RA HEENT: normocephalic, atraumatic; no scleral icterus; PERRLA; vision and hearing grossly intact Neck: supple; trachea midline Skin: warm, dry without signs of tenting; no cyanosis; no rashes, bruising, lesions, or erythema noted CV: chest wall NTP; RR, mildly tachycardic around 100 bpm; S1/S2 normal; no murmurs/rubs/gallops; pulses intact and symmetric at radial, DP, and PT Lungs: no acute respiratory distress; symmetrical chest wall expansion; clear breath sounds across all lung david w/o adventitious sounds; no wheezing ABD: Soft, NTP; BS present; no rebound/guarding; suboptimal exam secondary to body habitus; no rashes or bruising on the abdomen or flanks Spine: NTP in the upper spine between the shoulder blades MSK: no tics or fasciculations; no edema noted in the LEs b/l, nonerythematous Neuro: A&Ox3; normal mood and affect; fluent speech; no focal deficits; sensation grossly intact in the LEs b/l Results & Data Results & Data Vital Signs (Past 12 Hours) Vital Signs Temp Pulse Pulse Resp BP BP Pulse Ox 12/21/24 13:00 101 H 20 122/68 100 12/21/24 11:21 99 H 12/21/24 11:01 36.5 C 105 H 20 110/76 100 O2 Del Method 12/21/24 13:00 Room Air 12/21/24 11:21 12/21/24 11:01 Room Air Laboratory Results Abnormal lab results 12/21/24 12/21/24 Range/Units 12:23 12:37 RBC 4.12 L (4.20-5.40) M/uL Hgb 10.4 L (12.0-16.0) g/dl Hct 31.5 L (37.0-47.0) % MCV 76.5 L (80.0-100.0) fL RDW Coeff of Nir 15.4 H (11.5-14.5) % Lymph # (Auto) 0.49 L (1.20-3.40) K/uL Sodium 135 L (136-145) mmol/L Magnesium 1.6 L (1.7-2.4) mg/dl SARS-CoV-2 (PCR) DETECTED A (NotDetected) Diagnostic Findings Chest X-Ray 12/21/24 11:19 HISTORY: Shortness of breath. TECHNIQUE: Portable AP radiograph of the chest. COMPARISON: Chest CT dated 12/11/2024. FINDINGS: No focal consolidation. No pneumothorax or pleural effusion. Normal heart size. Left-sided aortic arch. Midline trachea. No acute osseous abnormality. air force senior officer leads overlie the chest. The included upper abdomen is unremarkable. IMPRESSION: No acute cardiopulmonary findings. Electronically signed by Sami Smalls 12-21-2024 11:43 AM Chest CTA 12/21/24 11:24 HISTORY: Chest pain radiating to the back. Recent cardiac cath. Concern for dissection. TECHNIQUE: CT angiography of the chest was performed following IV administration of 120 cc of Optiray 320 IV contrast. Images are presented in axial, sagittal, and coronal reformats. Coronal and sagittal 3D MIP reconstructions are also provided. COMPARISON: Chest CT date12/11/2024. FINDINGS: Lungs: The lungs are clear. No pneumothorax or effusion. Central tracheobronchial tree is patent. Heart/Mediastinum: Normal heart size. Coronary artery calcifications are not present. No suspicious mediastinal or hilar lymph nodes. Included thyroid gland is unremarkable. Small hiatal hernia. Thoracic esophagus is unremarkable. Vasculature: No evidence of aortic dissection or acute aortic process. No thoracic aortic aneurysm. No large or central PE is identified. Soft Tissues: Unremarkable. Upper Abdomen: Status postcholecystectomy. Included upper abdomen is otherwise unremarkable. Bones: No acute osseous abnormality. IMPRESSION: * No acute cardiopulmonary findings. No evidence of aortic dissection or acute aortic process. No large or central PE. * Chronic and/or incidental findings as above. Electronically signed by Sami Smalls 12-21-2024 13:14 PM ECG Additional Comments: ECG revealed NSR at 100 bpm; QTc 433 Code Status & VTE Plan Code Status Full code VTE Prophylaxis Plan VTE Prophylaxis will be ordered: Yes Supervising Physician Co-Signing Physician Notes Attending Attestation & Admit Note: Pt seen/examined, chart reviewed, care plan d/w GERALDINE Gonzalez. I agree w/ the jernigan components of his admission documentation. 34yo AA female with recent hospitalization from 12/11/24 to 12/14/24. During that stay she had an ACS ultimately requiring cardiac catheterization by Dr Jose David Murillo on 12/13/24. This revealed normal coronaries with the exception of a 99% stenosed Ramus artery. Dr Murillo questioned if this could have been due to spontaneous coronary artery dissection. [id number] she required 3 stents to the Ramus. Peak HS troponin was 2266. Echo during that admission showed low-normal EF of 50-55% along with severe hypokinesis of the lateral wall. She was d/c on asa, Brilinta, metoprolol, statin. Had [facility] f/u on 12/17. Only complaint during that visit was that of dyspnea. Today she presents with cold chills, fatigue, myalgias, and a mild chest discomfort over the left breast region. This chest discomfort is different than the pain she had had with her recent ACS (her pain then was midline sternal pain with radiation to her back). Chest discomfort today is mildly worse with taking breaths and she notes that with supine positioning her breathing is worse (but not necessarily the chest discomfort). Work-up today revealed completely normal CTA chest and Bio[employer] + for COVID. Troponin negative x 2. EKG with T wave infersions inferior leads & anterolateral leads - all unchanged from prior EKD on 12/12/24. While in the ER today awaiting her bed on the floor she developed high fever and low BP. Fluid bolus was given. Sed rate and CRP were checked - ESR was >100, and CRP was 4.5. After seeing the inflammatory markers I contacted on-call cardiology, Dr Crawley. Discussed the pt's clinical presentation. Discussed whether she could have pericarditis in the midst of her recent cardiac cath/ACS? As precaution started colchicine 0.6mg BID. Ordered echo for tomorrow. Fever is likely due to COVID itself, but to be safe blood cx's dispatched, rocephin started for empiric Rx, and u/a / urine cx also ordered. As patient is higher risk for COVID progression given multiple comorbidities decision made to initiate Remdesivir IV. Physical exam: gen - looks ill but nontoxic, awake/alert, obese mouth - MMM neck - no JVD heart - RRR, s1 s2, no rub, no murmur lungs - CTA b/l, decreased BS bases chest - modestly tender to touch over sternal-costal margin on left, as well as near the left breast abd - soft, modest tenderness high epigastric region, BS+, no obvious HSM ext - no edema, pulses 2+ b/l vasc - radial pulses 2+ b/l All labs / imaging reviewed EKG - NSR, inverted T's anterolateral leads & inferior leads - unchanged from 12/12 EKG A/P: 1. 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 pre-DM 3. COVID+ 4. high fever with high inflammatory markers 5. ?acute pericarditis? 6. microcytic anemia Echo, formal cards consult tomorrow with Dr Crawley, empiric rocephin while awaiting blood/urine cx's, Remdesivir, airborne precautions, repeat CRP in am Start colchicine 0.6mg BID due to high inflammatory markers (doubt COVID causing such as COVID only began earlier today) and ?pericarditis Domingo Nick MD PG Care Time/CCT Total # of Minutes Spent Total Time Spent with Patient: Total time spent is greater than 50% in coordination of care (as documented) at patient's floor/unit and/or counseling patient: Coding [place] [address] INT INP/OBS CARE 3/75MIN Patient Type Established Medical Decision Making Moderate Complexity Diagnoses COVID-19 U07.1 History of MO (myocardial infarction) I25.2 History of coronary artery stent placement Z95.5
[2024-12-21 16:59] LABS: C Reactive Protein 4.53 mg/dl (0-0.5)
[2024-12-21] MEDS: PANTOprazole 40 MG TAB PO STA (19:38)
[2024-12-21] MEDS: ACETAMINOPHEN 325 MG TAB PO PRN (19:40)
[2024-12-21] MEDS: REMDESIVIR 200 MG in SODIUM CHLORIDE 0.9% 210 ML IV STA (21:27)
[2024-12-21] MEDS: SODIUM CHLORIDE 0.9% 1,000 ML IV ONE (21:27)
[2024-12-21] MEDS: cefTRIAXone SODIUM 2,000 MG/50 ML BAG IV SCH (21:27)
[2024-12-21] MEDS: COLCHICINE 0.6 MG TAB PO ONE (21:28)
[2024-12-21] MEDS: TICAGRELOR 90 MG TAB PO SCH (21:28)
[2024-12-21] MEDS: METOPROLOL TARTRATE 25 MG TAB PO SCH (21:28)
[2024-12-22 07:42] LABS: Basophils # (auto) 0.02 K/uL (0.00-0.20); Basophils % (auto) 0.4 %; Eosinophils # (auto) 0.07 K/uL (0.00-0.50); Eosinophils % (auto) 1.4 %; Hematocrit (blood only) 29.4 % (37.0-47.0); Hemoglobin 9.5 g/dl (12.0-16.0); Immature Granulocytes # (auto) 0.03 K/uL (0.01-0.20); Immature Granulocytes % (auto) 0.6 %; Lymphocytes # (auto) 0.78 K/uL (1.20-3.40); Mean Corpuscular Hemoglobin 24.9 pg (25.0-34.0); Mean Corpuscular Hgb Conc 32.3 g/dL (32.0-36.0); Mean Corpuscular Volume 77.2 fL (80.0-100.0); Mean Platelet Volume 10.5 fL (9.4-12.4); Monocytes # (auto) 0.69 K/uL (0.11-0.59); Monocytes % (auto) 14.2 %; Neutrophils # (auto) 3.28 K/uL (1.40-6.50); Neutrophils % (auto) 67.4 %; Platelet Count 223 K/uL (130-400); RDW Coefficient of Variation 15.7 % (11.5-14.5); RDW Standard Deviation 43.8 fL (36.4-46.3); Red Blood Count 3.81 M/uL (4.20-5.40); White Blood Count 4.87 K/ul (4.8-10.8)
[2024-12-22 07:46] LABS: Appearance Urine Clear (Clear); Bacteria Urine Automated None Seen (None Seen); Bilirubin Urine Negative (Negative); Blood Urine Negative (Negative); Cast Urine Automated 0-2 /lpf (0-2); Color Urine Yellow; Epithelial Cell Urine Auto 0-2 /hpf (0-2); Glucose Urine UA Negative (Negative); Ketones Urine Negative (Negative); Leukocyte Esterase Urine 2+ (Negative); Nitrite Urine Negative (Negative); Protein Urine Negative (Negative); RBC Urine Automated 0-2 /hpf (0-2); Specific Gravity Urine 1.017 (1.000-1.030); Urobilinogen Urine Negative (Negative); pH Urine 5.5 (4.5-7.5)
[2024-12-22] MEDS: COLCHICINE 0.6 MG TAB PO SCH (07:49)
[2024-12-22] MEDS: PANTOprazole 40 MG TAB PO SCH (07:49)
[2024-12-22] MEDS: amLODIPine BESYLATE 5 MG TAB PO SCH (07:50)
[2024-12-22] MEDS: ASPIRIN 81 MG ECTAB PO SCH (07:50)
[2024-12-22] MEDS: ATORVASTATIN 20 MG TAB PO SCH (07:51)
[2024-12-22 07:59] LABS: BUN Creatinine Ratio 8.2 (10-20); C Reactive Protein 8.17 mg/dl (0-0.5); Magnesium 1.8 mg/dl (1.7-2.4); Potassium 3.5 mmol/L (3.5-5.1)
--- NOTE | 2024-12-22 08:07 | Hospitalist Progress Note ---
Date of Service December 22, 2024 Assessment & Plan (1) COVID-19: (2) History of OK (myocardial infarction): (3) History of coronary artery stent placement: Yudy Lam is a pleasant 34-year-old female who presented for SOB, chills, and upper back pain upon waking on 12/21. She was recently hospitalized at [facility] from 12/11 - 12/14 for NSTEMI requiring cardiac catheterization. COVID + on arrival. Patient reported significant improvement on 12/22, however her inflammatory markers continue to up-trend. Potential discharge on colchicine on 12/23 if downtrending inflammatory markers. Recommend completion of 1 week of colchicine course upon discharge for potential viral pericarditis. #COVID-19 Chest CTA on arrival revealed no evidence of aortic dissection or acute aortic process; no large central pulmonary embolism identified COVID (+) on arrival Isolation precautions Supportive care Nonhypoxic throughout hospital stay Remdesivir 100 mg IV q24h #Viral pericarditis; ? Casie's syndrome Suspected secondary to patient's acute onset of symptoms CRP 4.53 -> 8.17 on arrival; continue to trend Repeat EKG on 12/22 ordered, pending While echocardiogram on 12/22 looks much better than prior (on 12/12), continued stay in the setting of elevated inflammatory markers Continue colchicine 0.6 mg p.o. BID; would plan for 5 additional days if discharged on 12/23 #Iron deficiency anemia Hgb 9.5 + MCV 77 on 12/22 Low iron on Fe panel Start iron supplementation (325 mg p.o. QAM) #Remote history of cardiac catheterization NSTEMI on 12/11; concern for coronary dissection during catheterization; s/p stents x 3 Serial troponins negative x 3 Cardiology consult appreciated Continue Brilinta, aspirin, atorvastatin, metoprolol Potential connect between spontaneous coronary artery dissection and lupus A.m. THERESA ordered #Hypomagnesemia Mild; magnesium 1.6 on arrival Mag sulfate 1 g IV x 1 Recheck a.m. mag Chronic stable conditions: HTNamlodipine Prediabeteslast A1c 5.9%, hold tirzepatide Disposition: Continued stay on [facility] tele Full code Heart Healthy diet VTE PPx: SCDs Admission and Anticipated Discharge Date Admission Date: December 21, 2024 Supervising Physician Co-Signing Physician Notes Attending Attestation: Chart reviewed, care plan d/w GERALDINE Gonzalez. I agree w/ the jernigan components of his documentation except - * for possible pericarditis - plan colchicine once or twice daily for potentially up to 90 days in duration Per the literature there is some association between SLE & spontaneous coronary dissection. In light of markedly elevated inflammatory markers and her recent cardiac history will plan to check THERESA with am blood work tomorrow. COVID-19 - stable; continue Remdesivir x 3 days. Fevers - likely 2nd to COVID-19, but blood & urine cx's are pending to ensure no bacterial source for infection. Cont empiric rocephin until cx's are at least 48 hours negative. Appreciate cardiology consult & recs. Echo reviewed -- normal LV function, normal LV wall motion, no pericardial effusion. EKG this am - unchanged from 12/21 EKG (inverted T's inferiorly & anterolaterally). Domingo Nick MD Subjective [facility] reports she is feeling much better today. Her shortness of breath has significantly improved, her back pain is gone, and her chills have resolved. She does report that she had a fever last night around 8 PM, however it broke this morning. Patient has been ambulating to the bathroom without dyspnea on exertion. No episodes of dizziness or lightheadedness. Overall, she is feeling much better than she was when she came in. ROS: Patient endorses fever overnight (resolved). Patient denies recurrence of chills, body aches, lower back pain, lighthead edness or dizziness with walking, chest pain, chest palpitations, SOB at rest or with exertion, abdominal pain, N/B/D, or numbness or tingling in arms or legs. Review of Systems Review of Systems: See HPI above Physical Exam Physical Exam: General: no acute distress; pleasant affect; non-toxic appearing; cooperative; SpO2 96% on RA HEENT: normocephalic, atraumatic; no scleral icterus; PERRLA; vision and hearing grossly intact Neck: supple; trachea midline Skin: warm, dry without signs of tenting; no cyanosis; no rashes, bruising, lesions, or erythema noted CV: chest wall NTP; RRR; S1/S2 normal; no murmurs/rubs/gallops; pulses intact and symmetric at radial, DP, and PT Lungs: no acute respiratory distress; symmetrical chest wall expansion; clear breath sounds across all lung david w/o adventitious sounds; no wheezing ABD: Soft, NTP; BS present; no rebound/guarding; suboptimal exam secondary to body habitus; no rashes or bruising on the abdomen or flanks Spine: NTP in the upper spine between the shoulder blades MSK: no tics or fasciculations; no edema noted in the LEs b/l, nonerythematous Neuro: A&Ox3; normal mood and affect; fluent speech; no focal deficits; sensation intact symmetric in lower extremity bilaterally Results & Data Results & Data Vital Signs (Past 12 Hours) Vital Signs Temp Pulse Pulse Resp BP BP Pulse Ox 12/22/24 07:46 37.2 C 105 H 18 113/71 96 12/22/24 06:59 94 H 12/22/24 03:33 38.8 C H 100 H 20 128/79 99 12/22/24 00:13 39.1 C H 102 H 20 96/53 L 98 12/21/24 22:07 115 H O2 Del Method 12/22/24 07:46 Room Air 12/22/24 06:59 12/22/24 03:33 Room Air 12/22/24 00:13 Room Air 12/21/24 22:07 Laboratory Results Abnormal lab results 12/21/24 12/21/24 12/21/24 Range/Units 12:23 12:37 18:18 RBC 4.12 L (4.20-5.40) M/uL Hgb 10.4 L (12.0-16.0) g/dl Hct 31.5 L (37.0-47.0) % MCV 76.5 L (80.0-100.0) fL MCH (25.0-34.0) pg RDW Coeff of Nir 15.4 H (11.5-14.5) % Lymph # (Auto) 0.49 L (1.20-3.40) K/uL [place] # (Auto) (0.11-0.59) K/uL ESR 104 H (0-20) mm/hr Sodium 135 L (136-145) mmol/L BUN (6-23) mg/dl BUN/Creatinine Ratio (10-20) Calcium (8.6-10.3) mg/dl Magnesium 1.6 L (1.7-2.4) mg/dl Iron (35-150) mcg/dl Transferrin (200-360) mg/dl Transferrin % Sat (15-50) % C-Reactive Protein 4.53 H (0-0.5) mg/dl Ur Leukocyte Esterase (Negative) Urine WBC (Auto) (0-5) /hpf SARS-CoV-2 (PCR) DETECTED A (NotDetected) 12/22/24 12/22/24 Range/Units 07:12 07:15 RBC 3.81 L (4.20-5.40) M/uL Hgb 9.5 L (12.0-16.0) g/dl Hct 29.4 L (37.0-47.0) % MCV 77.2 L (80.0-100.0) fL MCH 24.9 L (25.0-34.0) pg RDW Coeff of Nir 15.7 H (11.5-14.5) % Lymph # (Auto) 0.78 L (1.20-3.40) K/uL [place] # (Auto) 0.69 H (0.11-0.59) K/uL ESR (0-20) mm/hr Sodium 135 L (136-145) mmol/L BUN 5 L (6-23) mg/dl BUN/Creatinine Ratio 8.2 L (10-20) Calcium 8.0 L (8.6-10.3) mg/dl Magnesium (1.7-2.4) mg/dl Iron 21 L (35-150) mcg/dl Transferrin 188 L (200-360) mg/dl Transferrin % Sat 8 L (15-50) % C-Reactive Protein 8.17 H (0-0.5) mg/dl Ur Leukocyte Esterase 2+ H (Negative) Urine WBC (Auto) 11-20 H (0-5) /hpf SARS-CoV-2 (PCR) (NotDetected) Diagnostic Findings Chest X-Ray 12/21/24 11:19 HISTORY: Shortness of breath. TECHNIQUE: Portable AP radiograph of the chest. COMPARISON: Chest CT dated 12/11/2024. FINDINGS: No focal consolidation. No pneumothorax or pleural effusion. Normal heart size. Left-sided aortic arch. Midline trachea. No acute osseous abnormality. beater out leveling machine leads overlie the chest. The included upper abdomen is unremarkable. IMPRESSION: No acute cardiopulmonary findings. Electronically signed by Sami Smalls 12-21-2024 11:43 AM Chest CTA 12/21/24 11:24 HISTORY: Chest pain radiating to the back. Recent cardiac cath. Concern for dissection. TECHNIQUE: CT angiography of the chest was performed following IV administration of 120 cc of Optiray 320 IV contrast. Images are presented in axial, sagittal, and coronal reformats. Coronal and sagittal 3D MIP reconstructions are also provided. COMPARISON: Chest CT date12/11/2024. FINDINGS: Lungs: The lungs are clear. No pneumothorax or effusion. Central tracheobronchial tree is patent. Heart/Mediastinum: Normal heart size. Coronary artery calcifications are not present. No suspicious mediastinal or hilar lymph nodes. Included thyroid gland is unremarkable. Small hiatal hernia. Thoracic esophagus is unremarkable. Vasculature: No evidence of aortic dissection or acute aortic process. No thoracic aortic aneurysm. No large or central PE is identified. Soft Tissues: Unremarkable. Upper Abdomen: Status postcholecystectomy. Included upper abdomen is otherwise unremarkable. Bones: No acute osseous abnormality. IMPRESSION: * No acute cardiopulmonary findings. No evidence of aortic dissection or acute aortic process. No large or central PE. * Chronic and/or incidental findings as above. Electronically signed by Sami Smalls 12-21-2024 13:14 PM PG Care Time/CCT Total # of Minutes Spent Total Time Spent with Patient: Total time spent is greater than 50% in coordination of care (as documented) at patient's floor/unit and/or counseling patient: C[place] [address] SUB INP/OBS CARE 3/50MIN Patient Type Established Medical Decision Making High Complexity Diagnoses COVID-19 U07.1 History of OK (myocardial infarction) I25.2 History of coronary artery stent placement Z95.5
[2024-12-22 08:19] LABS: Ferritin 66.6 ng/ml (8-388)
--- NOTE | 2024-12-22 10:37 | Cardiology Progress Note ---
Date of Service December 22, 2024 Assessment & Plan (1) Precordial chest pain: (2) Elevated sedimentation rate: (3) Subsequent non-ST elevation (NSTEMI) myocardial infarction: (4) History of coronary artery stent placement: (5) Anemia: Plan The nature of this chest discomfort is somewhat atypical. It could possibly be a Casie's phenomenon after ID. I agree with the colchicine therapy. She tells me that her symptoms have completely resolved this morning and she is feel ing almost back to her baseline. The etiology of the anemia is not clear but it does appear to be iron deficient. Because of her needing to be on dual antiplatelet therapy for the stents I have asked her to start taking a multivitamin as well as extra iron for now. I anticipate that her menstrual cycles go to be heavier than what it normally would be. If her sed rate continues to be elevated I would consider doing a workup for vasculitis. Also this condition is extremely unusual in an otherwise fairly healthy young black female with the severely elevated sed rate makes me think of other conditions like lupus. As long as she remains stable for the rest of the morning I think she is probably okay to be discharged. Thank you for allowing me to participate in her care. I will have her follow-up with Dr. Murillo later this month as she is already scheduled to see him. Admission and Anticipated Discharge Date Admission Date: December 22, 2024 Cynthia Lam is a pleasant 34-year-old female with PMH of ACS, intermediate ramus stent x3 coronary artery for perhaps due to a spontaneous dissection on 12/13/[address] Hari Murillo, atherogenic dyslipidemia, and hypertensive urgency. She was discharged on 12/14/2024 and actually followed up with the cardiology office this past week and was in her usual state of health. She presented on 12/21 for SOB/dyspnea as well as an atypical chest discomfort which was very different than her ID pain. Initially when she first came in she was quite short of breath and could not speak comfortably because of the shortness of breath. She returned to the hospital on 12/21 after she woke up this morning with chills, back pain, and SOB at rest. Since she left the hospital, she has had ongoing BRYANT, such as when she walks up steps, but today she noticed shortness of breath while she was lying flat in bed. No fevers or cough. She called her PCP to ask about cold/flu medications, and while speaking with the triage nurse, it was recommended that she go to the hospital as she was conversationally dyspneic on the phone. Patient reports that she has never had COVID in the past. She has not received any of the vaccinations or boosters. She reports that she had childhood asthma. Patient denies smoking, tobacco use, recent alcohol use, or recreational drug use. Patient reports she has had no episodes of chest pain at rest or with exertion since leaving the hospital. SpO2 100% on RA; patient is mildly tachycardic at 101 bpm; vitals otherwise stable at time of admission. Her initial labs on admission show hemoglobin which was decreased at 9.6. She tells me that she has had anemia during in the past and usually took extra iron along with vitamins. She denies having any menstrual cycle since she has been on the dual antiplatelet therapy. She also underwent a CTA of the chest which was negative for pulmonary embolus. Interestingly her blood work shows a markedly elevated CRP greater than 8 and her sed rate is greater than 100. I was able to review her EKG from yesterday it showed sinus tachycardia there are inferolateral ST-T wave changes as well as left-ventricular hypertrophy. Her cardiac enzymes are unremarkable. Her echo was also reviewed and shows mild LVH with normal LV function and no wall motion abnormalities. Review of Systems Review of Systems: All systems reviewed & are unremarkable except as noted in HPI & below Results & Data Vital Signs (Past 12 Hours) Vital Signs Temp Pulse Pulse Resp BP BP Pulse Ox 12/22/24 08:54 36.5 C 87 18 109/59 L 90 12/22/24 07:46 37.2 C 105 H 18 113/71 96 12/22/24 06:59 94 H 12/22/24 03:33 38.8 C H 100 H 20 128/79 99 12/22/24 00:13 39.1 C H 102 H 20 96/53 L 98 O2 Del Method 12/22/24 08:54 Room Air 12/22/24 07:46 Room Air 12/22/24 06:59 12/22/24 03:33 Room Air 12/22/24 00:13 Room Air Laboratory Results Abnormal lab results 12/21/24 12/21/24 12/21/24 Range/Units 12:23 12:37 18:18 RBC 4.12 L (4.20-5.40) M/uL Hgb 10.4 L (12.0-16.0) g/dl Hct 31.5 L (37.0-47.0) % MCV 76.5 L (80.0-100.0) fL MCH (25.0-34.0) pg RDW Coeff of Nir 15.4 H (11.5-14.5) % Lymph # (Auto) 0.49 L (1.20-3.40) K/uL [place] # (Auto) (0.11-0.59) K/uL ESR 104 H (0-20) mm/hr Sodium 135 L (136-145) mmol/L BUN (6-23) mg/dl BUN/Creatinine Ratio (10-20) Calcium (8.6-10.3) mg/dl Magnesium 1.6 L (1.7-2.4) mg/dl Iron (35-150) mcg/dl Transferrin (200-360) mg/dl Transferrin % Sat (15-50) % C-Reactive Protein 4.53 H (0-0.5) mg/dl Ur Leukocyte Esterase (Negative) Urine WBC (Auto) (0-5) /hpf SARS-CoV-2 (PCR) DETECTED A (NotDetected) 12/22/24 12/22/24 Range/Units 07:12 07:15 RBC 3.81 L (4.20-5.40) M/uL Hgb 9.5 L (12.0-16.0) g/dl Hct 29.4 L (37.0-47.0) % MCV 77.2 L (80.0-100.0) fL MCH 24.9 L (25.0-34.0) pg RDW Coeff of Nir 15.7 H (11.5-14.5) % Lymph # (Auto) 0.78 L (1.20-3.40) K/uL [place] # (Auto) 0.69 H (0.11-0.59) K/uL ESR (0-20) mm/hr Sodium 135 L (136-145) mmol/L BUN 5 L (6-23) mg/dl BUN/Creatinine Ratio 8.2 L (10-20) Calcium 8.0 L (8.6-10.3) mg/dl Magnesium (1.7-2.4) mg/dl Iron 21 L (35-150) mcg/dl Transferrin 188 L (200-360) mg/dl Transferrin % Sat 8 L (15-50) % C-Reactive Protein 8.17 H (0-0.5) mg/dl Ur Leukocyte Esterase 2+ H (Negative) Urine WBC (Auto) 11-20 H (0-5) /hpf SARS-CoV-2 (PCR) (NotDetected) Diagnostic Findings See complete echo report from today ECG Additional Comments: Normal sinus rhythm LVH diffuse ST-T wave changes similar to the EKGs from the .
--- NOTE | 2024-12-22 13:51 | Electrocardiogram Report ---
Test Reason : Blood Pressure : */* mmHG Vent. Rate : 100 BPM Atrial Rate : 100 BPM P-R Int : 204 ms QRS Dur : 92 ms QT Int : 336 ms P-R-T Axes : 64 -12 -88 degrees QTcB Int : 433 ms Normal sinus rhythm Moderate voltage criteria for LVH, may be normal variant ( R in aVL , Markel product ) T wave abnormality, consider inferolateral ischemia Abnormal ECG When compared with ECG of 11-Dec-2024 22:46, No significant change was found Confirmed by Pam Crawley ([id number]) on 12/22/2024 1:50:34 PM Referred By: REFERRED SELF Confirmed By: Pam Crawley
[2024-12-22] MEDS: FERROUS SULFATE 325 MG TAB PO SCH (15:37)
[2024-12-22] MEDS: ONDANSETRON INJ 2 MG/ML 2 ML VIAL IV PRN (19:26)
[2024-12-22] MEDS: REMDESIVIR 100 MG in SODIUM CHLORIDE 0.9% 230 ML IV SCH (20:59)
[2024-12-23 06:44] LABS: Basophils # (auto) 0.02 K/uL (0.00-0.20); Basophils % (auto) 0.4 %; Eosinophils # (auto) 0.21 K/uL (0.00-0.50); Eosinophils % (auto) 3.7 %; Hematocrit (blood only) 30.3 % (37.0-47.0); Hemoglobin 9.7 g/dl (12.0-16.0); Immature Granulocytes # (auto) 0.03 K/uL (0.01-0.20); Immature Granulocytes % (auto) 0.5 %; Lymphocytes # (auto) 1.51 K/uL (1.20-3.40); Lymphocytes % (auto) 26.5 %; Mean Corpuscular Hemoglobin 24.4 pg (25.0-34.0); Mean Corpuscular Volume 76.3 fL (80.0-100.0); Mean Platelet Volume 10.6 fL (9.4-12.4); Monocytes % (auto) 12.3 %; Neutrophils # (auto) 3.23 K/uL (1.40-6.50); Neutrophils % (auto) 56.6 %; Platelet Count 247 K/uL (130-400); RDW Coefficient of Variation 15.5 % (11.5-14.5); RDW Standard Deviation 43.4 fL (36.4-46.3); Red Blood Count 3.97 M/uL (4.20-5.40)
[2024-12-23 07:04] LABS: BUN Creatinine Ratio 8.8 (10-20); C Reactive Protein 7.11 mg/dl (0-0.5); Calcium 8.2 mg/dl (8.6-10.3); Creatinine Clr Calc Pharmacy 170.1 ml/min; Potassium 3.5 mmol/L (3.5-5.1)
--- NOTE | 2024-12-23 08:12 | Electrocardiogram Report ---
Test Reason : Blood Pressure : */* mmHG Vent. Rate : 87 BPM Atrial Rate : 87 BPM P-R Int : 218 ms QRS Dur : 96 ms QT Int : 360 ms P-R-T Axes : 64 -27 -52 degrees QTcB Int : 433 ms Sinus rhythm with 1st degree A-V block Moderate voltage criteria for LVH, may be normal variant T wave abnormality, consider inferior ischemia T wave abnormality, consider anterolateral ischemia Abnormal ECG When compared with ECG of 21-Dec-2024 13:09, (unconfirmed) T wave inversion now evident in Anterior leads Confirmed by Pam Crawley ([id number]) on 12/23/2024 8:11:54 AM Referred By: REFERRED SELF Confirmed By: Pam Crawley
[2024-12-23 11:07] VITALS: BP 102/72; RESP 18; TEMP 97.7; O2SAT 97
[2024-12-23] MEDS: Nursing to Pharmacy Communication SCH (11:31)
--- NOTE | 2024-12-23 11:43 | Discharge Summary ---
Discharge Summary Date of Service December 23, 2024 Principal Dx & Hospital Course #1 = Principal Diagnosis (1) COVID-19: (2) History of AL (myocardial infarction): (3) History of coronary artery stent placement: Yudy Lam is a pleasant 34-year-old female who presented for SOB, chills, and upper back pain upon waking on 12/21. She was recently hospitalized at [facility] from 12/11 - 12/14 for NSTEMI requiring cardiac catheterization. COVID + on arrival. Patient reported significant improvement on 12/22, however her inflammatory markers continue to up-trend. Potential discharge on colchicine on 12/23 if downtrending inflammatory markers. Recommend completion of 1 week of colchicine course upon discharge for potential viral pericarditis. #COVID-19 Chest CTA on arrival revealed no evidence of aortic dissection or acute aortic process; no large central pulmonary embolism identified COVID (+) on arrival Isolation precautions Supportive care Nonhypoxic throughout hospital stay Remdesivir 100 mg IV q24h #Viral pericarditis; ? Casie's syndrome Suspected secondary to patient's acute onset of symptoms CRP 4.53 -> 8.17 on arrival; continue to trend Repeat EKG on 12/22 ordered, pending While echocardiogram on 12/22 looks much better than prior (on 12/12), continued stay in the setting of elevated inflammatory markers Continue colchicine 0.6 mg p.o. BID; would plan for 5 additional days if discharged on 12/23 #Iron deficiency anemia Hgb 9.5 + MCV 77 on 12/22 Low iron on Fe panel Start iron supplementation (325 mg p.o. QAM) #Remote history of cardiac catheterization NSTEMI on 12/11; concern for coronary dissection during catheterization; s/p stents x 3 Serial troponins negative x 3 Cardiology consult appreciated Continue Brilinta, aspirin, atorvastatin, metoprolol Potential connect between spontaneous coronary artery dissection and lupus A.m. THERESA ordered #Hypomagnesemia Mild; magnesium 1.6 on arrival Mag sulfate 1 g IV x 1 Recheck a.m. mag Chronic stable conditions: HTNamlodipine Prediabeteslast A1c 5.9%, hold tirzepatide Disposition: Continued stay on [facility] tele Full code Heart Healthy diet VTE PPx: SCDs Admission HPI Per Admitting Provider Genaro is a pleasant 34-year-old female with PMH of ACS, stented coronary artery, atherogenic dyslipidemia, and hypertensive urgency. She presented on 12/21 for SOB/dyspnea remote history of NSTEMI/cardiac catheterization on 12/11 (10 days ago) requiring stented coronary artery. Discharged on 12/14. She returned to the hospital on 12/21 after she woke up this morning with chills, back pain, and SOB at rest. Since she left the hospital, she has had ongoing BRYANT, such as when she walks up steps, but today she noticed shortness of breath while she was lying flat in bed. No fevers or cough. She called her PCP to ask about cold/flu medications, and while speaking with the triage nurse, it was recommended that she go to the hospital as she was conversationally dyspneic on the phone. Patient reports that she has never had COVID in the past. She has not received any of the vaccinations or boosters. She reports that she had childhood asthma, but this has not been an issue since she was a child, and she no longer uses an albuterol inhaler. No supplemental oxygen at baseline or CPAP at night. No prior history of DVT/PE. While she has not been around anybody sick recently, she was just recently in the hospital. Patient reports that she took her regular morning medicine today. Prior to her cardiac catheterization, she was not on any medications, so all these medications are new for her. Patient denies smoking, tobacco use, recent alcohol use, or recreational drug use. Patient reports she has had no episodes of chest pain at rest or with exertion since leaving the hospital. SpO2 100% on RA; patient is mildly tachycardic at 101 bpm; vitals otherwise stable at time of admission. ED course: Magnesium sulfate 1 g IV NSS 1000 mL IV Ondansetron 4 mg IV Acetaminophen 1000 mg IV Morphine sulfate 2 mg IV x 2 ROS: Patient endorses chills, body aches, headache (attributes to headache), back pain (between the shoulder pains; achy), SOB at rest and with exertion (improving), and orthopnea. Patient denies fever, night-sweats, dizziness, lightheadedness, wheezing, chest pain, chest palpitations, pleuritic CP, cough, hemoptysis, abdominal pain, N/V/D, changes in urinary or bowel habits, blood in the urine/stool, or numbness/tingling in the arms or legs. Discharge Plan Discharge Items Patient Disposition: Home - Self-Care Reason For Visit: COVID-19 infection Discharge Diagnosis: 1. COVID-19 infection 2. question of pericarditis - improved 3. recent heart catheterization with stent placement 4. iron deficiency anemia 5. markedly elevated sed rate - suspected to be due to #2; other lab tests pending Activity: As commented below Activity Comment: light activities only until you see cardiology later in December Sexual Activity: Wait until after follow-up appointment Exercise/Sports: Wait until after follow-up appointment Non-emergency contact: Primary Care Provider and [employer] Call non-emergency contact if: you have any medication questions, your symptoms worsen, your pain is not controlled, your pain is worsening, your pain is unusual for you and your pain is concerning for you Follow-up/Referrals: Jose David Murillo MD, PhD [Physician] - 01/14/25 2:30 pm (cardiology follow-up) Bre Martinez MD [Primary Care Provider] - (PLEASE CALL YOUR PRIMARY CARE PROVIDER TO SCHEDULE A HOSPITAL DISCHARGE FOLLOW-UP APPOINTMENT WITHIN 7 DAYS) Diet: Heart Healthy Addtl Attending Provider Instructions: Mrs Mckeon, You were hospitalized for COVID-[address] scan of your lungs did not show any pneumonia from COVID or any blood clots. You were treated with 3 days of IV antiviral medicine called Remdesivir for the COVID-19. When you came to the hospital you had mild chest discomfort over the left chest/breast. We checked labs called "inflammatory markers" which go to very high levels if there is inflammation in the body. Your sed rate and CRP inflammatory markers were indeed elevated. Given the mild chest discomfort, the elevated sed rate/crp, and your recent heart event we were concerned that perhaps you had acute pericarditis (see handout). This is when the lining of the heart is inflamed/irritated. Pericarditis responds rather quickly to a medicine called colchicine. Your discomforts improved by hospital day #2 with the colchicine. To be complete we did send off a screening test for Lupus (an autoimmune disease). This lab is called an "THERESA." Lupus can cause the inflammatory markers to go high, and there is some association of Lupus with the recent coronary artery event that you had that led to placement of stents. We will let you know if the THERESA test comes back abnormal. Hopefully, however, the inflammatory markers are simply high due to the possible pericarditis. Finally, lab work for your heart this admission was normal. Thus, no heart attack was found. Your echocardiogram done on 12/22 returned normal. Your EKGs from this admission were similar to the EKGs done during the prior admission. Recommendations - 1. Take colchicine 0.6mg twice daily unless otherwise directed by Dr Murillo from cardiology. Most common side effect is diarrhea. This medicine is for the suspected pericarditis. 2. Continue all of your other usual heart medicines. 3. COVID-19 - * Plan to "isolate" at home until Monday, December 27 * Just assume you are likely contagious to other people through Monday * if Monday comes and you are feeling well/feeling better and haven't had any fever in over 24 hours you can end your isolation period; that is, you can leave your house and resume usual activities * even after your isolation period ends please plan to wear a mask when you leave your house for 4-5 days just to be on the safe side * over the next week or two you may be more tired than normal; this is common with COVID infection; plan to rest when needed, focus on good nutrition & hydration, etc. * the cough from COVID can sometimes last a few weeks; feel free to take [id number] Mucinex up to 1200mg twice daily as needed for cough/congestion 4. Iron deficiency - * take [id number] Ferrous sulfate (iron tablets) 325mg at least every other day * you may need to take the iron for 3-4 months * your family doctor can follow your blood iron levels over time * common side effects include constipation & the stool being dark from the iron itself * iron deficiency in young women is usually due to heavy menstrual cycles * if your cycles become heavy or prolonged please see gynecology for this * if you ever notice bright red blood in your stool OR very black/tarry stools (which usually looks different than the color that iron makes) this could be a sign that your low iron is due to gastrointestinal bleeding; in that cause you would need to see a GI doctor Follow-up - see separate section Return to [facility] if - * you have worsening shortness of breath * you develop recurrent chest pains * any other concerns It was our pleasure to care for you! -Dr Nick Pending Studies at Discharge: Yes (blood and urine cultures but thus far negat felipe; THERESA screen (test for lupus)) Stand-Alone Forms: [facility], Smoking Cessation Medications and DC Order Prescriptions: New ferrous sulfate 325 mg (65 mg iron) Tablet,Delayed Release (Dr/Ec) 325 mg PO DIRECTED Qty: 30 5RF Rx Instructions: purchase [id number]; take at least every other day colchicine [Colcrys] 0.6 mg Tablet 0.6 mg PO BID Qty: 60 2RF Continued tirzepatide 7.5 mg/0.5 mL pen injector 7.5 mg subcut .weekly Rx Instructions: 7.5 mg subcut weekly. no fill history available atorvastatin 20 mg Tablet 20 mg PO QAM Qty: 90 3RF amlodipine [Norvasc] 5 mg Tablet 5 mg PO QAM Qty: 90 3RF aspirin 81 mg Tablet,Delayed Release (Dr/Ec) 81 mg PO QAM Qty: 90 3RF metoprolol tartrate 25 mg Tablet 25 mg PO BID Qty: 180 3RF Brilinta 90 mg Tablet 90 mg PO BID Qty: 180 3RF Discharge Orders: Discharge Order (Routine); Ordered 12/23/24 Ordered By: Domingo Flor/Other Patient Handouts: Colchicine Oral Tablet, ED Anemia, Iron- Deficiency (Adult), ED Pericarditis Admission Data Admit Date/Time: 12/22/24 08:18 Attending Provider: Domingo Nick Admit Provider: Ivan Gonzalez Primary Care Provider: Bre Martinez I. Other Providers: Domingo Nick; Pam Crawley Hospital Stay Data Consultations 12/21/24 14:18 ED Decision to Admit Stat 12/21/24 19:33 Consult Cardiology Routine Diagnostic Imagining Performed 12/21/24 11:24 CT angio chest dissec wo/w con Stat Pending Results Patient Have Any Pending Studies at Discharge: Yes (blood and urine cultures but thus far negative; THERESA screen (test for lupus)) Discharge Instructions Given to Patient (Per Discharging Provider) Mrs Mckeon, You were hospitalized for COVID-[address] scan of your lungs did not show any pneumonia from COVID or any blood clots. You were treated with 3 days of IV antiviral medicine called Remdesivir for the COVID-19. When you came to the hospital you had mild chest discomfort over the left chest/breast. We checked labs called "inflammatory markers" which go to very high levels if there is inflammation in the body. Your sed rate and CRP inflammatory markers were indeed elevated. Given the mild chest discomfort, the elevated sed rate/crp, and your recent heart event we were concerned that perhaps you had acute pericarditis (see handout). This is when the lining of the heart is inflamed/irritated. Pericarditis responds rather quickly to a medicine called colchicine. Your discomforts improved by hospital day #2 with the colchicine. To be complete we did send off a screening test for Lupus (an autoimmune disease). This lab is called an "THERESA." Lupus can cause the inflammatory markers to go high, and there is some association of Lupus with the recent coronary artery event that you had that led to placement of stents. We will let you know if the THERESA test comes back abnormal. Hopefully, however, the inflammatory markers are simply high due to the possible pericarditis. Finally, lab work for your heart this admission was normal. Thus, no heart attack was found. Your echocardiogram done on 12/22 returned normal. Your EKGs from this admission were similar to the EKGs done during the prior admission. Recommendations - 1. Take colchicine 0.6mg twice daily unless otherwise directed by Dr Murillo from cardiology. Most common side effect is diarrhea. This medicine is for the suspected pericarditis. 2. Continue all of your other usual heart medicines. 3. COVID-19 - * Plan to "isolate" at home until Monday, December 27 * Just assume you are likely contagious to other people through Monday * if Monday comes and you are feeling well/feeling better and haven't had any fever in over 24 hours you can end your isolation period; that is, you can leave your house and resume usual activities * even after your isolation period ends please plan to wear a mask when you leave your house for 4-5 days just to be on the safe side * over the next week or two you may be more tired than normal; this is common with COVID infection; plan to rest when needed, focus on good nutrition & hydration, etc. * the cough from COVID can sometimes last a few weeks; feel free to take [id number] Mucinex up to 1200mg twice daily as needed for cough/congestion 4. Iron deficiency - * take pmaj-hgp-dlvjinq Ferrous sulfate (iron tablets) 325mg at least every other day * you may need to take the iron for 3-4 months * your family doctor can follow your blood iron levels over time * common side effects include constipation & the stool being dark from the iron itself * iron deficiency in young women is usually due to heavy menstrual cycles * if your cycles become heavy or prolonged please see gynecology for this * if you ever notice bright red blood in your stool OR very black/tarry stools (which usually looks different than the color that iron makes) this could be a sign that your low iron is due to gastrointestinal bleeding; in that cause you would need to see a GI doctor Follow-up - see separate section Return to [facility] if - * you have worsening shortness of breath * you develop recurrent chest pains * any other concerns It was our pleasure to care for you! -Dr Nick Coding Diagnoses COVID-19 U07.1 History of AL (myocardial infarction) I25.2 History of coronary artery stent placement Z95.5
[2024-12-23 14:50] VITALS: PULSE 79
[2024-12-24 14:57] LABS: Anti Nuclear Antibody Screen NEGATIVE (NEGATIVE)
== END 2024-12-23 15:23 | disposition home or self-care (01) | DRG 177 ==
LOC: SUATTDRO → ED 10:58 → 2W 10:58